=== PATIENT | female | born 1960 | race Caucasian/White ===

== ENCOUNTER 2021-03-18 12:24 | Outpatient (CLI) | payer MEDICARE, MEDICAID, SELFPAY ==
--- NOTE | ~2021-03-18 | CT_ITS ---
EXAMINATION: CT abdomen pelvis wo/w con DATE: 03/18/2021 14:05 INDICATION: Abdominal pain. Hematuria. TECHNIQUE: Computed tomography (CT) of the abdomen and pelvis was performed without intravenous contr ast. The dose-length product was 2633.81 mGy-cm. Automated exposure control and iterative reconstruct ion technique were employed. COMPARISON: CT dated 12/27/2018. FINDINGS: Lung bases are unremarkable. No significant pleural or pericardial effusion. Small hiatal h ernia. No significant vascular abnormality. No lymphadenopathy. Nonobstructive bowel gas pattern. Nor mal appendix. Fatty infiltration of the liver. Ureters are normal in course and caliber. No renal/ure teral stones or hydronephrosis. Gallbladder is present. Fatty infiltration of the liver. The spleen, pancreas, adrenal glands and kidneys are unremarkable. B ladder is unremarkable. No abnormal pelvic masses or fluid collections. No free air or free fluid. Mi ld osteoarthritis of the hips. No lytic or blastic lesions. Mild lumbar spondylosis. IMPRESSION: 1. No acute abnormality. No findings to account for hematuria. Reviewed, dictated and finalized at location B.
[2021-03-18 13:13] LABS: Add Urine Microscopic? YES; Appearance Urine Cloudy (Clear); Bacteria Urine Trace /hpf; Bilirubin Urine Negative (Negative); Blood Urine Negative (Negative); Color Urine Yellow (Yellow); Glucose Urine UA Negative (Negative); Ketones Urine Trace mg/dL (Negative); Leukocyte Esterase Ur Negative LEU/UL (Negative); Mucus Urine Rare /lpf; Nitrate Urine Negative (Negative); Protein Urine 1+ mg/dL (Negative); Squamous Epithelial Cell Urine Many /hpf (Few); WBC Urine 0-3 /hpf
[2021-03-18 13:17] LABS: Specific Grav Ur 1.033 (1.001-1.035)
[2021-03-18 13:52] LABS: Estimated Glomerular Filt Rate 57
== END 2021-03-18 12:25 | disposition home or self-care (01) ==
PROVIDERS: PCP Emergency Medicine; Visit Provider Emergency Medicine
DX: R10.9 Unspecified abdominal pain (principal); R31.9 Hematuria, unspecified
CPT/HCPCS: 74178; 81001; Q9967

== ENCOUNTER 2021-03-21 15:55 | Emergency (ER) | payer MEDICARE, MEDICAID, SELFPAY ==
--- NOTE | ~2021-03-21 | CT_ITS ---
EXAMINATION: CT abdomen pelvis w con DATE: 03/21/2021 20:04 INDICATION: Right-sided abdominal pain. TECHNIQUE: Computed tomography (CT) of the abdomen and pelvis was performed with 100 mL Omnipaque-350 intravenous contrast. Automated exposure control and iterative reconstruction technique were employe d. The dose-length product was 1417.82 mGy-cm. COMPARISON: 03/18/2021 FINDINGS: Lung bases are clear. Heart size is normal. No pericardial or pleural effusion. Small sliding-type hi atal hernia. Diffuse hepatic steatosis with geographic region of focal sparing in the posterior right hepatic lobe. Gallbladder, spleen, pancreas, right kidney and left adrenal gland are normal. 1.3 cm right adrenal adenoma with characteristic low attenuation on prior noncontrast imaging. Again seen is mild left renal atrophy with small region of cortical atrophy. Bladder is normal. The uterus is not identified and has likely been surgically resected. Bowels including the appendix are normal. No free intraperitoneal gas or fluid. No pathologically enlarged abdominal or pelvic lymphadenopathy. Mild f ocal lumbar levocurvature with mild spondylosis. IMPRESSION: 1. No acute intra-abdominal/pelvic process. 2. Small sliding-type hiatal hernia. 3. Diffuse hepatic steatosis. Reviewed, dictated and finalized at location A.
[2021-03-21 15:59] VITALS: BP 136/81; PULSE 69; RESP 18; TEMP 35.9; O2SAT 96
[2021-03-21 16:15] LABS: Basophils Percent Auto 0.1 % (0.2-1.2); Hematocrit 45.5 % (37.0-47.0); Hemoglobin 14.8 g/dL (12.0-15.0); Immature Granulocyte Absolute 0.03 K/mm3 (0.00-0.031); Immature Granulocyte Percent A 0.4 % (0-0.5); Lymphocytes Percent Auto 28.1 % (18.3-44.2); Mean Corpuscular HGB Conc 32.5 g/dl (32-36); Mean Corpuscular Volume 95.2 fl (80-100); Monocytes Absolute Auto 0.5 K/mm3 (0.1-0.6); Neutrophils Absolute Auto 4.3 K/mm3 (1.3-6.7); Neutrophils Percent Auto 63.4 % (45.5-73.1); Platelet Count Result 223 k/mm3 (150-375); Red Blood Count 4.78 M/mm3 (4.2-5.4); Red Cell Distribution Width 13.2 % (11.5-14.5); White Blood Count 6.8 K/mm3 (4.5-10.0)
[2021-03-21 16:26] LABS: Alanine Aminotransferase 7 U/L (4-35); Albumin Level 4.4 g/dL (3.5-5.1); Alkaline Phosphatase 99 U/L (38-126); Anion Gap 7 mmol/L (8-16); Aspartate Amino Transferase 32 U/L (14-36); Bilirubin,Total 0.3 mg/dL (0.2-1.3); Blood Urea Nitrogen 34 mg/dL (7-17); Calcium 9.6 mg/dL (8.4-10.2); Carbon Dioxide 30 mmol/L (22-30); Chloride 101 mmol/L (98-107); Estimated CRCL calculation 55 ml/min; Estimated Glomerular Filt Rate 51; Glucose 95 mg/dL (65-105); Lipase 89 U/L (23-300); Potassium 4.5 mmol/L (3.4-5.0); Sodium 138 mmol/L (137-145)
[2021-03-21 18:06] VITALS: BP 168/86; PULSE 65; RESP 14; TEMP 37; O2SAT 98
--- NOTE | 2021-03-21 18:47 | ED.ABDPAIN ---
HPI - Abdominal Pain General Chief Complaint: Abdominal Pain Stated Complaint: R Flank pain Time Seen by Provider: 03/21/21 18:09 Source: patient Mode of arrival: ambulatory Limitations: no limitations History of Present Illness HPI narrative: This is a 60 year old female that presents to the ER for right sided abdominal pain. Reports it has been intermittent over the last couple of weeks. Reports worsening over the last couple of days. Associated with diarrhea and dysuria. Denies fever, vomiting, or hematuria. Related Data Home Medications Medication Instructions Recorded Confirmed atorvastatin 03/21/21 carbidopa-levodopa tablet 03/21/21 divalproex PO 03/21/21 famotidine 03/21/21 levothyroxine 03/21/21 lurasidone [Latuda] mg 03/21/21 03/21/21 metoprolol succinate PO 03/21/21 Allergies Allergy/AdvReac Type Severity Reaction Status Date / Time hydrocodone Allergy Unknown Unknown Verified 03/21/21 16:05 meperidine Allergy Unknown Unknown Verified 03/21/21 16:05 morphine Allergy Unknown Unknown Verified 03/21/21 16:05 oxycodone Allergy Unknown Unknown Verified 03/21/21 16:05 Review of Systems Review of Systems: Narrative: CONSTITUTIONAL: Denies fever GASTROINTESTINAL: Reports abdominal pain, and diarrhea. Denies nausea and vomiting GENITOURINARY: Reports dysuria. Denies hematuria. All systems reviewed & are unremarkable except as noted in HPI and below PMFSH Past Medical History Medical History (Updated 03/21/21 @ 20:48 by Cynthia Suarez PA-C) History of hyperlipidemia History of hypertension History of hypothyroidism Social History Social History Smoking status: Former smoker Gender identity (if verbalized by the patient): Female Exam Narrative: Exam Narrative: GENERAL: Well-appearing, well-nourished, and in no acute distress. HEAD: Normocephalic, atraumatic. EYES: EOMI. CHEST: Clear to auscultation. No respiratory distress. No wheezes rales or rhonchi HEART: Regular rate and rhythm. No murmur heard. Normal peripheral pulses. ABDOMEN: Soft, nondistended, normal active bowel sounds. Tender to palpation throughout the right side of the abdomen, without guarding EXTREMITIES: Normal range of motion. No edema. SKIN: Warm, dry, no rash. NEURO: No focal deficits. Alert and oriented x3. PSYCH: Normal mood and affect Course Vital Signs Vital signs: Vital Signs Temperature 96.7 F L 03/21/21 15:59 Pulse Rate 69 03/21/21 15:59 Respiratory Rate 18 03/21/21 15:59 Blood Pressure 136/81 03/21/21 15:59 Pulse Oximetry 96 03/21/21 15:59 Temperature 98.6 F 03/21/21 18:06 Pulse Rate 63 03/21/21 20:45 Respiratory Rate 21 H 03/21/21 20:45 Blood Pressure 153/97 H 03/21/21 20:45 Pulse Oximetry 97 03/21/21 20:45 MDM - Abdominal Pain MDM Narrative Medical decision making narrative: Patient presents to the ER for abdominal pain present over the last couple of weeks. Worsening over the last couple of days. She is afebrile and nontoxic appearing. Vitals are stable. CBC and metabolic panel without concerning findings. Lipase is normal. UA without evidence of infection. CT scan abdomen and pelvis is without acute findings. Patient updated on case findings. Able to tolerate p.o. intake. She is stable and felt appropriate for further outpatient evaluation. She is to follow-up with primary care doctor. She was given warnings to return to the ER Lab Data Attestation: I reviewed the patient's lab results. Result diagrams: 03/21/21 16:08 03/21/21 16:08 Labs: Lab Results 03/21/21 03/21/21 03/21/21 Range/Units 16:08 16:08 19:18 WBC 6.8 (4.5-10.0) K/mm3 RBC 4.78 (4.2-5.4) M/mm3 Hgb 14.8 (12.0-15.0) g/dL Hct 45.5 (37.0-47.0) % MCV 95.2 (80-100) fl MCH 31.0 (26-34) pg MCHC 32.5 (32-36) g/dl RDW 13.2 (11.5-14.5) % Plt Count 223 (150-375) k/mm3 MPV 10.0 (7.4-10.4) fl Immature Gran % (Auto)
[2021-03-21 19:29] LABS: Add Urine Microscopic? YES; Appearance Urine Clear (Clear); Bilirubin Urine Negative (Negative); Blood Urine 2+ (Negative); Color Urine Yellow (Yellow); Glucose Urine UA Negative (Negative); Ketones Urine Trace mg/dL (Negative); Leukocyte Esterase Ur Negative LEU/UL (Negative); Mucus Urine Rare /lpf; Nitrate Urine Negative (Negative); Protein Urine Negative (Negative); Specific Grav Ur 1.028 (1.001-1.035); Squamous Epithelial Cell Urine Rare /hpf (Few); Urobilinogen Urine Negative mg/dL (<2.0)
[2021-03-21] MEDS: KETOROLAC 30 MG/ML VIAL (*BKC) IV PUSH (20:43)
[2021-03-21 20:45] VITALS: BP 153/97; PULSE 63; RESP 21; O2SAT 97
[2021-03-21 21:22] VITALS: BP 127/81; PULSE 61; RESP 14; O2SAT 98
== END 2021-03-21 21:16 | disposition home or self-care (01) ==
PROVIDERS: Emergency Provider Emergency Medicine; PCP Emergency Medicine
DX: R10.9 Unspecified abdominal pain (principal); E78.5 Hyperlipidemia, unspecified; I10 Essential (primary) hypertension; E03.9 Hypothyroidism, unspecified; Z87.891 Personal history of nicotine dependence; K44.9 Diaphragmatic hernia without obstruction or gangrene; K76.0 Fatty (change of) liver, not elsewhere classified
CPT/HCPCS: 36415; 74177; 80053; 81001; 83690; 85025; 96374; 96375; 99284; J0131; J1885; Q9967

== ENCOUNTER 2023-04-16 13:46 | Outpatient (CLI) | payer MEDICARE, MEDICAID, SELFPAY ==
--- NOTE | ~2023-04-16 | US_ITS ---
US thyroid INDICATION: Hypothyroidism TECHNIQUE: Real-time sonographic images of the thyroid gland were obtained. COMPARISON: No prior studies for comparison. FINDINGS: The right thyroid lobe measures 3.1 x 1.4 x 0.9 cm. The left thyroid lobe measures 3.2 x 1 .1 x 1.2 cm. There is normal echotexture and echogenicity throughout the thyroid gland. No discrete n odules identified. Normal vascular flow is present. IMPRESSION: 1. Atrophic thyroid without discrete nodule or abnormal vascularity. Reviewed, dictated and finalized at location L.
== END 2023-04-16 13:47 | disposition home or self-care (01) ==
PROVIDERS: PCP Emergency Medicine; Visit Provider Emergency Medicine
DX: E03.9 Hypothyroidism, unspecified (principal)
CPT/HCPCS: 76536

== ENCOUNTER 2023-12-28 13:01 | Emergency (ER) | payer MEDICARE, MEDICAID, SELFPAY ==
[2023-12-28 13:03] VITALS: BP 120/86; PULSE 78; RESP 16; TEMP 36.8; O2SAT 98
--- NOTE | 2023-12-28 13:59 | ED.GENADULT ---
HPI - General Adult General Chief complaint: Extremity Problem,Nontraumatic Stated complaint: CHRONIC LYMPHADEMA PAIN Time Seen by Provider: 12/28/23 13:58 Source: patient Mode of arrival: ambulatory Limitations: no limitations History of Present Illness HPI narrative: This is a 63-year-old female who presents to the ED with chief complaint of bilateral chronic lower extremity edema. Reports that she has chronic lymphedema she is here for the same today. Patient is a resident at [facility] not right now and is told by her upper caser to come to the ER for the leg swelling. Patient states that she does not want to be here and knows that she needs to follow-up with her PCP on this. She states that she has no change in the leg swelling but she does have constant burning which is bothersome to her. Denies any wounds, fevers, chills, nausea, vomiting. Related Data Home Medications Medication Instructions Recorded Confirmed atorvastatin 20 mg tablet 03/21/21 carbidopa 25 mg-levodopa 100 mg tablet 03/21/21 tablet divalproex 500 mg tablet,extended PO 03/21/21 release 24 hr famotidine 20 mg tablet 03/21/21 levothyroxine 100 mcg tablet 03/21/21 lurasidone 40 mg tablet (Latuda) mg 03/21/21 03/21/21 metoprolol succinate 50 mg PO 03/21/21 tablet,extended release 24 hr Allergies Allergy/AdvReac Type Severity Reaction Status Date / Time hydrocodone Allergy Unknown Unknown Verified 03/21/21 16:05 meperidine Allergy Unknown Unknown Verified 03/21/21 16:05 morphine Allergy Unknown Unknown Verified 03/21/21 16:05 oxycodone Allergy Unknown Unknown Verified 03/21/21 16:05 Review of Systems Review of Systems: All systems as dictated in [facility] Past Medical History Medical History (Updated 12/28/23 @ 14:01 by Serg Henriquez PA-C) History of hyperlipidemia History of hypertension History of hypothyroidism Social History Social History Smoking status: Former smoker Gender identity (if verbalized by the patient): Female Exam Narrative: GENERAL: Well-appearing, well-nourished, and in no acute distress. HEAD: Normocephalic, atraumatic. EYES: PERRLA and EOMI. ENT: Nares clear, no rhinorrhea or epistaxis. Mucous membranes moist. Oropharynx without tonsillar hypertrophy exudate or other lesions. NECK: Supple. No adenopathy or masses. CHEST: No respiratory distress. Clear to auscultation. No wheezes rales or rhonchi HEART: Regular rate and rhythm. No murmur heard. Normal peripheral pulses. ABDOMEN: Soft, nontender, nondistended, normal active bowel sounds. MSK: Bilateral lower extremity nonpitting edema from feet to knee level. No redness, warmth. Minimal tenderness bilaterally. Neurovascularly intact distally. SKIN: Warm, dry, no rash. NEURO: Alert and oriented x3. No focal deficits. PSYCH: Normal mood and affect. Course Vital Signs Vital signs: Vital Signs Temperature 98.2 F 12/28/23 13:03 Pulse Rate 78 12/28/23 13:03 Respiratory Rate 16 12/28/23 13:03 Blood Pressure 120/86 12/28/23 13:03 Pulse Oximetry 98 12/28/23 13:03 Oxygen Delivery Room Air 12/28/23 13:03 Temperature 98.2 F 12/28/23 13:03 Pulse Rate 78 12/28/23 13:03 Respiratory Rate 16 12/28/23 13:03 Blood Pressure 120/86 12/28/23 13:03 Pulse Oximetry 98 12/28/23 13:03 Oxygen Delivery Room Air 12/28/23 13:03 Medical Decision Making MDM Narrative Medical decision making narrative: This is a 63-year-old female who presents to the ED with chief complaint of chronic lower leg swelling and pain. She has chronic lymphedema note to her. Her exam is consistent with this finding. Vitals are normal. No evidence of any DVT or cellulitis on exam. She is just seeking some help with pain control and would like to get into physical therapy again for this lymphedema. I encouraged her to follow up with PCP on this. She will be discharged in stable condition. Prescription for Tylenol and
[2023-12-28] MEDS: IBUPROFEN 600 MG TABLET PO (14:42)
[2023-12-28] MEDS: ACETAMINOPHEN 500 MG TABLET 1000 MG PO (14:43)
== END 2023-12-28 14:47 | disposition home or self-care (01) ==
PROVIDERS: Emergency Provider Physician Assistant; PCP Emergency Medicine
DX: I89.0 Lymphedema, not elsewhere classified (principal); E78.5 Hyperlipidemia, unspecified; I10 Essential (primary) hypertension; E03.9 Hypothyroidism, unspecified; Z87.891 Personal history of nicotine dependence
CPT/HCPCS: 99283; A9270

== ENCOUNTER 2024-02-10 10:30 | Outpatient (CLI) | payer MEDICARE, MEDICAID, SELFPAY ==
--- NOTE | ~2024-02-10 | US_ITS ---
Abdominal Sonogram: Real-time sonographic imaging of the abdomen was performed. Clinical History: Abdominal pain Findings: The liver appears echogenic, with no evidence of mass lesion or bile duct dilatation. Main portal vein demonstrates normal direction of flow. The spleen is normal in size without evidence of focal lesion. The gallbladder is well distended, and appears normal with no evidence of gallstone or wall thickening. The common bile duct measures 9 mm. The visualized pancreas, aorta, and IVC are un remarkable. The right kidney measures 12.6 cm in length and the left kidney measures 10.4 cm. There is no hydronephrosis or renal calculus. Impression: Diffuse fatty infiltration of liver. Reviewed, dictated and finalized at location M. Impression: Diffuse fatty infiltration of liver.
== END 2024-02-10 10:31 | disposition home or self-care (01) ==
PROVIDERS: PCP Emergency Medicine; Visit Provider Emergency Medicine
DX: K76.0 Fatty (change of) liver, not elsewhere classified (principal); I89.0 Lymphedema, not elsewhere classified
CPT/HCPCS: 76700

== ENCOUNTER 2024-09-11 09:33 | Observation (INO) | payer OTHER, SELFPAY ==
[2024-09-11] VITALS (9 sets, daily range): BP systolic 108–161; BP diastolic 70–93; PULSE 61–70; RESP 13–20; TEMP 36.3–36.7; O2SAT 92–98; BMI 44.7
--- NOTE | ~2024-09-11 | XR_ITS ---
Left Knee Technique: AP and lateral views were obtained. Clinical History: This Findings: No fracture or dislocation is seen. Left knee arthroplasty in place. Soft tissues are unrem arkable. No joint effusion is seen. Impression: No acute abnormality seen. Left knee arthroplasty. Reviewed, dictated and finalized at location . Impression: No acute abnormality seen. Left knee arthroplasty.
--- NOTE | ~2024-09-11 | XR_ITS ---
Clinical Indication: Weakness PA and lateral views of the chest: Comparison: None Findings: Possible minimal central congestive change, without evidence of focal consolidation or pleu ral effusion. Cardiomediastinal silhouette is within normal limits. Bones and soft tissues are unrem arkable. Impression: Possible minimal central congestive change. Reviewed, dictated and finalized at location . Impression: Possible minimal central congestive change.
--- NOTE | ~2024-09-11 | CT_ITS ---
Noncontrast CT scan of the cervical spine Technique: Multiple contiguous axial [address] images of the cervical spine were obtained and rec onstructed in 2D sagittal and coronal planes on the acquisition scanner. Dose reduction technique was used on this scan by utilizing automated exposure control, adjustment of the mA and/or kV according to patient size. The dose-length product (DLP) was 352.06 mGy-cm. Clinical History: Pain Findings: No acute fracture. There is minimal grade 1 anterolisthesis of C3 over C4. Intervertebral d isc spaces are well preserved. There there are scattered mild facet joint degenerative changes. There are uncovertebral degenerative changes at C2-C3. No prevertebral soft tissue swelling. Impression: No acute fracture. Minimal grade 1 anterolisthesis of C3 over C4. Mild degenerative change, as above. Reviewed, dictated and finalized at [facility]. Impression: No acute fracture. Minimal grade 1 anterolisthesis of C3 over C4. Mild degenerative change, as above.
--- NOTE | ~2024-09-11 | MR_ITS ---
MRI of the brain Clinical History: Slurred speech Technique: Axial and sagittal T1-weighted images were acquired. These were followed by axial T2-weigh sourav, diffusion weighted, gradient, and FLAIR images. Following intravenous administration of 20 cc Mu ltiHance gadolinium, T1-weighted fat-sat imaging was performed in the axial and coronal planes. Findings: No abnormal signal seen in the brain parenchyma. No acute infarct, intracranial hemorrhage, or mass lesion. Ventricles and subarachnoid spaces are unremarkable. Orbits are unremarkable. Paranasal sinuses and m astoid air cells are clear. Major intracranial flow voids are intact. Sagittal midline structures are intact. No abnormal postcontrast enhancement. IMPRESSION: Unremarkable exam. Reviewed, dictated and finalized at location M. IMPRESSION: Unremarkable exam.
--- NOTE | ~2024-09-11 | CT_ITS ---
Non-contrast Head CT History: Slurred speech Technique: Axial non-contrast imaging of the brain was performed. Dose reduction technique was used on this scan by utilizing automated exposure control and iterative reconstruction technique. The dose -length product (DLP) was 605.33 mGy-cm. Findings: There is no evidence of intracranial hemorrhage, mass lesion, or acute infarct. Brain par enchyma appears normal. The ventricles and subarachnoid spaces are normal in size. The calvarium ap pears normal. The visualized paranasal sinuses and mastoid air cells are clear. Impression: No significant abnormality seen. Reviewed, dictated and finalized at location . Impression: No significant abnormality seen.
--- NOTE | ~2024-09-11 | CT_ITS ---
Noncontrast CT scan of the thoracolumbar spine CLINICAL HISTORY: Status post TECHNIQUE: Axial noncontrast imaging of the thoracolumbar spine was performed. Sagittal and coronal r eformatted images were constructed. Dose reduction technique was used on this scan by utilizing autom ated exposure control and iterative reconstruction technique. The dose-length product (DLP) was 1836. 20 mGy-cm. FINDINGS: There is no fracture or subluxation of the thoracic spine. Vertebral bodies maintain normal height and alignment. Intervertebral disc spaces are relatively well preserved throughout. No significant disc bulge or herniation seen at any thoracic level. No spinal canal stenosis or cord compression identified in the thoracic spine. Neural foramina are preserved throughout the thoracic s pine. There is no fracture or subluxation lumbar spine. Vertebral bodies maintain normal height and alignme nt. Intervertebral disc spaces are relatively well preserved throughout. No significant disc bulge or herniation seen at any lumbar level. No spinal canal stenosis or neural foraminal narrowing evident. Paravertebral soft tissues are unremarkable. Minimal pleural effusions are present. Impression: No acute abnormality. Minimal bilateral pleural effusions. Reviewed, dictated and finalized at location . Impression: No acute abnormality. Minimal bilateral pleural effusions.
--- NOTE | ~2024-09-11 | XR_ITS ---
Right Knee Technique: AP, lateral, and oblique views were obtained. Clinical History: Weakness Findings: No fracture or dislocation is seen. Right knee arthroplasty in place. Soft tissues are unre markable. No joint effusion is seen. Impression: No acute abnormality. Right knee arthroplasty. Reviewed, dictated and finalized at location . Impression: No acute abnormality. Right knee arthroplasty.
[2024-09-11 09:43] LABS: Glucose Point of Care 107 mg/dl (65-105)
--- NOTE | 2024-09-11 10:08 | ECG_ITS ---
Test Date: 2024-09-11 10:34:45 Measurements Intervals [place] Rate: 65 P: 54 [place]: 218 QRS: -31 QRSD: 124 T: -10 QT: 382 QTc: 398 Interpretive Statements SINUS RHYTHM WITH FIRST DEGREE AV BLOCK LEFT AXIS DEVIATION [QRS AXIS < -30] MODERATE VOLTAGE CRITERIA FOR LVH, CONSIDER NORMAL VARIANT [MEETS CRITERIA IN ONE OF: R(aVL), S(V1), R(V5), R(V5/V6)+S(V1)] POSSIBLE SEPTAL MYOCARDIAL INFARCTION , OF INDETERMINATE AGE [30 ms Q WAVE IN V1/V2] No previous ECG available for comparison Electronically Signed On 09-12-2024 10:36:31 CDT by Almas Ng M.D.
--- NOTE | 2024-09-11 10:12 | ED.GENADULT ---
HPI - General Adult General Chief complaint: Weakness Stated complaint: weakness Time Seen by Provider: 09/11/24 10:08 Source: patient and EMS Mode of arrival: EMS History of Present Illness HPI narrative: patient is telling me that she came from assisting living, complaining of general weakness and slurred speech. Patient is telling me that she had a lunch yesterday at 5:00 p.m. and her voice was normal at that time at 6:00 p.m. somebody notice that she have slurred speech. Patient is telling me also she had a fall, does not remember when and she have neck pain, back pain, knees pain. Patient is awake, alert oriented to her name and age only. She denies any fever, chills, nausea, vomiting, chest pain, shortness of breath, headache or focal weakness PATIENT ANTI SCHIZOPHRENIC MEDICINE WAS CHANGED FEW DAYS AGO. Related Data Home Medications Medication Instructions Recorded Confirmed atorvastatin 20 mg tablet 03/21/21 atorvastatin 20 mg tablet mg 09/11/24 benztropine 0.5 mg tablet mg 09/11/24 carbidopa 25 mg-levodopa 100 mg tablet 09/11/24 tablet cholecalciferol (vitamin D3) 50 09/11/24 mcg (2,000 unit) tablet divalproex 500 mg tablet,extended mg PO 09/11/24 release 24 hr dulaglutide 0.75 mg/0.5 mL mg subcut 09/11/24 subcutaneous [facility] duloxetine 30 mg capsule,delayed mg PO 09/11/24 release famotidine 20 mg tablet mg 09/11/24 furosemide 20 mg tablet mg 09/11/24 ibuprofen 600 mg tablet mg 09/11/24 levothyroxine 100 mcg tablet mcg 09/11/24 lorazepam 1 mg tablet mg 09/11/24 lurasidone 80 mg tablet mg 09/11/24 metoprolol succinate 50 mg mg PO 09/11/24 tablet,extended release 24 hr metronidazole 0.75 % topical cream applic topical 09/11/24 paliperidone 6 mg tablet,extended mg PO 09/11/24 release 24 hr risperidone 1 mg tablet mg 09/11/24 topiramate 50 mg tablet mg 09/11/24 Allergies Allergy/AdvReac Type Severity Reaction Status Date / Time hydrocodone Allergy Unknown Unknown Verified 09/11/24 14:02 meperidine Allergy Unknown Unknown Verified 09/11/24 14:02 morphine Allergy Unknown Unknown Verified 09/11/24 14:02 oxycodone Allergy Unknown Unknown Verified 09/11/24 14:02 Review of Systems Review of Systems: ROS unobtainable: Yes unobtainable due to mental status PMFSH Past Medical History Medical History History of hyperlipidemia History of hypertension History of hypothyroidism Social History Social History Smoking status: Former smoker Gender identity (if verbalized by the patient): Female Exam Narrative: General appearance: Well-developed, well-nourished, slurred speech Skin: Normal color 3+ edema lower extremity bilaterally Head: Normocephalic, nontraumatic Eyes: Clear conjunctiva ENT: Oropharynx normal, ears normal, nose normal , SLIGHT RIGHT FACIAL DROOPING Neck: Supple, nontender Chest and respiratory: Airway patent, no respiratory distress, no accessory muscle use Heart: Regular rate/rhythm Abdomen: Soft, nontender, no organomegaly, quiet bowel sounds Vascular: Normal peripheral pulses, normal capillary refill. Musculoskeletal: limited range of motion of the lower extremities, diffuse pain, diffuse pain thoracic and lumbar spine and bilaterally, no bruises Neurologic: Alert and oriented to her name and age only, slurred speech Course Vital Signs Vital signs: Vital Signs Temperature 36.3 C L 09/11/24 09:35 Pulse Rate 66 09/11/24 09:35 Respiratory Rate 18 09/11/24 09:35 Blood Pressure 112/70 09/11/24 09:35 Pulse Oximetry 94 09/11/24 09:35 Oxygen Delivery Room Air 09/11/24 09:35 Temperature 36.3 C L 09/11/24 09:35 Pulse Rate 66 09/11/24 09:35 Respiratory Rate 18 09/11/24 09:35 Blood Pressure 112/70 09/11/24 09:35 Pulse Oximetry 94 09/11/24 09:35 Oxygen Delivery Room Air 09/11/24 09:35 Medical Decision Making MDM Narrative Medical decision making narrative: PATIENT CAME TO THE ED FROM RESIDENTIAL BY AMBULANCE WITH WEAKNESS SLURRED SPEECH NOTICED YESTERDAY. VITAL SIGNS ARE STABLE PHYSICAL EXAMINATION SHOWED SLIGHT RIGHT FACIAL DROOPING OF UNKNOWN DURATION AND SLIGHT SLURRED SPEECH. PATIENT IS AWAKE AND ORIENTED TO HER NAME AND AGE ONLY. DIFFERENTIAL DIAGNOSIS ACUTE CVA, HYPOGLYCEMIA, DEHYDRATION, ELECTROLYTE IMBALANCE, URINARY TRACT INFECTION, PSYCH MEDICATION RELATED SYMPTOMS BLOOD WORKUP TODAY SHOWED NORMAL WBC, NORMAL ELECTROLYTES, NORMAL LIVER FUNCTION TEST, URINALYSIS SHOWED NO SIGN OF INFECTION, X-RAY OF THE KNEES SHOWED NO ACUTE ABNORMALITY CHEST X-RAY SHOWED NO ACUTE ABNORMALITY CT SCAN OF THE THORACIC AND LUMBAR SPINE SHOWED NO ACUTE ABNORMALITY, CT HEAD AND CT CERVICAL SPINE WITHOUT CONTRAST SHOWED NO ACUTE ABNORMALITIES. THE PATIENT AND HER FAMILY MEMBER AT THE BEDSIDE TELLING ME THAT PATIENT HAS SLURRED SPEECH IS IMPROVING AND WOULD LIKE TO HAVE A MEAL RIGHT NOW. ADMIT TO HOSPITALIST DIAGNOSIS OF SLURRED SPEECH SECONDARY TO CVA VERSUS PSYCH MEDICATIONS Differential Diagnosis Differential Diagnosis: ABOVE Vital Signs Vital Signs: Vital Signs Temperature 36.3 C L 09/11/24 09:35 Pulse Rate 66 09/11/24 09:35 Respiratory Rate 18 09/11/24 09:35 Blood Pressure 112/70 09/11/24 09:35 Pulse Oximetry 94 09/11/24 09:35 Oxygen Delivery Room Air 09/11/24 09:35 Temperature 36.3 C L 09/11/24 09:35 Pulse Rate 66 09/11/24 09:35 Respiratory Rate 18 09/11/24 09:35 Blood Pressure 112/70 09/11/24 09:35 Pulse Oximetry 94 09/11/24 09:35 Oxygen Delivery Room Air 09/11/24 09:35 Lab Data 09/11/24 10:15 09/11/24 10:15 Labs: Lab Results 09/11/24 09/11/24 09/11/24 Range/Units 09:41 10:15 13:03 WBC 6.4 (4.5-10.0) K/mm3 RBC 4.43 (4.2-5.4) M/mm3 Hgb 13.9 (12.0-15.0) g/dL Hct 44.5 (37.0-47.0) % MCV 100.5 H (80-100) fl MCH 31.4 (26-34) pg MCHC 31.2 L (32-36) g/dl RDW 13.5 (11.5-14.5) % Plt Count 165 (150-375) k/mm3 MPV 10.9 H (7.4-10.4) fl Immature Gran % (Auto) 0.3 (0-0.5) % Neut % (Auto) 61.0 (45.5-73.1) % Lymph % (Auto) 28.0 (18.3-44.2) % [place] % (Auto) 10.4 H (2.6-8.5) % Eos % (Auto) 0.0 (0-4.4) % Baso % (Auto) 0.3 (0.2-1.2) % Lymph # (Auto) 1.78 (0.9-3.2) K/mm3 [place] # (Auto) 0.7 H (0.1-0.6) K/mm3 Eos # (Auto) 0.0 (0-0.3) K/mm3 Baso # (Auto) 0.0 (0.0-0.1) K/mm3 Abs Immat Gran (auto) 0.02 (0.00-0.031) K/mm3 Absolute Neuts (auto) 3.9 (1.3-6.7) K/mm3 Absolute Nucleated RBC 0.000 (0.0-0.012) K/mm3 Nucleated RBC % 0.0 (0.0-0.2) % Sodium 140 (137-145) mmol/L Potassium 4.1 (3.4-5.0) mmol/L Chloride 101 (98-107) mmol/L Carbon Dioxide 31 H (22-30) mmol/L Anion Gap 8 (4-12) mmol/L BUN 22 H D (7-17) mg/dL Creatinine 0.80 (0.7-1.0) mg/dL Estim Creat Clear Calc Not Reportable Estimated GFR > 60 (59 - ) Glucose 96 (65-110) mg/dL POC Capillary Glucose 107 H (65-105) mg/dl Lactic Acid 1.8 (0.7-2.0) mmol/L Calcium 9.6 (8.4-10.2) mg/dL Total Bilirubin 0.5 (0.2-1.3) mg/dL AST 22 (14-36) U/L ALT 7 (6-35) U/L Alkaline Phosphatase 98 (38-126) U/L C-Reactive Protein 0.7 (<1.0) mg/dL Total Protein 7.0 (6.3-8.2) g/dL Albumin 4.1 (3.5-5.1) g/dL Urine Color Yellow (Yellow) Urine Appearance Cloudy H (Clear) Urine pH 7.0 (5.0-9.0) Ur Specific [place] 1.016 (1.001-1.035) Urine Protein Negative (Negative) mg/dL Urine Glucose (UA) Negative (Negative) mg/dL Urine Ketones Negative (Negative) mg/dL Ur Blood (Man) Negative (Negative) Urine Nitrate Negative (Negative) Urine Bilirubin Negative (Negative) Urine Urobilinogen 1.0 (<2.0) mg/dL Add Ur Microanalysis Reviewed Leukocyte Esterase Rfl Negative (Negative) CHUN/UL Urine RBC 3-5 H (0-2) /hpf Urine WBC 0-5 (0-3) /hpf Ur Squamous Epith Cells None seen (Few) /hpf Amorphous Sediment Few H (None) Urine Bacteria None seen /hpf Urine Casts 0-2 Imaging Data Radiologist's impression: Impressions Cervical Spine CT 09/11/24 11:26 Impression: No acute fracture. Minimal grade 1 anterolisthesis of C3 over C4. Mild degenerative change, as above. Head CT 09/11/24 11:26 Impression: No significant abnormality seen. Thoracic/Lumbar Spine CT 09/11/24 11:27 Impression: No acute abnormality. Minimal bilateral pleural effusions. Chest X-Ray 09/11/24 11:39 Impression: Possible minimal central congestive change. Knee X-Ray 09/11/24 11:39 Impression: No acute abnormality seen. Left knee arthroplasty. Knee X-Ray 09/11/24 11:39 Impression: No acute abnormality. Right knee arthroplasty. ECG Data EKG #1: Attestation: I personally reviewed and interpreted this ECG as follows: ECG completion date: 09/11/24 Interpretation: NORMAL SINUS RHYTHM AT 65 BEATS PER MINUTE, WITH FIRST-DEGREE HEART BLOCK, LEFT AXIS DEVIATION, POOR R-WAVE PROGRESSION, POSSIBLE SEPTAL INFARCTION AGE INDETERMINATE, NO PREVIOUS EKG AVAILABLE FOR COMPARISON Critical Care Time Critical Care Time Critical Care Time: No Discharge Plan Discharge Patient Disposition: Still a Patient Prescriptions: No Action atorvastatin 20 mg tablet atorvastatin 20 mg tablet benztropine 0.5 mg tablet metoprolol succinate 50 mg tablet extended release 24 hr PO levothyroxine 100 mcg tablet famotidine 20 mg tablet divalproex 500 mg tablet extended release 24 hr PO metronidazole 0.75 % cream TOPICAL furosemide 20 mg tablet lorazepam 1 mg tablet ibuprofen 600 mg tablet carbidopa-levodopa 25-100 mg tablet risperidone 1 mg tablet topiramate 50 mg tablet duloxetine 30 mg capsule,delayed release(DR/EC) PO paliperidone 6 mg tablet extended release 24 hr PO cholecalciferol (vitamin D3) 50 mcg (2,000 unit) tablet lurasidone 80 mg tablet Trulicity 0.75 mg/0.5 mL pen injector SUBCUT acetaminophen [Tylenol Arthritis Pain] 650 mg tablet extended release 650 mg PO Q12H PRN (Reason: pain) Qty: 30 0RF Follow-up/Referrals: Jn Ley MD [Physician] - Quality Stroke Scale Stroke Scale 1: Stroke scale date:: 09/11/24 Stroke scale time:: 10:38 1a Level of consciousness: alert-0 1b Level of consciousness questions: answers both correctly-0 1c Level of consciousness commands: obeys both correctly-0 2 Best gaze: normal-0 3 Visual: no visual loss-0 4 Facial palsy: minor paralysis-1 5a Motor: left arm: no drift-0 5b Motor: right arm: no drift-0 6a Motor: left leg: no drift-0 6b Motor: right leg: no drift-0 7 Limb ataxia: absent-0 8 Sensory: normal-0 9 Best language: no aphasia-0 10 Dysarthria: slurs some words-1 11 Extinction and inattention: no abnormality-0 Level:: 2
[2024-09-11] MEDS: SODIUM CHLORIDE 0.9% IV 1,000 ML 999 ML IV CONT (10:19)
[2024-09-11 10:22] LABS: Basophils Percent Auto 0.3 % (0.2-1.2); Hematocrit 44.5 % (37.0-47.0); Hemoglobin 13.9 g/dL (12.0-15.0); Immature Granulocyte Absolute 0.02 K/mm3 (0.00-0.031); Immature Granulocyte Percent A 0.3 % (0-0.5); Lymphocytes Absolute Auto 1.78 K/mm3 (0.9-3.2); Mean Corpuscular HGB Conc 31.2 g/dl (32-36); Mean Corpuscular Hemoglobin 31.4 pg (26-34); Mean Corpuscular Volume 100.5 fl (80-100); Mean Platelet Volume 10.9 fl (7.4-10.4); Monocytes Absolute Auto 0.7 K/mm3 (0.1-0.6); Monocytes Percent Auto 10.4 % (2.6-8.5); Neutrophils Absolute Auto 3.9 K/mm3 (1.3-6.7); Platelet Count Result 165 k/mm3 (150-375); Red Blood Count 4.43 M/mm3 (4.2-5.4); Red Cell Distribution Width 13.5 % (11.5-14.5); White Blood Count 6.4 K/mm3 (4.5-10.0)
[2024-09-11 10:38] LABS: Add Urine Microscopic? YES; Appearance Urine Cloudy (Clear); Bacteria Urine None Seen /hpf; Bilirubin Urine Negative (Negative); Blood Urine Negative (Negative); Color Urine Yellow (Yellow); Glucose Urine UA Negative (Negative); Ketones Urine Negative (Negative); Leukocyte Esterase Ur Negative LEU/UL (Negative); Need Manual Microscopic Reviewed; Nitrate Urine Negative (Negative); Non Pathogenic Casts 0-2; Protein Urine Negative (Negative); Specific Grav Ur 1.016 (1.001-1.035); Squamous Epithelial Cell Urine None Seen /hpf (Few); WBC Urine 0-5 /hpf (0-3)
[2024-09-11 10:40] LABS: Amorphous Sediment Urine Few
[2024-09-11 10:42] LABS: Alanine Aminotransferase 7 U/L (6-35); Albumin Level 4.1 g/dL (3.5-5.1); Alkaline Phosphatase 98 U/L (38-126); Anion Gap 8 mmol/L (4-12); Aspartate Amino Transferase 22 U/L (14-36); Bilirubin,Total 0.5 mg/dL (0.2-1.3); Blood Urea Nitrogen 22 mg/dL (7-17); Calcium 9.6 mg/dL (8.4-10.2); Carbon Dioxide 31 mmol/L (22-30); Chloride 101 mmol/L (98-107); Estimated Glomerular Filt Rate > 60; Glucose 96 mg/dL (65-110); Potassium 4.1 mmol/L (3.4-5.0); Sodium 140 mmol/L (137-145)
[2024-09-11 12:18] LABS: CRP 0.7 mg/dL (<1.0)
[2024-09-11 13:23] LABS: Lactic Acid Reflex 1.8 mmol/L (0.7-2.0)
[2024-09-11] MEDS: ASPIRIN 81 MG CHEWABLE TABLET 324 MG PO (14:09)
--- NOTE | 2024-09-11 14:27 | P.HP_ITS ---
H&P: HPI History of Present Illness Date/Time: 09/11/24 14:27 Chief Complaint: Slurred speech Weakness Narrative: 63-year-old female with PMHx: Of schizophrenia, on injections, dyslipidemia, HTN, was brought into the emergency room for further evaluation of complaint of ongoing slurred speech. Family is by the bedside who participate in patient's HPI, who reports the last time they seen her was on Thursday when her speech was much clear, the report yesterday around 5:00 p.m. it was noted the patient was having slurred speech. Patient lives at [facility], this is where her medications are managed by staff, also she is given some assistance with her ADLs, it was reported that yesterday patient had a fall, after fall she declined any emergency room visit, when patient went to go get her medications last night staff noticed patient with some slurred speech, patient admits today that she did not want to seek medical attention at that time. Patient reports when she awoke this morning and continue to have slurred speech staff insisted that EMS come and have her evaluated in the emergency room. Miss Manuel admits that recently her medication was changed for her schizophrenia she is unsure the dosage change, but she is able to tell me that 1 of her medications have been Dcd. ED Work-up reveals: All vitals are stable, labs are within normal range, her initial exam revealed slight right facial drooping,as well as noticeable slurred speech, it was reported she was only a/ox1. initial lab work revealed normal WBC, normal electrolytes, normal liver function test, UA unremarkable no signs of infection x-ray of the knee showed no acute abnormality, chest x-ray showed no acute abnormality CT of the thoracic and lumbar spine showed no acute abnormality CT head and CT cervical spine without contrast showed no acute abnormalities patient was also given meal of cheese burger while in the emergency room. Patient admitted to hospital for ongoing surveillance of slurred speech, either rule out CVA versus new psychotropic medications. Review of Systems Review of Systems: All systems reviewed & are unremarkable except as noted in HPI and below REPLACED BY [facility] Past Medical History Medical History History of hyperlipidemia History of hypertension History of hypothyroidism Social History Social History Smoking status: Never smoker Alcohol intake: never Substance use: never Substance use type: does not use Do You Feel Safe in your Home?: Yes Lack of Transportation: No Lack of Food: Never True Current Housing: I Have Housing Concerned About Future Housing: No Difficulty Paying Gas/Electric Bills: No Difficulty Paying for Meds: No Currently Unemployed: No Education: Grade School Difficulty w/ Childcare or Family Care: No Gender identity (if verbalized by the patient): Female Spiritual care concerns: No Meds Home Medications and Allergies Home Medications Medication Instructions Recorded Confirmed Type atorvastatin 20 mg tablet 03/21/21 History acetaminophen 650 mg 650 mg PO Q12H PRN pain #30 tabs 12/28/23 Rx tablet,extended release (Tylenol Arthritis Pain) atorvastatin 20 mg tablet mg 09/11/24 History benztropine 0.5 mg tablet mg 09/11/24 History carbidopa 25 mg-levodopa 100 mg tablet 09/11/24 History tablet cholecalciferol (vitamin D3) 50 09/11/24 History mcg (2,000 unit) tablet divalproex 500 mg tablet,extended mg PO 09/11/24 History release 24 hr dulaglutide 0.75 mg/0.5 mL mg subcut 09/11/24 History subcutaneous pen injector (Trulicity) duloxetine 30 mg capsule,delayed mg PO 09/11/24 History release famotidine 20 mg tablet mg 09/11/24 History furosemide 20 mg tablet mg 09/11/24 History ibuprofen 600 mg tablet mg 09/11/24 History levothyroxine 100 mcg tablet mcg 09/11/24 History lorazepam 1 mg tablet mg 09/11/24 History lurasidone 80 mg tablet mg 09/11/24 History metoprolol succinate 50 mg mg PO 09/11/24 History tablet,extended release 24 hr metronidazole 0.75 % topical cream applic topical 09/11/24 History paliperidone 6 mg tablet,extended mg PO 09/11/24 History release 24 hr risperidone 1 mg tablet mg 09/11/24 History topiramate 50 mg tablet mg 09/11/24 History Allergies Allergy/AdvReac Type Severity Reaction Status Date / Time hydrocodone Allergy Unknown Unknown Verified 09/11/24 14:02 meperidine Allergy Unknown Unknown Verified 09/11/24 14:02 morphine Allergy Unknown Unknown Verified 09/11/24 14:02 oxycodone Allergy Unknown Unknown Verified 09/11/24 14:02 Vital Signs Vital Signs - 24 hr 09/11/24 09:35 Temperature 97.4 F L Pulse Rate 66 Respiratory Rate 18 Blood Pressure 112/70 Pulse Oximetry 94 Oxygen Delivery Room Air Exam Narrative: General appearance: obese, awake in no acute distress, slurred speech, following commands, family is by the bedside Skin: Normal color 3+ edema lower extremity bilaterally Head: Normocephalic, nontraumatic Eyes: Clear conjunctiva ENT: Oropharynx normal, ears normal, nose normal , no facial droop seen Neck: Supple, nontender Chest and respiratory: Airway patent, no respiratory distress, no accessory muscle use Heart: Regular rate/rhythm Abdomen: large round, nontender, no organomegaly, diminished bowel sounds Vascular: Normal peripheral pulses, normal capillary refill. Musculoskeletal: limited range of motion of the lower extremities, diffuse pain, no bruises seen Neurologic: Alert and oriented answering questions purposefully with slurred speech, detailing her events from yesterday and this morning. H&P: Results Labs Labs: Short CBC 09/11/24 Range/Units 10:15 WBC 6.4 (4.5-10.0) K/mm3 Hgb 13.9 (12.0-15.0) g/dL Hct 44.5 (37.0-47.0) % Plt Count 165 (150-375) k/mm3 BMP 09/11/24 10:15 Sodium 140 Potassium 4.1 Chloride 101 Carbon Dioxide 31 H BUN 22 H D Creatinine 0.80 Glucose 96 Calcium 9.6 Liver Function 09/11/24 Range/Units 10:15 Total Bilirubin 0.5 (0.2-1.3) mg/dL AST 22 (14-36) U/L ALT 7 (6-35) U/L Alkaline Phosphatase 98 (38-126) U/L Albumin 4.1 (3.5-5.1) g/dL Urine 09/11/24 Range/Units 10:15 Urine Color Yellow (Yellow) Urine Appearance Cloudy H (Clear) Urine pH 7.0 (5.0-9.0) Ur Specific [place] 1.016 (1.001-1.035) Urine Protein Negative (Negative) mg/dL Urine Glucose (UA) Negative (Negative) mg/dL Pulse Oximetry Attestation: I personally reviewed and interpreted this pulse oximetry as follows: ECG ECG completion date: 09/11/24 ECG completion time: 10:34 Prior ECG tracings: not available for review Interpretation: Rate 65 [place] 218 QRSd 124 QT 382 QTc 398 --[place]-- P 54 QRS -31 T -10 SINUS RHYTHM WITH FIRST DEGREE AV BLOCK LEFT AXIS DEVIATION [QRS AXIS < -30] MODERATE VOLTAGE CRITERIA FOR LVH, CONSIDER NORMAL VARIANT [MEETS CRITERIA IN ONE OF: R(aVL), S(V1), R(V5), R(V5/V6)+S(V1)] POSSIBLE SEPTAL MYOCARDIAL INFARCTION , OF INDETERMINATE AGE [30 ms Q WAVE IN V1/V2] No previous ECG available for comparison Imaging cervical spine CT: Radiologist's impression: -no acute fracture -Minimal grade 1 anterolisthesis of C3 over C4. -Mild degenerative change thoracic lumbar spine CT: Radiologist's impression: -No acute abnormality. -Minimal bilateral pleural effusions. CT scan - head: Radiologist's impression: no significant abnormality seen Chest x-ray: Radiologist's impression: Possible minimal central congestive change. left knee x-ray: Radiologist's impression: no acute abnormality seen. Left knee arthroplasty right knee x-ray: Radiologist's impression: no acute abnormality. Right knee arthroplasty Assessment and Plan Assessment and plan (1) Slurring of speech: Code(s): R47.81 - Slurred speech Status: Acute Assessment and Plan: improving, patient participating in HPI -concern for aspiration, guarded diet, mechanical soft diet ordered -will have OT evaluate and treat in the a.m., appreciate recommendations and plan -initiate aspiration precautions -patient following commands, took sips of carbonated beverage by the bedside with no difficulties (2) Weakness: Code(s): R53.1 - Weakness Status: Acute Assessment and Plan: -family by the bedside reports patient currently lives in [facility] which provides daily nursing assistance, for pt family is concerned this may not be the appropriate facility for patient due to her mental illness. -consult care coordination -continue ASA 81 mg daily -check brain MRI in the a.m. -check echo with bubble in the a.m. -consult neurology in the a.m. -check apnea link, r/o sleep apnea -PT/OT eval and treat (3) Schizophrenia: Code(s): F20.9 - Schizophrenia, unspecified Status: Acute Assessment and Plan: - RN attempting to get medication list from facility -denies any auditory or visual hallucinations (4) Morbid obesity: Code(s): E66.01 - Morbid (severe) obesity due to excess calories Status: Acute Assessment and Plan: -encourage diabetic low calorie diet Plan Continue home medications: VTE Prophylaxis: Enoxaparin subQ DIET: NPO until cleared by swallow study Anticipated hospital stay: > 2 days Code Status: full code Hospitalist MIPS Advance Care Plan I have confirmed that the patient's Advanced Care Plan is present, code status is documented, or surrogate decision maker is listed in patient medical record.: Yes Medication Reconciliation I have utilized all available resources to obtain, update and review the patients current medications (includes all prescriptions, OTC, herbals, cannabis, and nutritional supplements).: Yes
[2024-09-11 16:53] LABS: Glucose Point of Care 165 mg/dl (65-105)
--- NOTE | 2024-09-11 18:04 | ADMGEN ---
This patient, Radha S Brother, was admitted to [facility] S[facility] Room 323-02. Patient/family oriented to hospital policies and general routines including ID bracelet, bed and alarms, visiting hours, pain management, procedures, bathroom and other care routines, personal items, smoking policy, room service/diet, and visiting hours. Information on how to activate the Rapid Response Team has been discussed. Patient/Family are encouraged to report perceived risks to care and to ask questions if they do not understand what they are told or what they should do. Family present bedside
--- NOTE | 2024-09-11 18:05 | PC.NURSE ---
Addendum entered by Angella Lyon RN 09/11/24 19:10: Provider Bety updated on home medications and Aj, RN oncoming nurse for patient informed of status of home medications and situation, Addendum entered by Angella Lyon RN 09/11/24 18:35: First fax number provided at 1745 was [phone] Addendum entered by Angella Lyon RN 09/11/24 18:34: 1830- Called [facility] 3rd time, provided a secondary FAX number to try [phone], Regional Commercial Sales Manager states the paper reading no dial tone when sending. Original Note: 1744- This RN called [facility], where PT is from, spoke to legal receptionist and requested home medications and history be faxed to 3 same day surgery center. Facility unable to obtain medical history at this time. PT poor historian and family states the Patient has a 12 year old intellectual capability and is limited in information she is able to provide, admission done with Patient and Brother Gabino as well as sister in law Tosha, however they had to leave before this RN could obtain all PT history. 1814- Fax not received from [facility], called back, facility they are attempting to resend at this time.
[2024-09-11 21:19] LABS: Glucose Point of Care 126 mg/dl (65-105)
[2024-09-11] MEDS: ACETAMINOPHEN 325 MG TABLET 650 MG PO (21:39)
[2024-09-12] VITALS (12 sets, daily range): BP systolic 119–138; BP diastolic 53–62; PULSE 61–77; RESP 18; TEMP 36.3–37.1; O2SAT 92–96
[2024-09-12 06:17] LABS: Basophils Percent Auto 0.4 % (0.2-1.2); Eosinophils Percent Auto 0.2 % (0-4.4); Hematocrit 46.3 % (37.0-47.0); Hemoglobin 13.7 g/dL (12.0-15.0); Immature Granulocyte Absolute 0.02 K/mm3 (0.00-0.031); Immature Granulocyte Percent A 0.4 % (0-0.5); Lymphocytes Absolute Auto 1.77 K/mm3 (0.9-3.2); Lymphocytes Percent Auto 31.6 % (18.3-44.2); Mean Corpuscular HGB Conc 29.6 g/dl (32-36); Mean Corpuscular Hemoglobin 30.8 pg (26-34); Mean Platelet Volume 10.3 fl (7.4-10.4); Monocytes Absolute Auto 0.6 K/mm3 (0.1-0.6); Monocytes Percent Auto 11.4 % (2.6-8.5); Neutrophils Absolute Auto 3.2 K/mm3 (1.3-6.7); Platelet Count Result 157 k/mm3 (150-375); Red Blood Count 4.45 M/mm3 (4.2-5.4); Red Cell Distribution Width 13.6 % (11.5-14.5); White Blood Count 5.6 K/mm3 (4.5-10.0)
[2024-09-12 06:30] LABS: Alanine Aminotransferase 19 U/L (6-35); Albumin Level 3.6 g/dL (3.5-5.1); Alkaline Phosphatase 85 U/L (38-126); Anion Gap 7 mmol/L (4-12); Aspartate Amino Transferase 21 U/L (14-36); Bilirubin,Total 0.5 mg/dL (0.2-1.3); Blood Urea Nitrogen 21 mg/dL (7-17); Calcium 8.9 mg/dL (8.4-10.2); Carbon Dioxide 28 mmol/L (22-30); Chloride 102 mmol/L (98-107); Estimated CRCL calculation 76 ml/min; Estimated Glomerular Filt Rate > 60; Glucose 108 mg/dL (65-110); Potassium 3.8 mmol/L (3.4-5.0); Sodium 137 mmol/L (137-145)
[2024-09-12 07:23] LABS: Platelet Estimate Adequate (Adequate)
[2024-09-12 07:24] LABS: Macrocytosis 1+ (NORMAL); Schistocytes None Seen
[2024-09-12 07:34] LABS: Glucose Point of Care 110 mg/dl (65-105)
[2024-09-12] MEDS: METOPROLOL SUCCINATE EXT REL 50 MG TABCR PO (07:57)
[2024-09-12] MEDS: ASPIRIN 81 MG CHEWABLE TABLET PO (07:58)
[2024-09-12] MEDS: ENOXAPARIN 40 MG/0.4 ML SYRINGE SUB-Q (08:00)
--- NOTE | 2024-09-12 08:00 | ECHO_ITS ---
Patient Info Name: Radha Casper Brother Age: 63 years : 1960 Gender: Female HR: 61 bpm BP: 130 / 62 mmHg Heart Rhythm: Sinus Rhythm Technical Quality: Good Exam Date: 09/12/2024 11:33 AM Exam Location: Echo Lab Patient Status: Outpatient Admit Date: 09/11/2024 Staff Ordering Physician: Edilma Albert APRN Performance Reporter: Milton Parada RDCS Attending Provider: Renetta Arias MD Referring Physician: Bety GARCIA; Exam Type: CA echo doppler w bubble study Study Info Indications - slurred speech, weakness Complete two-dimensional, color flow and Doppler transthoracic echocardiogram is performed with agitated saline. Summary 1. Left ventricular chamber dimension is normal. 2. Left ventricular systolic function is normal, estimated at 60-65%. 3. The left ventricular diastolic function is grade I diastolic dysfunction. 4. E/e' 14 is mildly elevated. 5. Left atrial chamber dimension is mildly enlarged. 6. There is mild aortic valve sclerosis. 7. There is trace mitral valve regurgitation. 8. No pulmonary hypertension, estimated pulmonary arterial systolic pressure is 32 mmHg. Left Ventricle E/e' 14 is mildly elevated. Left ventricular chamber dimension is normal. Left ventricular systolic function is normal, estimated at 60-65%. The left ventricular diastolic function is grade I diastolic dysfunction. Right Ventricle Right ventricular systolic function is normal and with normal TAPSE 2.7 cm. Right ventricular chamber dimension is normal. Left Atria Left atrial chamber dimension is mildly enlarged. Right Atria Right atrial chamber dimension is normal. Atrial Septum Agitated saline injection with and without valsalva maneuver opacified right side cardiac chambers without shunt to left side cardiac chambers. Intact interatrial septum visualized by 2D and agitated saline imaging. Aortic Valve The aortic valve is trileaflet. There is mild aortic valve sclerosis. There is no aortic valve stenosis. There is no aortic valve regurgitation. Pulmonic Valve There is no pulmonic regurgitation. Mitral Valve There is no mitral valve stenosis. There is trace mitral valve regurgitation. Tricuspid Valve There is no tricuspid valve regurgitation. No pulmonary hypertension, estimated pulmonary arterial systolic pressure is 32 mmHg. Pericardium/Pleural There is no pericardial effusion. Inferior Vena Cava Normal inferior vena cava with >50% collapse upon inspiration consistent with normal right atrial pressure, 5 mmHg. Aorta The aortic root size at the sinus of Valsalva is normal. Left Ventricular Outflow Tract Name Value Normal LVOT 2D LVOT Diameter 1.9 cm LVOT Doppler LVOT Peak Gradient 6 mmHg LVOT Mean Gradient 4 mmHg LVOT VTI 28 cm LVOT VTI/AV VTI Ratio 1.0 LVOT Stroke Volume 81 ml LVOT CO 5.2 l/min Mitral Valve Name Value Normal MV Doppler MV Decel Moca 376 cm/s2 MV PHT 65 ms MV Area (PHT) 3.4 cm2 4.0-5.0 MV Diastolic Function MV E Peak Velocity 84 cm/s MV A Peak Velocity 92 cm/s MV E/A 0.9 MV Decel Time 224 ms MV Annular TDI MV E/e' (Septal) 15.1 <=8.0 MV E/e' (Lateral) 13.4 <=8.0 MV E/e' (Average) 14.2 Tricuspid Valve Name Value Normal TV Regurgitation Doppler TR Peak Velocity 260 cm/s TR Peak Gradient 9 mmHg Estimated PAP/RSVP RA Pressure 5 mmHg <=5 PA Systolic Pressure 32 mmHg <36 RV Systolic Pressure 32 mmHg <36 Aortic Valve Name Value Normal AV Doppler AV Peak Velocity 137 cm/s AV Peak Gradient 7 mmHg AV Mean Gradient 4 mmHg AV VTI 27 cm AV Area (Cont Eq VTI) 3.0 cm2 >=3.0 AV Area (Cont Eq Migel) 2.6 cm2 AV Regurgitation 2D LVOT Area 2.8 cm2 Ventricles Name Value Normal LV Dimensions 2D/MM IVS Diastolic Thickness (2D) 1.1 cm 0.6-1.0 LVID Diastole (2D) 5.4 cm 3.8-5.2 LVIW Diastolic Thickness (2D) 1.1 cm 0.6-0.9 LVID Systole (2D) 3.3 cm 2.2-3.5 LVOT Diameter 1.9 cm LV Mass (2D Cubed) 235.09 g 67.00-162.00 Relative Wall Thickness (2D) 0.41 LV Fractional Shortening/Ejection Fraction 2D/MM LV Fractional Shortening (2D) 39 % 27-45 LV EF (2D [place]) 69 % 54-74 LV Diastolic Volume (4C MOD) 76 ml LV EF (4C MOD) 68 % LV Diastolic Volume (2C MOD) 82 ml LV EF (2C MOD) 76 % LV Diastolic Volume (BP MOD) 79 ml 46-106 LV Systolic Volume (BP MOD) 22 ml 14-42 LV EF (BP MOD) 71 % 54-74 LV Diastolic Length (4C) 7.6 cm LV Systolic Length (4C) 6.5 cm LV Stroke Volume (4C MOD) 51 ml Atria Name Value Normal LA Dimensions LA Volume (4C A-L) 19 ml LA Volume (BP A-L) 23 ml RA Dimensions RA Area (4C) 6.1 cm2 <=18.0 Report Signatures
--- NOTE | 2024-09-12 08:00 | PC.NURSE ---
Addendum entered by Angella Lyon RN 09/12/24 09:34: 0908- Attempted to call both numbers in chart for Patient contacts, both phones go to , left 2nd for Sister in Law in regards to MRI. Updated Provider- Nafisa Guthrie NP at 0930 Original Note: 0715- This RN called Patient's Brother and Sister in law, numbers in the chart, no answer, left in regards to MRI screening form clarification
--- NOTE | 2024-09-12 08:36 | P.PNIM_ITS ---
Progress Note: A&P Assessment and Plan (1) Slurring of speech: Code(s): R47.81 - Slurred speech Status: Acute Assessment and Plan: improving, patient participating in [facility] Neurology consulted pending recommendations -concern for aspiration, guarded diet, mechanical soft diet ordered -will have OT evaluate and treat in the a.m., appreciate recommendations and plan -initiate aspiration precautions -regular diet -speech therapy MRI brain no acute findings Current indications for placement with PT, OT, speech therapy needed (2) Weakness: Code(s): R53.1 - Weakness Status: Acute Assessment and Plan: -family by the bedside reports patient currently lives in [facility] which provides daily nursing assistance, for pt family is concerned this may not be the appropriate facility for patient due to her mental illness. -consult care coordination -continue ASA 81 mg daily - brain MRI no acute findings -check echo with bubble EF 60-65%, grade I diastolic dysfunction -consult neurology in the a.m. -check apnea link, r/o sleep apnea -PT/OT eval and treat will need skilled therapy (3) Schizophrenia: Code(s): F20.9 - Schizophrenia, unspecified Status: Acute Assessment and Plan: -denies any auditory or visual hallucinations Restart home meds (4) Morbid obesity: Code(s): E66.01 - Morbid (severe) obesity due to excess calories Status: Acute Assessment and Plan: -encourage diabetic low calorie diet Plan Continue home medications: VTE Prophylaxis: Enoxaparin subQ DIET: NPO until cleared by swallow study Anticipated hospital stay: > 2 days Code Status: full code Family updated on plan Time Spent With Patient Time with patient: Greater than 35 minutes Subjective Date/time seen: 09/12/24 08:36 Interval history: 63-year-old female with PMHx: Of schizophrenia, on injections, dyslipidemia, HTN, was brought into the emergency room for further evaluation of complaint of ongoing slurred speech. CVA versus new psychotropic medications. Neurology consulted pending recs Patient seen for is following speech, speech therapist states that there is no new issues with her swallowing however the patient does not have any up teeth, per the patient she she is able to eat meats and salads without difficulty swallowing. Regular diet ordered. Echocardiogram shows EF of 60 65%, grade I diastolic dysfunction, brain MRI is unremarkable, UA pending, patient's only symptom is slurred speech unclear cause at this time Review of Systems Review of Systems: All systems reviewed & are unremarkable except as noted in HPI and below Constitutional: Constitutional: Reports no additional constitutional complaints Eyes: Eyes: Reports no additional eye complaints ENT: Reports as per HPI Cardiovascular: Cardiovascular: Reports no additional cardiovascular complaints Respiratory: Respiratory: Reports no additional respiratory complaints Gastrointestinal: Gastrointestinal: Reports no additional gastrointestinal complaints Genitourinary: Genitourinary: Reports no additional female genitourinary complaints Musculoskeletal: Musculoskeletal: Reports as per HPI Integumentary/Breasts: Skin/Breast: Reports as per HPI Neurologic: Reports as per HPI and Reports Abnormal speech present Psychiatric: Psychiatric: Reports no additional psychiatric complaints Exam Narrative: General appearance: obese, awake in no acute distress, slurred speech, following commands, family is by the bedside Skin: Normal color 3+ edema lower extremity bilaterally Head: Normocephalic, nontraumatic Eyes: Clear conjunctiva ENT: Oropharynx normal, ears normal, nose normal , no facial droop seen Neck: Supple, nontender Chest and respiratory: Airway patent, no respiratory distress, no accessory muscle use Heart: Regular rate/rhythm Abdomen: large round, nontender, no organomegaly, diminished bowel sounds Vascular: Normal peripheral pulses, normal capillary refill. Musculoskeletal: limited range of motion of the lower extremities, diffuse pain, no bruises seen Neurologic: Alert and oriented answering questions purposefully with slurred speech Const: General: comfortable and no acute distress HENMT: Face/Nose/Sinus: Normal nares present Mouth: Yes moist mucous membranes Eyes: General: appearance normal, both eyes and all related structures Pupils: Equal, round and reactive pupils present Neck: Neck: supple Resp: Effort & Inspection: normal respiratory effort Auscultation: clear to auscultation bilaterally Cardio: Rate: regular rate Rhythm: regular rhythm GI: Auscultation: normal bowel sounds Skin: General skin exam: normal color Neuro: Other: Slurred speech Extrem: General: normal to inspection Psych: Mental Status: mental status grossly normal Objective Data Vital Signs Vital Signs: Vital Signs - 24 hr 09/11/24 09:35 09/11/24 11:41 09/11/24 12:01 Temperature 97.4 F L Pulse Rate 66 62 63 Respiratory Rate 18 13 18 Blood Pressure 112/70 161/91 H 135/93 H Pulse Oximetry 94 95 94 Oxygen Delivery Room Air Fraction of Inspired Oxygen 09/11/24 12:31 09/11/24 13:02 09/11/24 14:31 Temperature Pulse Rate 64 63 63 Respiratory Rate 18 16 15 Blood Pressure 131/90 132/80 119/77 Pulse Oximetry 98 94 95 Oxygen Delivery Fraction of Inspired Oxygen 09/11/24 15:01 09/11/24 16:44 09/11/24 16:00 Temperature 97.3 F L Pulse Rate 64 61 Respiratory Rate 14 16 Blood Pressure 108/91 H 128/81 Pulse Oximetry 96 96 Oxygen Delivery Room Air Fraction of Inspired Oxygen 09/11/24 20:00 09/11/24 20:00 09/12/24 03:35 Temperature 98.1 F Pulse Rate 64 Respiratory Rate 20 Blood Pressure 120/70 Pulse Oximetry 92 92 Oxygen Delivery Room Air Room Air Fraction of Inspired Oxygen 09/12/24 04:00 09/11/24 20:00 09/12/24 00:00 Temperature 97.7 F Pulse Rate 65 70 62 Respiratory Rate 18 Blood Pressure 130/62 Pulse Oximetry 92 Oxygen Delivery Fraction of Inspired Oxygen 09/12/24 04:00 09/12/24 07:57 09/12/24 08:12 Temperature Pulse Rate 61 68 Respiratory Rate Blood Pressure Pulse Oximetry 92 Oxygen Delivery Room Air Fraction of Inspired Oxygen 21 09/12/24 08:00 09/12/24 08:03 Temperature 97.3 F L Pulse Rate 64 65 Respiratory Rate 18 Blood Pressure 138/59 L Pulse Oximetry 96 Oxygen Delivery Fraction of Inspired Oxygen Intake/Output Intake/Output: Intake & Output 09/09/24 09/10/24 09/11/24 09/12/24 23:59 23:59 23:59 23:59 Intake Total 1220 200 Output Total 450 Balance 1220 -250 Meds/Results Medications: Active Medications Generic Name Dose Route Start Last Admin Trade Name Freq PRN Reason Stop Dose Admin Acetaminophen 650 mg 09/11/24 14:41 09/11/24 21:39 Acetaminophen 325 Mg Tablet PO 650 mg Q4H PRN Administration Mild Pain (1-3) or Fever Aspirin 81 mg 09/12/24 08:00 09/12/24 07:58 Aspirin 81 Mg Chewable Tablet PO 81 mg DAILY@0800 RENATA Administration Enoxaparin Sodium 40 mg 09/12/24 09:00 09/12/24 08:00 Enoxaparin 40 Mg/0.4 Ml Syringe SUB-Q 40 mg DAILY RENATA Administration Metoprolol Succinate 50 mg 09/12/24 09:00 09/12/24 07:57 Metoprolol Succinate Ext Rel 50 Mg Tabcr PO 50 mg DAILY RENATA Administration Perflutren Lipid Microsphere 0 ml 09/12/24 08:00 Perflutren Lipid Microspheres 1.5 Ml Vial Diluted To 10 Ml Total Volume IV PUSH 09/14/24 18:51 ONCE PRN adequate visualization Protocol Radiology Results: ITS Impressions Cervical Spine CT 09/11/24 11:26 Impression: No acute fracture. Minimal grade 1 anterolisthesis of C3 over C4. Mild degenerative change, as above. Head CT 09/11/24 11:26 Impression: No significant abnormality seen. Thoracic/Lumbar Spine CT 09/11/24 11:27 Impression: No acute abnormality. Minimal bilateral pleural effusions. Chest X-Ray 09/11/24 11:39 Impression: Possible minimal central congestive change. Knee X-Ray 09/11/24 11:39 Impression: No acute abnormality. Right knee arthroplasty. Labs Labs: Laboratory Results - last 24 hr 09/11/24 09/11/24 09/11/24 09:41 10:15 13:03 WBC 6.4 RBC 4.43 Hgb 13.9 Hct 44.5 MCV 100.5 H MCH 31.4 MCHC 31.2 L RDW 13.5 Plt Count 165 MPV 10.9 H Immature Gran % (Auto) 0.3 Neut % (Auto) 61.0 Lymph % (Auto) 28.0 [place] % (Auto) 10.4 H Eos % (Auto) 0.0 Baso % (Auto) 0.3 Lymph # (Auto) 1.78 [place] # (Auto) 0.7 H Eos # (Auto) 0.0 Baso # (Auto) 0.0 Abs Immat Gran (auto) 0.02 Absolute Neuts (auto) 3.9 Absolute Nucleated RBC 0.000 Nucleated RBC % 0.0 Platelet Estimate Macrocytosis Schistocytes Sodium 140 Potassium 4.1 Chloride 101 Carbon Dioxide 31 H Anion Gap 8 BUN 22 H D Creatinine 0.80 Estim Creat Clear Calc Not Reportable Estimated GFR > 60 Glucose 96 POC Capillary Glucose 107 H Lactic Acid 1.8 Calcium 9.6 Total Bilirubin 0.5 AST 22 ALT 7 Alkaline Phosphatase 98 C-Reactive Protein 0.7 Total Protein 7.0 Albumin 4.1 Urine Color Yellow Urine Appearance Cloudy H Urine pH 7.0 Ur Specific [place] 1.016 Urine Protein Negative Urine Glucose (UA) Negative Urine Ketones Negative Ur Blood (Man) Negative Urine Nitrate Negative Urine Bilirubin Negative Urine Urobilinogen 1.0 Add Ur Microanalysis Reviewed Leukocyte Esterase Rfl Negative Urine RBC 3-5 H Urine WBC 0-5 Ur Squamous Epith Cells None seen Amorphous Sediment Few H Urine Bacteria None seen Urine Casts 0-2 09/11/24 09/11/24 09/12/24 16:51 20:43 06:06 WBC 5.6 RBC 4.45 Hgb 13.7 Hct 46.3 MCV 104.0 H MCH 30.8 MCHC 29.6 L RDW 13.6 Plt Count 157 MPV 10.3 Immature Gran % (Auto) 0.4 Neut % (Auto) 56.0 Lymph % (Auto) 31.6 [place] % (Auto) 11.4 H Eos % (Auto) 0.2 Baso % (Auto) 0.4 Lymph # (Auto) 1.77 [place] # (Auto) 0.6 Eos # (Auto) 0.0 Baso # (Auto) 0.0 Abs Immat Gran (auto) 0.02 Absolute Neuts (auto) 3.2 Absolute Nucleated RBC 0.000 Nucleated RBC % 0.0 Platelet Estimate Adequate Macrocytosis 1+ Schistocytes None seen Sodium 137 Potassium 3.8 Chloride 102 Carbon Dioxide 28 Anion Gap 7 BUN 21 H Creatinine 0.80 Estim Creat Clear Calc 76 Estimated GFR > 60 Glucose 108 POC Capillary Glucose 165 H 126 H Lactic Acid Calcium 8.9 Total Bilirubin 0.5 AST 21 ALT 19 Alkaline Phosphatase 85 C-Reactive Protein Total Protein 7.0 Albumin 3.6 Urine Color Urine Appearance Urine pH Ur Specific [place] Urine Protein Urine Glucose (UA) Urine Ketones Ur Blood (Man) Urine Nitrate Urine Bilirubin Urine Urobilinogen Add Ur Microanalysis Leukocyte Esterase Rfl Urine RBC Urine WBC Ur Squamous Epith Cells Amorphous Sediment Urine Bacteria Urine Casts 09/12/24 07:24 WBC RBC Hgb Hct MCV MCH MCHC RDW Plt Count MPV Immature Gran % (Auto) Neut % (Auto) Lymph % (Auto) [place] % (Auto) Eos % (Auto) Baso % (Auto) Lymph # (Auto) [place] # (Auto) Eos # (Auto) Baso # (Auto) Abs Immat Gran (auto) Absolute Neuts (auto) Absolute Nucleated RBC Nucleated RBC % Platelet Estimate Macrocytosis Schistocytes Sodium Potassium Chloride Carbon Dioxide Anion Gap BUN Creatinine Estim Creat Clear Calc Estimated GFR Glucose POC Capillary Glucose 110 H Lactic Acid Calcium Total Bilirubin AST ALT Alkaline Phosphatase C-Reactive Protein Total Protein Albumin Urine Color Urine Appearance Urine pH Ur Specific [place] Urine Protein Urine Glucose (UA) Urine Ketones Ur Blood (Man) Urine Nitrate Urine Bilirubin Urine Urobilinogen Add Ur Microanalysis Leukocyte Esterase Rfl Urine RBC Urine WBC Ur Squamous Epith Cells Amorphous Sediment Urine Bacteria Urine Casts Imaging Radiologist's impression: MRI of the brain Clinical History: Slurred speech Technique: Axial and sagittal T1-weighted images were acquired. These were followed by axial T2-weighted, diffusion weighted, gradient, and FLAIR images. Following intravenous administration of 20 cc MultiHance gadolinium, T1-weighted fat-sat imaging was performed in the axial and coronal planes. Findings: No abnormal signal seen in the brain parenchyma. No acute infarct, i ntracranial hemorrhage, or mass lesion. Ventricles and subarachnoid spaces are unremarkable. Orbits are unremarkable. Paranasal sinuses and mastoid air cells are clear. Major intracranial flow voids are intact. Sagittal midline structures are intact. No abnormal postcontrast enhancement. IMPRESSION: Unremarkable exam. Right Knee Technique: AP, lateral, and oblique views were obtained. Clinical History: Weakness Findings: No fracture or dislocation is seen. Right knee arthroplasty in place. Soft tissues are unremarkable. No joint effusion is seen. Impression: No acute abnormality. Right knee arthroplasty Left Knee Technique: AP and lateral views were obtained. Clinical History: This Findings: No fracture or dislocation is seen. Left knee arthroplasty in place. Soft tissues are unremarkable. No joint effusion is seen. Impression: No acute abnormality seen. Left knee arthroplasty.. PA and lateral views of the chest: Comparison: None Findings: Possible minimal central congestive change, without evidence of focal consolidation or pleural effusion. Cardiomediastinal silhouette is within normal limits. Bones and soft tissues are unremarkable. Impression: Possible minimal central congestive change. CT scan of the thoracolumbar spine CLINICAL HISTORY: Status post TECHNIQUE: Axial noncontrast imaging of the thoracolumbar spine was performed. Sagittal and coronal reformatted images were constructed. Dose reduction technique was used on this scan by utilizing automated exposure control and iterative reconstruction technique. The dose-length product (DLP) was 1836.20 mGy-cm. FINDINGS: There is no fracture or subluxation of the thoracic spine. Vertebral bodies maintain normal height and alignment. Intervertebral disc spaces are relatively well preserved throughout. No significant disc bulge or herniation seen at any thoracic level. No spinal canal stenosis or cord compression identified in the thoracic spine. Neural foramina are preserved throughout the thoracic spine. There is no fracture or subluxation lumbar spine. Vertebral bodies maintain normal height and alignment. Intervertebral disc spaces are relatively well preserved throughout. No significant disc bulge or herniation seen at any lumbar level. No spinal canal stenosis or neural foraminal narrowing evident. Paravertebral soft tissues are unremarkable. Minimal pleural effusions are present. Impression: No acute abnormality. Minimal bilateral pleural effusions. Non-contrast Head CT History: Slurred speech Technique: Axial non-contrast imaging of the brain was performed. Dose reduction technique was used on this scan by utilizing automated exposure control and iterative reconstruction technique. The dose-length product (DLP) was 605.33 mGy-cm. Findings: There is no evidence of intracranial hemorrhage, mass lesion, or acute infarct. Brain parenchyma appears normal. The ventricles and subarachnoid spaces are normal in size. The calvarium appears normal. The visualized paranasal sinuses and mastoid air cells are clear. Impression: No significant abnormality seen. Quality VTE Prophylaxis VTE prophylaxis: pharmacologic ordered Hospitalist MIPS Advance Care Plan I have confirmed that the patient's Advanced Care Plan is present, code status is documented, or surrogate decision maker is listed in patient medical record.: Yes Medication Reconciliation I have utilized all available resources to obtain, update and review the patients current medications (includes all prescriptions, OTC, herbals, cannabis, and nutritional supplements).: Yes
--- NOTE | 2024-09-12 09:23 | PCSTNOTE ---
Please refer to the Bedside Swallow Evaluation in the EMR. Please note, silent aspiration cannot be ruled out at bedside. Consider Minced and Moist, Level 5, at this time, may advance to Soft and Bite-Size, Level 6, as tolerated.
[2024-09-12 11:35] LABS: Glucose Point of Care 122 mg/dl (65-105)
[2024-09-12 16:37] LABS: Glucose Point of Care 119 mg/dl (65-105)
--- NOTE | 2024-09-12 17:35 | WPDNEURCNPN ---
Assessment and Plan Assessment and plan (1) Slurring of speech: Code(s): R47.81 - Slurred speech Status: Acute Assessment and Plan: this may result from medication side effect. Remote possibility may include myasthenia gravis however I doubt it since I do not see any other features of it. Nevertheless antibody testing may be recommended. MRI of the brain was performed did not show any brainstem or otherwise pathology. I have reviewed the films and these did not show any significant abnormalities. (2) Schizophrenia: Code(s): F20.9 - Schizophrenia, unspecified Status: Acute (3) Morbid obesity: Code(s): E66.01 - Morbid (severe) obesity due to excess calories Status: Acute Plan I would suggest to continue to observe and if she has any further episodes of dysarthria or any other neurologic problem I shall be glad to re-evaluate her. Consult date: 09/12/24 HPI: Radha Casper Brother is a 63 year old female with history of for slurring of the speech. She is resident of [facility] and carries diagnosis of chronic psychiatric problems. Patient states that her speech has now improved and she thinks that her speech may have been due to some medication side effect. She denies any difficulty with swallowing. No weakness in upper or lower limbs. She uses a walker to get around however that is a longstanding issue. No headache or diplopia or vertigo. No history of prior stroke or seizures. Review of Systems Review of Systems: All systems reviewed & are unremarkable except as noted in HPI and below PMFSH Past Medical History Medical History History of hyperlipidemia History of hypertension History of hypothyroidism Social History Social History Smoking status: Never smoker Alcohol intake: never Substance use: never Substance use type: does not use Do You Feel Safe in your Home?: Yes Lack of Transportation: No Lack of Food: Never True Current Housing: I Have Housing Concerned About Future Housing: No Difficulty Paying Gas/Electric Bills: No Difficulty Paying for Meds: No Currently Unemployed: No Education: Grade School Difficulty w/ Childcare or Family Care: No Gender identity (if verbalized by the patient): Female Spiritual care concerns: No Meds Home Medications and Allergies Home Medications Medication Instructions Recorded Confirmed Type atorvastatin 20 mg tablet 20 mg PO HS 03/21/21 09/11/24 History benztropine 0.5 mg tablet 0.5 mg PO HS 09/11/24 09/11/24 History carbidopa 25 mg-levodopa 100 mg 25 - 100 tablet PO TID 09/11/24 09/11/24 History tablet cholecalciferol (vitamin D3) 50 50 mcg PO DAILY 09/11/24 09/11/24 History mcg (2,000 unit) tablet divalproex 500 mg tablet,extended 500 mg PO BID 09/11/24 09/11/24 History release 24 hr dulaglutide 0.75 mg/0.5 mL 0.75 mg subcut WEEKLY 09/11/24 09/11/24 History subcutaneous pen injector ([facility]) duloxetine 30 mg capsule,delayed 30 mg PO DAILY 09/11/24 09/11/24 History release famotidine 20 mg tablet 20 mg PO DAILY 09/11/24 09/11/24 History levothyroxine 100 mcg tablet 100 mcg PO DAILY 09/11/24 09/11/24 History lorazepam 1 mg tablet 1 mg PO TID 09/11/24 09/11/24 History metoprolol succinate 50 mg 50 mg PO DAILY 09/11/24 09/11/24 History tablet,extended release 24 hr metronidazole 0.75 % topical cream 1 applic topical DAILY 09/11/24 09/11/24 History paliperidone palmitate 234 mg/1.5 234 mg IM Q30D 09/11/24 09/11/24 History mL intramuscular syringe ([facility]ve[facility] Sust[facility]) topiramate 50 mg tablet 50 mg PO BID 09/11/24 09/11/24 History Allergies Allergy/AdvReac Type Severity Reaction Status Date / Time hydrocodone Allergy Unknown Unknown Verified 09/11/24 14:02 meperidine Allergy Unknown Unknown Verified 09/11/24 14:02 morphine Allergy Unknown Unknown Verified 09/11/24 14:02 oxycodone Allergy Unknown Unknown Verified 09/11/24 14:02 Vital Signs Vital Signs - 24 hr 09/11/24 20:00 09/11/24 20:00 09/12/24 03:35 Temperature 98.1 F Pulse Rate 64 Respiratory Rate 20 Blood Pressure 120/70 Pulse Oximetry 92 92 Oxygen Delivery Room Air Room Air Fraction of Inspired Oxygen 09/12/24 04:00 09/11/24 20:00 09/12/24 00:00 Temperature 97.7 F Pulse Rate 65 70 62 Respiratory Rate 18 Blood Pressure 130/62 Pulse Oximetry 92 Oxygen Delivery Fraction of Inspired Oxygen 09/12/24 04:00 09/12/24 07:57 09/12/24 08:12 Temperature Pulse Rate 61 68 Respiratory Rate Blood Pressure Pulse Oximetry 92 Oxygen Delivery Room Air Fraction of Inspired Oxygen 21 09/12/24 08:00 09/12/24 08:03 09/12/24 07:54 Temperature 97.3 F L Pulse Rate 64 65 65 Respiratory Rate 18 18 Blood Pressure 138/59 L Pulse Oximetry 96 92 Oxygen Delivery Room Air Fraction of Inspired Oxygen 09/12/24 11:51 09/12/24 11:38 09/12/24 12:00 Temperature Pulse Rate 70 Respiratory Rate Blood Pressure Pulse Oximetry Oxygen Delivery Room Air Room Air Fraction of Inspired Oxygen 09/12/24 16:00 Temperature Pulse Rate 70 Respiratory Rate Blood Pressure Pulse Oximetry Oxygen Delivery Fraction of Inspired Oxygen Exam Narrative: Fully conscious alert, oriented to self place and person, no aphasia or dysarthria. Examination head and neck show no evidence of external trauma. No nuchal rigidity. No carotid bruit. Cranial nerves on individual testing show pupils were equal reacting to light. Visual [place] by confrontation were normal. There is no facial asymmetry. Facial sensation was normal. Tongue was midline. Other cranial nerves within normal limits. Motor system normal power and tone in both upper lower limbs. Deep tendon reflexes did not show any asymmetry. Plantars were downgoing. Sensory exam grossly intact. No ataxia nystagmus or intention tremors were noted. Results Labs 09/12/24 06:06 09/12/24 06:06 Labs: Short CBC 09/12/24 Range/Units 06:06 WBC 5.6 (4.5-10.0) K/mm3 Hgb 13.7 (12.0-15.0) g/dL Hct 46.3 (37.0-47.0) % Plt Count 157 (150-375) k/mm3 [facility] 09/12/24 06:06 Sodium 137 Potassium 3.8 Chloride 102 Carbon Dioxide 28 BUN 21 H Creatinine 0.80 Glucose 108 Calcium 8.9 Liver Function 09/12/24 Range/Units 06:06 Total Bilirubin 0.5 (0.2-1.3) mg/dL AST 21 (14-36) U/L ALT 19 (6-35) U/L Alkaline Phosphatase 85 (38-126) U/L Albumin 3.6 (3.5-5.1) g/dL Imaging Attestation: I personally reviewed and interpreted this imaging study as follows: ( MRI of the brain) My impression: normal study Radiologist's impression: same
[2024-09-12 19:14] LABS: Add Urine Microscopic? YES; Appearance Urine Cloudy (Clear); Bacteria Urine 2+ /hpf; Bilirubin Urine Negative (Negative); Blood Urine Negative (Negative); Color Urine Yellow (Yellow); Glucose Urine UA Negative (Negative); Ketones Urine Negative (Negative); Leukocyte Esterase Ur Negative LEU/UL (Negative); Nitrate Urine Negative (Negative); Non Pathogenic Casts 0-2; Protein Urine Negative (Negative); RBC Urine 0-2 /hpf (0-2); Specific Grav Ur 1.016 (1.001-1.035); Squamous Epithelial Cell Urine None Seen /hpf (Few); Urobilinogen Urine 0.2 mg/dL (<2.0); WBC Urine 0-5 /hpf (0-3)
[2024-09-12 20:17] LABS: Glucose Point of Care 152 mg/dl (65-105)
[2024-09-12] MEDS: DIVALPROEX SODIUM ER 500 MG TAB.24H PO (21:38)
[2024-09-12] MEDS: BENZTROPINE MESYLATE 0.5 MG TABLET PO (21:38)
[2024-09-12] MEDS: ATORVASTATIN 20 MG TABLET PO (21:38)
[2024-09-12 21:47] LABS: Vitamin D 25 Hydroxy 40.3 ng/mL
[2024-09-12 21:49] LABS: Folic Acid 3.5 ng/mL (2.76->20)
--- NOTE | 2024-09-12 22:05 | PC.NURSE ---
Spoke with Dr. Hernandez at this time r/t patient requesting to get home dose of lorazepam to help with anxiety and sleep. New order received for 1x order of home dose of lorazepam.
[2024-09-12] MEDS: LORazepam (*CRX) 1 MG TABLET PO (22:45)
[2024-09-12] MEDS: ACETAMINOPHEN 325 MG TABLET 650 MG PO (22:45)
[2024-09-13] VITALS (9 sets, daily range): BP systolic 109–131; BP diastolic 59–82; PULSE 65–76; RESP 16–20; TEMP 35.9–36.6; O2SAT 90–96
[2024-09-13] MEDS: LEVOTHYROXINE SODIUM 100 MCG TABLET PO (05:25)
[2024-09-13 06:11] LABS: Basophils Percent Auto 0.3 % (0.2-1.2); Eosinophils Percent Auto 0.3 % (0-4.4); Hematocrit 41.5 % (37.0-47.0); Hemoglobin 13.2 g/dL (12.0-15.0); Immature Granulocyte Absolute 0.04 K/mm3 (0.00-0.031); Immature Granulocyte Percent A 0.7 % (0-0.5); Lymphocytes Absolute Auto 2.16 K/mm3 (0.9-3.2); Lymphocytes Percent Auto 36.2 % (18.3-44.2); Mean Corpuscular HGB Conc 31.8 g/dl (32-36); Mean Corpuscular Hemoglobin 31.4 pg (26-34); Mean Corpuscular Volume 98.8 fl (80-100); Mean Platelet Volume 10.6 fl (7.4-10.4); Monocytes Absolute Auto 0.7 K/mm3 (0.1-0.6); Monocytes Percent Auto 11.6 % (2.6-8.5); Neutrophils Percent Auto 50.9 % (45.5-73.1); Platelet Count Result 167 k/mm3 (150-375); Red Cell Distribution Width 13.4 % (11.5-14.5)
[2024-09-13 06:36] LABS: Alanine Aminotransferase 19 U/L (6-35); Albumin Level 3.5 g/dL (3.5-5.1); Alkaline Phosphatase 81 U/L (38-126); Anion Gap 7 mmol/L (4-12); Aspartate Amino Transferase 21 U/L (14-36); Bilirubin,Total 0.6 mg/dL (0.2-1.3); Blood Urea Nitrogen 19 mg/dL (7-17); Carbon Dioxide 26 mmol/L (22-30); Chloride 101 mmol/L (98-107); Estimated CRCL calculation 102 ml/min; Estimated Glomerular Filt Rate > 60; Glucose 91 mg/dL (65-110); Sodium 134 mmol/L (137-145)
[2024-09-13 08:18] LABS: Glucose Point of Care 104 mg/dl (65-105)
--- NOTE | 2024-09-13 09:03 | P.PNIM_ITS ---
Progress Note: A&P Assessment and Plan (1) Slurring of speech: Code(s): R47.81 - Slurred speech Status: Acute Assessment and Plan: improving, patient participating in [facility] Neurology consulted pending recommendations -concern for aspiration, guarded diet, mechanical soft diet ordered -will have OT evaluate and treat in the a.m., appreciate recommendations and plan -initiate aspiration precautions -regular diet -speech therapy MRI brain no acute findings Current indications for placement with PT, OT, speech therapy needed (2) Weakness: Code(s): R53.1 - Weakness Status: Acute Assessment and Plan: -family by the bedside reports patient currently lives in [facility] which provides daily nursing assistance, for pt family is concerned this may not be the appropriate facility for patient due to her mental illness. -consult care coordination -continue ASA 81 mg daily - brain MRI no acute findings -check echo with bubble EF 60-65%, grade I diastolic dysfunction -consult neurology in the a.m. -check apnea link, r/o sleep apnea -PT/OT eval and treat will need skilled therapy (3) Schizophrenia: Code(s): F20.9 - Schizophrenia, unspecified Status: Acute Assessment and Plan: -denies any auditory or visual hallucinations Restart home meds (4) Morbid obesity: Code(s): E66.01 - Morbid (severe) obesity due to excess calories Status: Acute Assessment and Plan: -encourage diabetic low calorie diet Plan Continue home medications: VTE Prophylaxis: Enoxaparin subQ DIET: NPO until cleared by swallow study Anticipated hospital stay: > 2 days Code Status: full code Family updated on plan, plan for discharge to skilled Time Spent With Patient Time with patient: Greater than 35 minutes Subjective Date/time seen: 09/13/24 09:03 Interval history: 63-year-old female with PMHx: Of schizophrenia, on injections, dyslipidemia, HTN, was brought into the emergency room for further evaluation of complaint of ongoing slurred speech. CVA versus new psychotropic medications. Neurology consulted pending recs Patient seen for is following speech, speech therapist states that there is no new issues with her swallowing however the patient does not have any up teeth, per the patient she she is able to eat meats and salads without difficulty swallowing. Regular diet ordered. Echocardiogram shows EF of 60 65%, grade I diastolic dysfunction, brain MRI is unremarkable, UA pending, patient's only symptom is slurred speech unclear cause at this time UA negative, no found medical reason found for patient slurred speech at this time, recommend working with PT, OT and speech at skilled facility. Slurred speech has resolved. Case management looking for accepting facility. Patient is medically ready for discharge. Review of Systems Review of Systems: All systems reviewed & are unremarkable except as noted in HPI and below Constitutional: Constitutional: Reports no additional constitutional complaints Eyes: Eyes: Reports no additional eye complaints ENT: Reports as per HPI Cardiovascular: Cardiovascular: Reports no additional cardiovascular complaints Respiratory: Respiratory: Reports no additional respiratory complaints Gastrointestinal: Gastrointestinal: Reports no additional gastrointestinal complaints Genitourinary: Genitourinary: Reports no additional female genitourinary complaints Musculoskeletal: Musculoskeletal: Reports as per HPI Integumentary/Breasts: Skin/Breast: Reports as per HPI Neurologic: Reports as per HPI and Reports Abnormal speech present Psychiatric: Psychiatric: Reports no additional psychiatric complaints Exam Narrative: General appearance: obese, awake in no acute distress, slurred speech, following commands, family is by the bedside Skin: Normal color 3+ edema lower extremity bilaterally Head: Normocephalic, nontraumatic Eyes: Clear conjunctiva ENT: Oropharynx normal, ears normal, nose normal , no facial droop seen Neck: Supple, nontender Chest and respiratory: Airway patent, no respiratory distress, no accessory muscle use Heart: Regular rate/rhythm Abdomen: large round, nontender, no organomegaly, diminished bowel sounds Vascular: Normal peripheral pulses, normal capillary refill. Musculoskeletal: limited range of motion of the lower extremities, diffuse pain, no bruises seen Neurologic: Alert and oriented answering questions purposefully with slurred speech Const: General: comfortable and no acute distress HENMT: Face/Nose/Sinus: Normal nares present Mouth: Yes moist mucous membranes Eyes: General: appearance normal, both eyes and all related structures Pupils: Equal, round and reactive pupils present Neck: Neck: supple Resp: Effort & Inspection: normal respiratory effort Auscultation: clear to auscultation bilaterally Cardio: Rate: regular rate Rhythm: regular rhythm GI: Auscultation: normal bowel sounds Skin: General skin exam: normal color Neuro: Cranial nerves: Yes Equal, round and reactive pupils present Speech: Abnormal speech present Other: Speech at baseline Extrem: General: normal to inspection Psych: Mental Status: mental status grossly normal Objective Data Vital Signs Vital Signs: Vital Signs - 24 hr 09/12/24 11:51 09/12/24 11:38 09/12/24 12:00 Temperature Pulse Rate 70 Respiratory Rate Blood Pressure Pulse Oximetry Oxygen Delivery Room Air Room Air 09/12/24 16:00 09/12/24 16:00 09/12/24 20:40 Temperature 97.8 F 98.7 F Pulse Rate 70 68 70 Respiratory Rate 18 18 Blood Pressure 134/62 119/53 L Pulse Oximetry 96 92 Oxygen Delivery 09/12/24 20:00 09/13/24 00:30 09/12/24 20:00 Temperature 97.8 F Pulse Rate 66 77 Respiratory Rate 20 Blood Pressure 126/68 Pulse Oximetry 90 Oxygen Delivery Room Air 09/13/24 00:00 09/13/24 04:00 09/13/24 05:10 Temperature 97.2 F L Pulse Rate 66 67 66 Respiratory Rate 16 Blood Pressure 131/69 Pulse Oximetry 92 Oxygen Delivery 09/13/24 08:00 09/13/24 08:42 09/13/24 08:00 Temperature 97.5 F L Pulse Rate 73 Respiratory Rate 18 Blood Pressure 130/82 Pulse Oximetry 93 96 Oxygen Delivery Room Air Room Air Intake/Output Intake/Output: Intake & Output 09/10/24 09/11/24 09/12/24 09/13/24 23:59 23:59 23:59 23:59 Intake Total 1220 1506 612 Output Total 1950 550 Balance 1220 -444 62 Meds/Results Medications: Active Medications Generic Name Dose Route Start Last Admin Trade Name Freq PRN Reason Stop Dose Admin Acetaminophen 650 mg 09/11/24 14:41 09/12/24 22:45 Acetaminophen 325 Mg Tablet PO 650 mg Q4H PRN Administration Mild Pain (1-3) or Fever Aspirin 81 mg 09/12/24 08:00 09/12/24 07:58 Aspirin 81 Mg Chewable Tablet PO 81 mg DAILY@0800 RENATA Administration Atorvastatin Calcium 20 mg 09/12/24 21:00 09/12/24 21:38 Atorvastatin 20 Mg Tablet PO 20 mg HS RENATA Administration Benztropine Mesylate 0.5 mg 09/12/24 21:00 09/12/24 21:38 Benztropine Mesylate 0.5 Mg Tablet PO 0.5 mg HS RENATA Administration Carbidopa/Levodopa 1 tablet 09/13/24 09:00 Carbidopa/Levodopa 25/100 Mg Tablet PO TID [facility] Divalproex Sodium 500 mg 09/12/24 21:00 09/12/24 21:38 Divalproex Sodium Er 500 Mg Tab.24h PO 500 mg Q12HR RENATA Administration Duloxetine HCl 30 mg 09/13/24 09:00 Duloxetine Hcl 30 Mg Capsule.Dr PO DAILY [facility] Enoxaparin Sodium 40 mg 09/12/24 09:00 09/12/24 08:00 Enoxaparin 40 Mg/0.4 Ml Syringe SUB-Q 40 mg DAILY RENATA Administration Levothyroxine Sodium 100 mcg 09/13/24 06:30 09/13/24 05:25 Levothyroxine Sodium 100 Mcg Tablet PO 100 mcg DAILY@0630 RENATA Administration Metoprolol Succinate 50 mg 09/12/24 09:00 09/12/24 07:57 Metoprolol Succinate Ext Rel 50 Mg Tabcr PO 50 mg DAILY RENATA Administration Perflutren Lipid Microsphere 0 ml 09/12/24 08:00 Perflutren Lipid Microspheres 1.5 Ml Vial Diluted To 10 Ml Total Volume IV PUSH 09/14/24 18:51 ONCE PRN adequate visualization Protocol Radiology Results: ITS Impressions Cervical Spine CT 09/11/24 11:26 Impression: No acute fracture. Minimal grade 1 anterolisthesis of C3 over C4. Mild degenerative change, as above. Head CT 09/11/24 11:26 Impression: No significant abnormality seen. Thoracic/Lumbar Spine CT 09/11/24 11:27 Impression: No acute abnormality. Minimal bilateral pleural effusions. Chest X-Ray 09/11/24 11:39 Impression: Possible minimal central congestive change. Knee X-Ray 09/11/24 11:39 Impression: No acute abnormality. Right knee arthroplasty. Brain MRI 09/12/24 13:40 IMPRESSION: Unremarkable exam. Labs Labs: Laboratory Results - last 24 hr 09/12/24 09/12/24 09/12/24 11:32 16:28 18:26 WBC RBC Hgb Hct MCV MCH MCHC RDW Plt Count MPV Immature Gran % (Auto) Neut % (Auto) Lymph % (Auto) [place] % (Auto) Eos % (Auto) Baso % (Auto) Lymph # (Auto) [place] # (Auto) Eos # (Auto) Baso # (Auto) Abs Immat Gran (auto) Absolute Neuts (auto) Absolute Nucleated RBC Nucleated RBC % Sodium Potassium Chloride Carbon Dioxide Anion Gap BUN Creatinine Estim Creat Clear Calc Estimated GFR Glucose POC Capillary Glucose 122 H 119 H Calcium Total Bilirubin AST ALT Alkaline Phosphatase Total Protein Albumin Vitamin B12 Vitamin D 25-Hydroxy Folate TSH Urine Color Yellow Urine Appearance Cloudy H Urine pH 8.0 Ur Specific [place] 1.016 Urine Protein Negative Urine Glucose (UA) Negative Urine Ketones Negative Ur Blood (Man) Negative Urine Nitrate Negative Urine Bilirubin Negative Urine Urobilinogen 0.2 Leukocyte Esterase Rfl Negative Urine RBC 0-2 Urine WBC 0-5 Ur Squamous Epith Cells None seen Urine Bacteria 2+ H Urine Casts 0-2 09/12/24 09/12/24 09/13/24 19:55 20:07 05:44 WBC 6.0 RBC 4.20 Hgb 13.2 Hct 41.5 MCV 98.8 MCH 31.4 MCHC 31.8 L RDW 13.4 Plt Count 167 MPV 10.6 H Immature Gran % (Auto) 0.7 H Neut % (Auto) 50.9 Lymph % (Auto) 36.2 [place] % (Auto) 11.6 H Eos % (Auto) 0.3 Baso % (Auto) 0.3 Lymph # (Auto) 2.16 [place] # (Auto) 0.7 H Eos # (Auto) 0.0 Baso # (Auto) 0.0 Abs Immat Gran (auto) 0.04 H Absolute Neuts (auto) 3.0 Absolute Nucleated RBC 0.000 Nucleated RBC % 0.0 Sodium 134 L Potassium 4.0 Chloride 101 Carbon Dioxide 26 Anion Gap 7 BUN 19 H Creatinine 0.60 L Estim Creat Clear Calc 102 Estimated GFR > 60 Glucose 91 POC Capillary Glucose 152 H Calcium 9.0 Total Bilirubin 0.6 AST 21 ALT 19 Alkaline Phosphatase 81 Total Protein 6.0 L Albumin 3.5 Vitamin B12 368.0 Vitamin D 25-Hydroxy 40.3 Folate 3.5 TSH 2.090 Urine Color Urine Appearance Urine pH Ur Specific [place] Urine Protein Urine Glucose (UA) Urine Ketones Ur Blood (Man) Urine Nitrate Urine Bilirubin Urine Urobilinogen Leukocyte Esterase Rfl Urine RBC Urine WBC Ur Squamous Epith Cells Urine Bacteria Urine Casts 09/13/24 07:44 WBC RBC Hgb Hct MCV MCH MCHC RDW Plt Count MPV Immature Gran % (Auto) Neut % (Auto) Lymph % (Auto) [place] % (Auto) Eos % (Auto) Baso % (Auto) Lymph # (Auto) [place] # (Auto) Eos # (Auto) Baso # (Auto) Abs Immat Gran (auto) Absolute Neuts (auto) Absolute Nucleated RBC Nucleated RBC % Sodium Potassium Chloride Carbon Dioxide Anion Gap BUN Creatinine Estim Creat Clear Calc Estimated GFR Glucose POC Capillary Glucose 104 Calcium Total Bilirubin AST ALT Alkaline Phosphatase Total Protein Albumin Vitamin B12 Vitamin D 25-Hydroxy Folate TSH Urine Color Urine Appearance Urine pH Ur Specific [place] Urine Protein Urine Glucose (UA) Urine Ketones Ur Blood (Man) Urine Nitrate Urine Bilirubin Urine Urobilinogen Leukocyte Esterase Rfl Urine RBC Urine WBC Ur Squamous Epith Cells Urine Bacteria Urine Casts Quality VTE Prophylaxis VTE prophylaxis: pharmacologic ordered
[2024-09-13] MEDS: DIVALPROEX SODIUM ER 500 MG TAB.24H PO ×2 (09:30→21:27)
[2024-09-13] MEDS: ENOXAPARIN 40 MG/0.4 ML SYRINGE SUB-Q (09:30)
[2024-09-13] MEDS: METOPROLOL SUCCINATE EXT REL 50 MG TABCR PO (09:30)
[2024-09-13] MEDS: DULoxetine HCL 30 MG CAPSULE.DR PO (09:30)
[2024-09-13] MEDS: ASPIRIN 81 MG CHEWABLE TABLET PO (09:30)
[2024-09-13] MEDS: CARBIDOPA/LEVODOPA 25/100 MG TABLET 1 TABLET PO ×3 (09:30→16:05)
[2024-09-13 11:51] LABS: Glucose Point of Care 112 mg/dl (65-105)
[2024-09-13 16:45] LABS: Glucose Point of Care 109 mg/dl (65-105)
[2024-09-13 20:45] LABS: Glucose Point of Care 131 mg/dl (65-105)
[2024-09-13] MEDS: ACETAMINOPHEN 325 MG TABLET 650 MG PO (21:27)
[2024-09-13] MEDS: ATORVASTATIN 20 MG TABLET PO (21:27)
[2024-09-13] MEDS: BENZTROPINE MESYLATE 0.5 MG TABLET PO (21:27)
[2024-09-14] VITALS (9 sets, daily range): BP systolic 121–151; BP diastolic 64–74; PULSE 60–68; RESP 16–20; TEMP 36.1–36.4; O2SAT 95–97
[2024-09-14] MEDS: LEVOTHYROXINE SODIUM 100 MCG TABLET PO (05:16)
[2024-09-14 07:10] LABS: Basophils Percent Auto 0.7 % (0.2-1.2); Eosinophils Percent Auto 0.2 % (0-4.4); Hematocrit 47.8 % (37.0-47.0); Hemoglobin 14.9 g/dL (12.0-15.0); Immature Granulocyte Absolute 0.05 K/mm3 (0.00-0.031); Immature Granulocyte Percent A 0.9 % (0-0.5); Lymphocytes Absolute Auto 1.95 K/mm3 (0.9-3.2); Lymphocytes Percent Auto 35.8 % (18.3-44.2); Mean Corpuscular HGB Conc 31.2 g/dl (32-36); Mean Corpuscular Hemoglobin 30.8 pg (26-34); Mean Corpuscular Volume 98.8 fl (80-100); Mean Platelet Volume 10.7 fl (7.4-10.4); Monocytes Absolute Auto 0.6 K/mm3 (0.1-0.6); Monocytes Percent Auto 10.8 % (2.6-8.5); Neutrophils Absolute Auto 2.8 K/mm3 (1.3-6.7); Neutrophils Percent Auto 51.6 % (45.5-73.1); Platelet Count Result 151 k/mm3 (150-375); Red Blood Count 4.84 M/mm3 (4.2-5.4); Red Cell Distribution Width 13.4 % (11.5-14.5); White Blood Count 5.5 K/mm3 (4.5-10.0)
[2024-09-14 07:15] LABS: Alanine Aminotransferase 19 U/L (6-35); Albumin Level 4.1 g/dL (3.5-5.1); Alkaline Phosphatase 101 U/L (38-126); Anion Gap 10 mmol/L (4-12); Aspartate Amino Transferase 22 U/L (14-36); Bilirubin,Total 0.4 mg/dL (0.2-1.3); Blood Urea Nitrogen 16 mg/dL (7-17); Calcium 9.2 mg/dL (8.4-10.2); Carbon Dioxide 28 mmol/L (22-30); Chloride 99 mmol/L (98-107); Estimated CRCL calculation 88 ml/min; Estimated Glomerular Filt Rate > 60; Glucose 91 mg/dL (65-110); Potassium 3.7 mmol/L (3.4-5.0); Sodium 137 mmol/L (137-145)
[2024-09-14 07:49] LABS: Glucose Point of Care 101 mg/dl (65-105)
[2024-09-14] MEDS: CARBIDOPA/LEVODOPA 25/100 MG TABLET 1 TABLET PO ×3 (09:23→17:16)
[2024-09-14] MEDS: ASPIRIN 81 MG CHEWABLE TABLET PO (09:23)
[2024-09-14] MEDS: ENOXAPARIN 40 MG/0.4 ML SYRINGE SUB-Q (09:23)
[2024-09-14] MEDS: DULoxetine HCL 30 MG CAPSULE.DR PO (09:23)
[2024-09-14] MEDS: DIVALPROEX SODIUM ER 500 MG TAB.24H PO ×2 (09:23→21:45)
[2024-09-14] MEDS: METOPROLOL SUCCINATE EXT REL 50 MG TABCR PO (09:23)
--- NOTE | 2024-09-14 10:34 | P.PNIM_ITS ---
Progress Note: A&P Assessment and Plan (1) Slurring of speech: Code(s): R47.81 - Slurred speech Status: Acute Assessment and Plan: * No signs of slurred speech at this time * Neurology reviewed brain MRI and CT of her head and had no recommendations at this time. They can be reconsulted if she develops slurred speech again or neurological changes. * PT and OT to evaluate * Speech therapy recommending minced and moist diet level 5 at this time * Case coordination following * Continue regular diet * MRI of brain was negative for any acute finding * CT of head was also negative for any acute findings * ApneaLink showed a normal AHI (2) Weakness: Code(s): R53.1 - Weakness Status: Acute Assessment and Plan: * Care coordination following for outpatient rehab needs * PT and OT following (3) Schizophrenia: Code(s): F20.9 - Schizophrenia, unspecified Status: Acute Assessment and Plan: * Continue home medication (4) Morbid obesity: Code(s): E66.01 - Morbid (severe) obesity due to excess calories Status: Acute Assessment and Plan: * BMI 45.1, 115.5 kg * Encourage low-fat diet Time Spent With Patient Time with patient: Greater than 35 minutes Subjective Date/time seen: 09/14/24 10:34 Interval history: Interval history: This is a 63-year-old female with a significant past medical history of schizophrenia who was brought in to the emergency room for further evaluation of slurred speech on 09/11/2024. Patient is a resident of [facility]. Workup in the hospital included a cervical spine CT which did not show any acute fracture, minimal grade 1 anteriorolisthesis of C3 over C4, mild degenerative changes. Head CT was negative. Thoracic/lumbar spine CT was negative for any acute abnormality, bilateral pleural effusions. Chest x-ray shown minimal central congestive changes. Left knee x-ray was negative for any acute abnormality. Right knee x-ray was also negative for any acute abnormality. Brain MRI was negative for any acute intracranial process. Initial labs shown a normal white blood cell count of 6.4, bicarb level 31, blood sugar was 107, lactic acid 1.8, otherwise unremarkable. A UA was obtained and showed cloudy appearance, 3-5 urine RBC, few amorphous sediment, otherwise negative. Blood cultures were obtained and are currently showing no growth to date on preliminary read. EKG showed sinus rhythm with first-degree AV block, left axis deviation with a rate of 65, QTC 398. Echocardiogram showed normal LV systolic function with an estimated EF of 60-65%, grade 1 diastolic dysfunction. Neurology was consulted and reviewed the brain MRI and CT scan which did not show any abnormality. Neurology as to be reconsulted if another episode of dysarthria or neurological problems persist. Patient did state that she took a little blue pill at her facility for chronic pain and attributed her episode of unresponsiveness due to that medication. PT and OT have been evaluating her as well as Case coordination for any outpatient rehab needs. Subjective: Patient denies any fever, chills, nausea, vomiting, diarrhea, abdominal pain, chest pain, shortness a breath. She states she has been ambulating in the halls with therapy and states she is doing well. She does not appear to have any slurred speech and appears neurologically intact. Labs and imaging were revie wed Review of Systems Review of Systems: All systems reviewed & are unremarkable except as noted in HPI and below Constitutional: Constitutional: Reports as per HPI and Reports no additional constitutional complaints Eyes: Eyes: Reports as per HPI and Reports no additional eye complaints ENT: Reports system reviewed and no additional complaints, except as documented and Reports as per HPI Cardiovascular: Cardiovascular: Reports as per HPI and Reports no additional cardiovascular complaints Respiratory: Respiratory: Reports as per HPI and Reports no additional respiratory complaints Gastrointestinal: Gastrointestinal: Reports as per HPI and Reports no additional gastrointestinal complaints Genitourinary: Genitourinary: Reports no additional female genitourinary complaints and Reports as per HPI Musculoskeletal: Musculoskeletal: Reports no additional musculoskeletal complaints and Reports as per HPI Integumentary/Breasts: Skin/Breast: Reports system reviewed and no additional complaints, except as docu and Reports as per HPI Neurologic: Reports system reviewed and no additional complaints, except as documented and Reports as per HPI Psychiatric: Psychiatric: Reports no additional psychiatric complaints and Reports as per HPI Exam Narrative: General: In no acute distress, well nourished Head: atraumatic, no encephalopathy Eyes: EOMI, PERRLA, sclera clear, bulging eyes ENT: moist mucous membranes, nasal passages clear Neck: supple, no JVD, no adenopathy, trachea midline Cardiac: Normal S1 and S2. No murmur, gallops or friction rubs, peripheral pulses intact. Respiratory: Lungs clear to auscultation, no adventitious lung sounds, currently on room air Gastrointestinal: soft, non-distended, non-tender, normoactive bowel sounds. : voiding without difficulty. Extremities: moves all extremities well, no edema Skin: clean, dry, intact. No wounds or lesions. Neuro: Alert and oriented x3, cranial nerves intact, no neuro deficits. No slurred speech or facial droop Psych: normal mood, flat affect, interactive, repetitive speech Objective Data Vital Signs Vital Signs: Vital Signs - 24 hr 09/13/24 12:00 09/13/24 12:00 09/13/24 16:00 Temperature 96.6 F L 97.7 F Pulse Rate 72 71 67 Respiratory Rate 20 18 Blood Pressure 122/60 109/59 L Pulse Oximetry 93 95 Oxygen Delivery 09/13/24 16:00 09/13/24 20:00 09/13/24 20:00 Temperature 97.4 F L Pulse Rate 69 67 Respiratory Rate 20 Blood Pressure 122/66 Pulse Oximetry 95 95 Oxygen Delivery Room Air 09/14/24 05:28 09/13/24 20:00 09/14/24 00:00 Temperature 97.0 F L Pulse Rate 64 65 61 Respiratory Rate 16 Blood Pressure 151/74 H Pulse Oximetry 97 Oxygen Delivery 09/14/24 04:00 Temperature Pulse Rate 61 Respiratory Rate Blood Pressure Pulse Oximetry Oxygen Delivery Intake/Output Intake/Output: Intake & Output 09/11/24 09/12/24 09/13/24 09/14/24 23:59 23:59 23:59 23:59 Intake Total 1220 1506 2036 690 Output Total 0579 843 2375 Balance 1220 -444 1486 -910 Meds/Results Medications: Active Medications Generic Name Dose Route Start Last Admin Trade Name Freq PRN Reason Stop Dose Admin Acetaminophen 650 mg 09/11/24 14:41 09/13/24 21:27 Acetaminophen 325 Mg Tablet PO 650 mg Q4H PRN Administration Mild Pain (1-3) or Fever Aspirin 81 mg 09/12/24 08:00 09/14/24 09:23 Aspirin 81 Mg Chewable Tablet PO 81 mg DAILY@0800 RENATA Administration Atorvastatin Calcium 20 mg 09/12/24 21:00 09/13/24 21:27 Atorvastatin 20 Mg Tablet PO 20 mg HS RENATA Administration Benztropine Mesylate 0.5 mg 09/12/24 21:00 09/13/24 21:27 Benztropine Mesylate 0.5 Mg Tablet PO 0.5 mg HS RENATA Administration Carbidopa/Levodopa 1 tablet 09/13/24 09:00 09/14/24 09:23 Carbidopa/Levodopa 25/100 Mg Tablet PO 1 tablet TID RENATA Administration Divalproex Sodium 500 mg 09/12/24 21:00 09/14/24 09:23 Divalproex Sodium Er 500 Mg Tab.24h PO 500 mg Q12HR RENATA Administration Duloxetine HCl 30 mg 09/13/24 09:00 09/14/24 09:23 Duloxetine Hcl 30 Mg Capsule.Dr PO 30 mg DAILY RENATA Administration Enoxaparin Sodium 40 mg 09/12/24 09:00 09/14/24 09:23 Enoxaparin 40 Mg/0.4 Ml Syringe SUB-Q 40 mg DAILY RENATA Administration Levothyroxine Sodium 100 mcg 09/13/24 06:30 09/14/24 05:16 Levothyroxine Sodium 100 Mcg Tablet PO 100 mcg DAILY@0630 RENATA Administration Metoprolol Succinate 50 mg 09/12/24 09:00 09/14/24 09:23 Metoprolol Succinate Ext Rel 50 Mg Tabcr PO 50 mg DAILY RENATA Administration Perflutren Lipid Microsphere 0 ml 09/12/24 08:00 Perflutren Lipid Microspheres 1.5 Ml Vial Diluted To 10 Ml Total Volume IV PUSH 09/14/24 18:51 ONCE PRN adequate visualization Protocol Radiology Results: ITS Impressions Cervical Spine CT 09/11/24 11:26 Impression: No acute fracture. Minimal grade 1 anterolisthesis of C3 over C4. Mild degenerative change, as above. Head CT 09/11/24 11:26 Impression: No significant abnormality seen. Thoracic/Lumbar Spine CT 09/11/24 11:27 Impression: No acute abnormality. Minimal bilateral pleural effusions. Chest X-Ray 09/11/24 11:39 Impression: Possible minimal central congestive change. Knee X-Ray 09/11/24 11:39 Impression: No acute abnormality. Right knee arthroplasty. Brain MRI 09/12/24 13:40 IMPRESSION: Unremarkable exam. Labs Labs: Laboratory Results - last 24 hr 09/13/24 09/13/24 09/13/24 11:37 16:35 20:19 WBC RBC Hgb Hct MCV MCH MCHC RDW Plt Count MPV Immature Gran % (Auto) Neut % (Auto) Lymph % (Auto) [place] % (Auto) Eos % (Auto) Baso % (Auto) Lymph # (Auto) [place] # (Auto) Eos # (Auto) Baso # (Auto) Abs Immat Gran (auto) Absolute Neuts (auto) Absolute Nucleated RBC Nucleated RBC % Sodium Potassium Chloride Carbon Dioxide Anion Gap BUN Creatinine Estim Creat Clear Calc Estimated GFR Glucose POC Capillary Glucose 112 H 109 H 131 H Calcium Total Bilirubin AST ALT Alkaline Phosphatase Total Protein Albumin 09/14/24 09/14/24 06:23 07:38 WBC 5.5 RBC 4.84 Hgb 14.9 Hct 47.8 H MCV 98.8 MCH 30.8 MCHC 31.2 L RDW 13.4 Plt Count 151 MPV 10.7 H Immature Gran % (Auto) 0.9 H Neut % (Auto) 51.6 Lymph % (Auto) 35.8 [place] % (Auto) 10.8 H Eos % (Auto) 0.2 Baso % (Auto) 0.7 Lymph # (Auto) 1.95 [place] # (Auto) 0.6 Eos # (Auto) 0.0 Baso # (Auto) 0.0 Abs Immat Gran (auto) 0.05 H Absolute Neuts (auto) 2.8 Absolute Nucleated RBC 0.000 Nucleated RBC % 0.0 Sodium 137 Potassium 3.7 Chloride 99 Carbon Dioxide 28 Anion Gap 10 BUN 16 Creatinine 0.70 Estim Creat Clear Calc 88 Estimated GFR > 60 Glucose 91 POC Capillary Glucose 101 Calcium 9.2 Total Bilirubin 0.4 AST 22 ALT 19 Alkaline Phosphatase 101 Total Protein 8.0 Albumin 4.1 Quality VTE Prophylaxis VTE prophylaxis: pharmacologic ordered
[2024-09-14 11:54] LABS: Glucose Point of Care 107 mg/dl (65-105)
[2024-09-14 16:48] LABS: Glucose Point of Care 115 mg/dl (65-105)
[2024-09-14 16:49] LABS: Glucose Point of Care 106 mg/dl (65-105)
[2024-09-14 20:08] LABS: Glucose Point of Care 134 mg/dl (65-105)
[2024-09-14] MEDS: ATORVASTATIN 20 MG TABLET PO (21:46)
[2024-09-14] MEDS: BENZTROPINE MESYLATE 0.5 MG TABLET PO (21:46)
[2024-09-14] MEDS: ACETAMINOPHEN 325 MG TABLET 650 MG PO (21:46)
[2024-09-15] VITALS: PULSE 63
[2024-09-15 04:00] VITALS: PULSE 62
[2024-09-15 05:17] VITALS: BP 129/83; PULSE 64; RESP 18; TEMP 36.3; O2SAT 97
[2024-09-15] MEDS: LEVOTHYROXINE SODIUM 100 MCG TABLET PO (05:30)
[2024-09-15 06:43] LABS: Basophils Percent Auto 0.3 % (0.2-1.2); Eosinophils Percent Auto 0.3 % (0-4.4); Hematocrit 45.1 % (37.0-47.0); Hemoglobin 14.4 g/dL (12.0-15.0); Immature Granulocyte Absolute 0.03 K/mm3 (0.00-0.031); Immature Granulocyte Percent A 0.5 % (0-0.5); Lymphocytes Percent Auto 32.7 % (18.3-44.2); Mean Corpuscular HGB Conc 31.9 g/dl (32-36); Mean Corpuscular Hemoglobin 31.2 pg (26-34); Mean Corpuscular Volume 97.8 fl (80-100); Mean Platelet Volume 10.3 fl (7.4-10.4); Monocytes Absolute Auto 0.6 K/mm3 (0.1-0.6); Neutrophils Absolute Auto 3.3 K/mm3 (1.3-6.7); Neutrophils Percent Auto 56.2 % (45.5-73.1); Platelet Count Result 156 k/mm3 (150-375); Red Blood Count 4.61 M/mm3 (4.2-5.4); Red Cell Distribution Width 13.4 % (11.5-14.5); White Blood Count 5.8 K/mm3 (4.5-10.0)
[2024-09-15 06:59] LABS: Alanine Aminotransferase 19 U/L (6-35); Albumin Level 4.1 g/dL (3.5-5.1); Alkaline Phosphatase 95 U/L (38-126); Anion Gap 8 mmol/L (4-12); Aspartate Amino Transferase 25 U/L (14-36); Bilirubin,Total 0.5 mg/dL (0.2-1.3); Blood Urea Nitrogen 15 mg/dL (7-17); Calcium 9.2 mg/dL (8.4-10.2); Carbon Dioxide 31 mmol/L (22-30); Chloride 97 mmol/L (98-107); Estimated CRCL calculation 88 ml/min; Estimated Glomerular Filt Rate > 60; Glucose 106 mg/dL (65-110); Potassium 4.3 mmol/L (3.4-5.0); Sodium 136 mmol/L (137-145)
[2024-09-15 08:00] VITALS: PULSE 64; RESP 18; O2SAT 97
[2024-09-15] MEDS: CARBIDOPA/LEVODOPA 25/100 MG TABLET 1 TABLET PO ×3 (09:17→16:57)
[2024-09-15] MEDS: METOPROLOL SUCCINATE EXT REL 50 MG TABCR PO (09:17)
[2024-09-15] MEDS: DULoxetine HCL 30 MG CAPSULE.DR PO (09:17)
[2024-09-15] MEDS: ASPIRIN 81 MG CHEWABLE TABLET PO (09:17)
[2024-09-15] MEDS: ENOXAPARIN 40 MG/0.4 ML SYRINGE SUB-Q (09:17)
[2024-09-15] MEDS: DIVALPROEX SODIUM ER 500 MG TAB.24H PO (09:17)
--- NOTE | 2024-09-15 10:39 | P.PNIM_ITS ---
Progress Note: A&P Assessment and Plan (1) Slurring of speech: Code(s): R47.81 - Slurred speech Status: Acute Assessment and Plan: * No signs of slurred speech at this time * Neurology reviewed brain MRI and CT of her head and had no recommendations at this time. They can be reconsulted if she develops slurred speech again or neurological changes. * PT and OT to evaluate * Speech therapy recommending minced and moist diet level 5 at this time * Case coordination following * Continue regular diet * MRI of brain was negative for any acute finding * CT of head was also negative for any acute findings * ApneaLink showed a normal AHI (2) Weakness: Code(s): R53.1 - Weakness Status: Acute Assessment and Plan: * Care coordination following for outpatient rehab needs * PT and OT following (3) Schizophrenia: Code(s): F20.9 - Schizophrenia, unspecified Status: Acute Assessment and Plan: * Continue home medication (4) Morbid obesity: Code(s): E66.01 - Morbid (severe) obesity due to excess calories Status: Acute Assessment and Plan: * BMI 45.1, 115.5 kg * Encourage low-fat diet Subjective Date/time seen: 09/15/24 10:39 Objective Data Vital Signs Vital Signs: Vital Signs - 24 hr 09/14/24 14:00 09/14/24 12:00 09/14/24 16:00 Temperature 97.3 F L Pulse Rate 68 68 60 Respiratory Rate 18 Blood Pressure 121/64 Pulse Oximetry 95 Oxygen Delivery Fraction of Inspired Oxygen 09/14/24 21:02 09/14/24 20:00 09/15/24 05:17 Temperature 97.5 F L 97.3 F L Pulse Rate 65 64 Respiratory Rate 20 18 Blood Pressure 126/64 129/83 Pulse Oximetry 96 96 97 Oxygen Delivery Room Air Fraction of Inspired Oxygen 09/14/24 20:00 09/15/24 00:00 09/15/24 04:00 Temperature Pulse Rate 61 63 62 Respiratory Rate Blood Pressure Pulse Oximetry Oxygen Delivery Fraction of Inspired Oxygen 09/15/24 08:00 09/15/24 08:00 Temperature Pulse Rate 64 64 Respiratory Rate 18 Blood Pressure Pulse Oximetry 97 Oxygen Delivery Room Air Fraction of Inspired Oxygen 21 Intake/Output Intake/Output: Intake & Output 09/12/24 09/13/24 09/14/24 09/15/24 23:59 23:59 23:59 23:59 Intake Total 1506 2036 1170 640 Output Total 6089 876 9643 950 Balance -4 2986 -682 -502 Meds/Results Medications: Active Medications Generic Name Dose Route Start Last Admin Trade Name Freq PRN Reason Stop Dose Admin Acetaminophen 650 mg 09/11/24 14:41 09/14/24 21:46 Acetaminophen 325 Mg Tablet PO 650 mg Q4H PRN Administration Mild Pain (1-3) or Fever Aspirin 81 mg 09/12/24 08:00 09/15/24 09:17 Aspirin 81 Mg Chewable Tablet PO 81 mg DAILY@0800 [facility] Administration Atorvastatin Calcium 20 mg 09/12/24 21:00 09/14/24 21:46 Atorvastatin 20 Mg Tablet PO 20 mg HS RENATA Administration Benztropine Mesylate 0.5 mg 09/12/24 21:00 09/14/24 21:46 Benztropine Mesylate 0.5 Mg Tablet PO 0.5 mg HS RENATA Administration Carbidopa/Levodopa 1 tablet 09/13/24 09:00 09/15/24 09:17 Carbidopa/Levodopa 25/100 Mg Tablet PO 1 tablet TID RENATA Administration Divalproex Sodium 500 mg 09/12/24 21:00 09/15/24 09:17 Divalproex Sodium Er 500 Mg Tab.24h PO 500 mg Q12HR RENATA Administration Duloxetine HCl 30 mg 09/13/24 09:00 09/15/24 09:17 Duloxetine Hcl 30 Mg Capsule.Dr PO 30 mg DAILY RENATA Administration Enoxaparin Sodium 40 mg 09/12/24 09:00 09/15/24 09:17 Enoxaparin 40 Mg/0.4 Ml Syringe SUB-Q 40 mg DAILY RENATA Administration Levothyroxine Sodium 100 mcg 09/13/24 06:30 09/15/24 05:30 Levothyroxine Sodium 100 Mcg Tablet PO 100 mcg DAILY@0630 RENATA Administration Metoprolol Succinate 50 mg 09/12/24 09:00 09/15/24 09:17 Metoprolol Succinate Ext Rel 50 Mg Tabcr PO 50 mg DAILY RENATA Administration Radiology Results: ITS Impressions Cervical Spine CT 09/11/24 11:26 Impression: No acute fracture. Minimal grade 1 anterolisthesis of C3 over C4. Mild degenerative change, as above. Head CT 09/11/24 11:26 Impression: No significant abnormality seen. Thoracic/Lumbar Spine CT 09/11/24 11:27 Impression: No acute abnormality. Minimal bilateral pleural effusions. Chest X-Ray 09/11/24 11:39 Impression: Possible minimal central congestive change. Knee X-Ray 09/11/24 11:39 Impression: No acute abnormality. Right knee arthroplasty. Brain MRI 09/12/24 13:40 IMPRESSION: Unremarkable exam. Labs Labs: Laboratory Results - last 24 hr 09/14/24 09/14/24 09/14/24 11:30 16:19 16:47 WBC RBC Hgb Hct MCV MCH MCHC RDW Plt Count MPV Immature Gran % (Auto) Neut % (Auto) Lymph % (Auto) [place] % (Auto) Eos % (Auto) Baso % (Auto) Lymph # (Auto) [place] # (Auto) Eos # (Auto) Baso # (Auto) Abs Immat Gran (auto) Absolute Neuts (auto) Absolute Nucleated RBC Nucleated RBC % Sodium Potassium Chloride Carbon Dioxide Anion Gap BUN Creatinine Estim Creat Clear Calc Estimated GFR Glucose POC Capillary Glucose 107 H 115 H 106 H Calcium Magnesium Total Bilirubin AST ALT Alkaline Phosphatase Total Protein Albumin 09/14/24 09/15/24 09/15/24 19:54 06:14 06:20 WBC 5.8 RBC 4.61 Hgb 14.4 Hct 45.1 MCV 97.8 MCH 31.2 MCHC 31.9 L RDW 13.4 Plt Count 156 MPV 10.3 Immature Gran % (Auto) 0.5 Neut % (Auto) 56.2 Lymph % (Auto) 32.7 [place] % (Auto) 10.0 H Eos % (Auto) 0.3 Baso % (Auto) 0.3 Lymph # (Auto) 1.90 [place] # (Auto) 0.6 Eos # (Auto) 0.0 Baso # (Auto) 0.0 Abs Immat Gran (auto) 0.03 Absolute Neuts (auto) 3.3 Absolute Nucleated RBC 0.000 Nucleated RBC % 0.0 Sodium 136 L Potassium 4.3 Chloride 97 L Carbon Dioxide 31 H Anion Gap 8 BUN 15 Creatinine 0.70 Estim Creat Clear Calc 88 Estimated GFR > 60 Glucose 106 POC Capillary Glucose 134 H Calcium 9.2 Magnesium 2.0 Total Bilirubin 0.5 AST 25 ALT 19 Alkaline Phosphatase 95 Total Protein 7.0 Albumin 4.1 Quality VTE Prophylaxis VTE prophylaxis: pharmacologic ordered
--- NOTE | 2024-09-15 12:57 | P.DS_ITS ---
DS: Admitting Diagnosis Discharge Date 09/15/2024 Admitting Diagnosis Weakness DS: Discharge Diagnosis Discharge Diagnosis (1) Weakness: Code(s): R53.1 - Weakness Status: Acute (2) Slurring of speech: Code(s): R47.81 - Slurred speech Status: Acute (3) Schizophrenia: Code(s): F20.9 - Schizophrenia, unspecified Status: Acute (4) Morbid obesity: Code(s): E66.01 - Morbid (severe) obesity due to excess calories Status: Acute DS: Summary Hospital Course Hospital Course: This is a 63-year-old female with a significant past medical history of schizophrenia who was brought in to the emergency room for further evaluation of slurred speech on 09/11/2024. Patient is a resident of [facility] living [facility]. Workup in the hospital included a cervical spine CT which did not show any acute fracture, minimal grade 1 anteriorolisthesis of C3 over C4, mild degenerative changes. Head CT was negative. Thoracic/lumbar spine CT was negative for any acute abnormality, bilateral pleural effusions. Chest x-ray shown minimal central congestive changes. Left knee x-ray was negative for any acute abnormality. Right knee x-ray was also negative for any acute abnormality. Brain MRI was negative for any acute intracranial process. Initial labs shown a normal white blood cell count of 6.4, bicarb level 31, blood sugar was 107, lactic acid 1.8, otherwise unremarkable. A UA was obtained and showed cloudy appearance, 3-5 urine RBC, few amorphous sediment, otherwise negative. Blood cultures were obtained and are currently showing no growth to date on preliminary read. EKG showed sinus rhythm with first-degree AV block, left axis deviation with a rate of 65, QTC 398. Echocardiogram showed normal LV systolic function with an estimated EF of 60-65%, grade 1 diastolic dysfunction. Neurology was consulted and reviewed the brain MRI and CT scan which did not show any abnormality. Neurology as to be reconsulted if another episode of dysarthria or neurological problems persist. Patient did state that she took a little blue pill at her facility for chronic pain and attributed her episode of unresponsiveness due to that medication. PT and OT. Patient to transfer to [facility] bed for rehab before returning to [place]. Status at Discharge Functional status at discharge: independent ambulation Overall status at discharge: patient is not back to baseline Time Spent with Patient Time attestation: Total time spent providing and/or coordinating discharge services: Time spent: Greater than 30 minutes Exam Const: General: comfortable and no acute distress Eyes: Sclera: sclerae normal Resp: Effort & Inspection: normal respiratory effort Auscultation: clear to auscultation bilaterally Cardio: Rate: regular rate Rhythm: regular rhythm GI: GI Palp: Yes Soft to palpation Auscultation: normal bowel sounds Extrem: General: normal to inspection Psych: Mental Status: mental status grossly normal DS: Data Data Completed and Pending Labs on day of discharge: Labs from last 24 hours 09/15/24 09/15/24 09/14/24 06:20 06:14 19:54 WBC 5.8 RBC 4.61 Hgb 14.4 Hct 45.1 MCV 97.8 MCH 31.2 MCHC 31.9 L RDW 13.4 Plt Count 156 MPV 10.3 Immature Gran % (Auto) 0.5 Neut % (Auto) 56.2 Lymph % (Auto) 32.7 [place] % (Auto) 10.0 H Eos % (Auto) 0.3 Baso % (Auto) 0.3 Lymph # (Auto) 1.90 [place] # (Auto) 0.6 Eos # (Auto) 0.0 Baso # (Auto) 0.0 Abs Immat Gran (auto) 0.03 Absolute Neuts (auto) 3.3 Absolute Nucleated RBC 0.000 Nucleated RBC % 0.0 Sodium 136 L Potassium 4.3 Chloride 97 L Carbon Dioxide 31 H Anion Gap 8 BUN 15 Creatinine 0.70 Estim Creat Clear Calc 88 Estimated GFR > 60 Glucose 106 POC Capillary Glucose 134 H Calcium 9.2 Magnesium 2.0 Total Bilirubin 0.5 AST 25 ALT 19 Alkaline Phosphatase 95 Total Protein 7.0 Albumin 4.1 09/14/24 09/14/24 16:47 16:19 WBC RBC Hgb Hct MCV MCH MCHC RDW Plt Count MPV Immature Gran % (Auto) Neut % (Auto) Lymph % (Auto) [place] % (Auto) Eos % (Auto) Baso % (Auto) Lymph # (Auto) [place] # (Auto) Eos # (Auto) Baso # (Auto) Abs Immat Gran (auto) Absolute Neuts (auto) Absolute Nucleated RBC Nucleated RBC % Sodium Potassium Chloride Carbon Dioxide Anion Gap BUN Creatinine Estim Creat Clear Calc Estimated GFR Glucose POC Capillary Glucose 106 H 115 H Calcium Magnesium Total Bilirubin AST ALT Alkaline Phosphatase Total Protein Albumin Preliminary micro results at discharge 09/11/24 13:03 Blood Culture - Preliminary Blood 09/11/24 13:03 Blood Culture - Preliminary Blood Discharge Plan Discharge Attending physician on discharge: Dorian Huber Consulting providers: Cong Bird; Rohit Antunez Discharging Clinician: Dafne Titus Anticipated Discharge Date/Time: 09/15/24 14:00 Patient Disposition: Hospital Swing Bed Activity: march shower Diet: regular Discharge Instructions: * PT/OT for strengthening. Patient Instructions: Antibiotic Form, Physical Activity for Older Adults (GEN) Stand Alone Forms: General Discharge Information Follow-up/Referrals: Cong Bird MD [Physician] - 2 Weeks Discharge Medications: New aspirin [Children's Aspirin] 81 mg Tablet,Chewable 81 mg PO DAILY@0800 Qty: 30 0RF Continued atorvastatin 20 mg tablet 20 mg PO HS benztropine 0.5 mg tablet 0.5 mg PO HS metoprolol succinate 50 mg tablet extended release 24 hr 50 mg PO DAILY levothyroxine 100 mcg tablet 100 mcg PO DAILY famotidine 20 mg tablet 20 mg PO DAILY divalproex 500 mg tablet extended release 24 hr 500 mg PO BID metronidazole 0.75 % cream 1 applic TOPICAL DAILY Rx Instructions: FOR FACE lorazepam 1 mg tablet 1 mg PO TID carbidopa-levodopa 25-100 mg tablet 25 - 100 tablet PO TID topiramate 50 mg tablet 50 mg PO BID duloxetine 30 mg capsule,delayed release(DR/EC) 30 mg PO DAILY cholecalciferol (vitamin D3) 50 mcg (2,000 unit) tablet 50 mcg PO DAILY Trulicity 0.75 mg/0.5 mL pen injector 0.75 mg SUBCUT WEEKLY Invega Sustenna 234 mg/1.5 mL Syringe 234 mg IM Q30D Date of admission: 09/11/24 14:42 Primary Care Provider: Tino Pan Admitting Provider: Renetta Arias Attending physician on admission: America Lenz Condition: Stable Hospitalist MIPS Heart Failure (Exclusion) Patient has history of Heart Transplant or Left Ventricular Assistive Device?: No IF YES, STOP HERE Heart Failure (Qualifier) Patient has current or prior documentation of LVEF less than or equal to 40%, or mod/servere depressed LVSF?: No IF NO, STOP HERE
[2024-09-15 14:00] VITALS: BP 121/58; PULSE 88; RESP 18; TEMP 36.7; O2SAT 100
--- NOTE | 2024-09-15 16:36 | PHAR ---
Pharmacy verified home med: Junior (dulaglutide) 0.75 mg/0.5 mL inject contents of syringe once weekly under the skin
[2024-09-15] MEDS: DULAGLUTIDE 0.75 MG 0.75 EACH SUB-Q (16:57)
[2024-09-15 17:17] LABS: Glucose Point of Care 110 mg/dl (65-105)
== END 2024-09-15 17:23 | disposition swing bed (61) ==
LOC: ANHED 14:36 → ANH3MEDSUR 15:29
PROVIDERS: Nurse Practitioner; Nurse Practitioner Family; Nurse Practitioner Gerontology; Psychiatry & Neurology Neurology; Admitting Provider Hospitalist; Emergency Provider Emergency Medicine; PCP Internal Medicine; Visit Provider Nurse Practitioner Acute Care
DX: R47.81 Slurred speech (principal); R53.1 Weakness; F20.9 Schizophrenia, unspecified; E66.01 Morbid (severe) obesity due to excess calories; Z68.41 Body mass index [BMI] 40.0-44.9, adult; I10 Essential (primary) hypertension; M54.2 Cervicalgia; M54.9 Dorsalgia, unspecified; M25.562 Pain in left knee; M25.561 Pain in right knee; W19.XXXA Unspecified fall, initial encounter; E78.5 Hyperlipidemia, unspecified; E03.9 Hypothyroidism, unspecified; Z87.891 Personal history of nicotine dependence; Z79.85 Long-term (current) use of injectable non-insulin antidiabetic drugs; Z79.899 Other long term (current) drug therapy
CPT/HCPCS: 36415; 70450; 70553; 71046; 72125; 72128; 72131; 73562; 80053; 81001; 82306; 82607; 82746; 82948; 83605; 83735; 84443; 85025; 86140; 87040; 92507; 92522; 92610; 93005; 93306; 94762; 96360; 96372; 96375; 97110; 97116; 97161; 97165; 97530; 97535; 99285; A9270; A9577; G0378; J1650; J7030

== ENCOUNTER 2024-09-15 18:46 | Inpatient (IN) | payer OTHER, SELFPAY ==
[2024-09-15 19:36] VITALS: PULSE 65; RESP 16; O2SAT 94; BMI 43.8
--- NOTE | 2024-09-15 19:59 | ADMGEN ---
This patient, Radha S Brother, was admitted to 2nd Floor Room 206-1. Patient/family oriented to hospital policies and general routines including ID bracelet, bed and alarms, visiting hours, pain management, procedures, bathroom and other care routines, personal items, smoking policy, room service/diet, and visiting hours. Information on how to activate the Rapid Response Team has been discussed. Patient/Family are encouraged to report perceived risks to care and to ask questions if they do not understand what they are told or what they should do.
[2024-09-15 20:07] LABS: Glucose Point of Care 97 mg/dl (65-105)
[2024-09-15] MEDS: TOLNAFTATE 1% POWDER 45 GM BTL 1 APPLIC TOPICAL (21:59)
[2024-09-15] MEDS: BENZTROPINE MESYLATE 0.5 MG TABLET PO (21:59)
[2024-09-15] MEDS: ATORVASTATIN 10 MG TABLET 20 MG PO (21:59)
[2024-09-15] MEDS: LORazepam (*CRX) 1 MG TABLET PO (22:02)
[2024-09-15] MEDS: CARBIDOPA/LEVODOPA 25/100 MG TABLET 1 TABLET PO (22:03)
[2024-09-16] VITALS: BP 125/63; PULSE 85; RESP 16; TEMP 36.8; O2SAT 95
[2024-09-16] MEDS: CARBIDOPA/LEVODOPA 25/100 MG TABLET 1 TABLET PO ×3 (05:38→21:00)
[2024-09-16] MEDS: LEVOTHYROXINE SODIUM 100 MCG TABLET PO (05:38)
[2024-09-16] MEDS: LORazepam (*CRX) 1 MG TABLET PO ×3 (05:39→21:00)
[2024-09-16 07:29] LABS: Basophils Absolute Auto 0.02 K/mm3 (0.00-0.10); Basophils Percent Auto 0.3 % (0.0-1.0); Eosinophils Absolute Auto 0.03 K/mm3 (0.02-0.50); Eosinophils Percent Auto 0.5 % (1.0-6.0); Hematocrit 43.4 % (35.0-49.0); Hemoglobin 14.2 g/dL (12.0-15.0); Immature Granulocyte Absolute 0.03 K/mm3 (0.00-0.00); Immature Granulocyte Percent A 0.5 % (0.0-0.0); Lymphocytes Absolute Auto 1.51 K/mm3 (1.10-4.50); Lymphocytes Percent Auto 25.7 % (18.0-42.0); Mean Corpuscular HGB Conc 32.7 g/dL (32-36); Mean Corpuscular Hemoglobin 31.6 pg (27.0-31.0); Mean Corpuscular Volume 96.7 fL (78.0-102.0); Mean Platelet Volume 9.8 fl (9.2-11.8); Monocytes Absolute Auto 0.64 K/mm3 (0.10-0.90); Monocytes Percent Auto 10.9 % (2.0-11.0); Neutrophils Absolute Auto 3.65 K/mm3 (1.70-7.20); Neutrophils Percent Auto 62.1 % (50.0-70.0); Platelet Count Result 155 K/mm3 (150-420); Red Blood Count 4.49 M/mm3 (4.20-5.40); Red Cell Distribution Width 13.3 % (11.6-14.4); White Blood Count 5.9 K/mm3 (4.8-10.8)
[2024-09-16 07:41] LABS: Alanine Aminotransferase 10 U/L (14-59); Albumin Level 3.1 g/dL (3.4-5.0); Alkaline Phosphatase 100 U/L (46-116); Anion Gap 7 mmol/L (4-12); Aspartate Amino Transferase 23 U/L (15-37); Bilirubin,Total 0.5 mg/dL (0.00-1.00); Blood Urea Nitrogen 22 mg/dL (7-18); Calcium 9.5 mg/dL (8.5-10.1); Carbon Dioxide 31 mmol/L (21-32); Chloride 102 mmol/L (98-108); Estimated CRCL calculation 82 ml/min; Estimated Glomerular Filt Rate > 60; Glucose 109 mg/dL (70-99); Osmolality Calculated 294 mOsm/kg (285-295); Potassium 4.4 mmol/L (3.5-5.1); Sodium 140 mmol/L (136-145); Total Protein 7.1 g/dL (6.4-8.2)
[2024-09-16 08:00] VITALS: BP 101/67; PULSE 67; RESP 16; TEMP 36.2; O2SAT 94
--- NOTE | 2024-09-16 09:15 | P.HP_ITS ---
H&P: HPI History of Present Illness Date/Time: 09/16/24 09:15 Chief Complaint: Deconditioned/ rehabilitation Narrative: Patient is a 63-year-old female who was [facility] continued physical and occupational therapy/ rehabilitation following admission to [facility] for generalized weakness, slurring of speech, and acute fracture of anteriorolisthesis of C3 over C4. patient is a resident of [facility] who has a history of schizophrenia but compliant on her medications due to her current acute fracture she will need rehabilitation to return to [place] was be able to walk prior to returning. During patient's admission to [facility] she was ruled out for acute stroke brain MRI and CT showed no abnormalities and neurology signed off. Patient was then trans ferred to [facility] for further PT/OT with pain control. Review of Systems Review of Systems: All systems reviewed & are unremarkable except as noted in HPI and below PMFSH Past Medical History Medical History (Updated 09/16/24 @ 09:32 by Anastasiya Chvais APRN) History of hyperlipidemia History of hypertension History of hypothyroidism Social History Social History Smoking packs per day: 2 Smoking cigarettes per day: 40.0 Years smoked: 48 Smoking pack-years: 96.00 Smoking status: Former smoker Tobacco type: cigarettes Second hand tobacco smoke exposure: No Smoking end date: 04/22/22 Alcohol intake: former Substance use: never Substance use type: does not use Do You Feel Safe in your Home?: Yes Lack of Transportation: No Lack of Food: Never True Current Housing: I Have Housing Concerned About Future Housing: No Difficulty Paying Gas/Electric Bills: No Difficulty Paying for Meds: No Currently Unemployed: No Education: Grade School Difficulty w/ Childcare or Family Care: No Gender identity (if verbalized by the patient): Female Spiritual care concerns: No Meds Home Medications and Allergies Home Medications Medication Instructions Recorded Confirmed Type atorvastatin 20 mg tablet 20 mg PO HS 03/21/21 09/15/24 History benztropine 0.5 mg tablet 0.5 mg PO HS 09/11/24 09/15/24 History carbidopa 25 mg-levodopa 100 mg 25 - 100 tablet PO TID 09/11/24 09/15/24 History tablet cholecalciferol (vitamin D3) 50 50 mcg PO DAILY 09/11/24 09/15/24 History mcg (2,000 unit) tablet divalproex 500 mg tablet,extended 500 mg PO BID 09/11/24 09/15/24 History release 24 hr dulaglutide 0.75 mg/0.5 mL 0.75 mg subcut WEEKLY 09/11/24 09/15/24 History subcutaneous pen injector (Trulicity) duloxetine 30 mg capsule,delayed 30 mg PO DAILY 09/11/24 09/15/24 History release famotidine 20 mg tablet 20 mg PO DAILY 09/11/24 09/15/24 History levothyroxine 100 mcg tablet 100 mcg PO DAILY 09/11/24 09/15/24 History lorazepam 1 mg tablet 1 mg PO TID 09/11/24 09/15/24 History metoprolol succinate 50 mg 50 mg PO DAILY 09/11/24 09/15/24 History tablet,extended release 24 hr metronidazole 0.75 % topical cream 1 applic topical DAILY 09/11/24 09/15/24 History paliperidone palmitate 234 mg/1.5 234 mg IM Q30D 09/11/24 09/15/24 History mL intramuscular syringe (Invega Sustenna) topiramate 50 mg tablet 50 mg PO BID 09/11/24 09/15/24 History aspirin 81 mg chewable tablet 81 mg PO DAILY@0800 #30 tabs 09/15/24 09/15/24 Rx (Children's Aspirin) Allergies Allergy/AdvReac Type Severity Reaction Status Date / Time hydrocodone Allergy Unknown Unknown Verified 09/11/24 14:02 meperidine Allergy Unknown Unknown Verified 09/11/24 14:02 morphine Allergy Unknown Unknown Verified 09/11/24 14:02 oxycodone Allergy Unknown Unknown Verified 09/11/24 14:02 Vital Signs Vital Signs - 24 hr 09/15/24 19:36 09/16/24 00:00 09/16/24 08:00 Temperature 98.2 F 97.1 F L Pulse Rate 65 85 67 Respiratory Rate 16 16 16 Blood Pressure 125/63 101/67 Pulse Oximetry 94 95 94 Oxygen Delivery Room Air Room Air Room Air Exam Narrative: * GENERAL: Alert and oriented x 3. No acute distress. Pleasant female * EYES: EOMI. No scleral icterus. PERRLA. * HEENT: Moist mucous membranes. * LUNGS: Clear to auscultation bilaterally. No accessory muscle use. * CARDIOVASCULAR: Regular rate and rhythm. No murmur. No JVD. S1-S2 * ABDOMEN: Soft, non tenderness and non-distended. No palpable masses. * EXTREMITIES: No edema. non-tender * SKIN: No rashes or lesions. Skin warm, dry. * NEUROLOGIC: No focal neurological deficits. CN II-XII grossly intact * PSYCHIATRIC: Appropriate mood and affect. Good judgement and insight. No visual or auditory hallucinations. No suicidal or homicidal ideation. H&P: Results Labs Labs: Short CBC 09/16/24 Range/Units 07:18 WBC 5.9 (4.8-10.8) K/mm3 Hgb 14.2 (12.0-15.0) g/dL Hct 43.4 (35.0-49.0) % Plt Count 155 (150-420) K/mm3 BMP 09/16/24 07:18 Sodium 140 Potassium 4.4 Chloride 102 Carbon Dioxide 31 BUN 22 H Creatinine 0.74 Glucose 109 H Calcium 9.5 Liver Function 09/16/24 Range/Units 07:18 Total Bilirubin 0.5 (0.00-1.00) mg/dL AST 23 (15-37) U/L ALT 10 L (14-59) U/L Alkaline Phosphatase 100 (46-116) U/L Albumin 3.1 L (3.4-5.0) g/dL Assessment and Plan Assessment and plan (1) Impaired ambulation: Code(s): R26.2 - Difficulty in walking, not elsewhere classified Status: Acute Assessment and Plan: * Post TIA * acute fracture, minimal grade 1 anteriorolisthesis of C3 over C4, mild degenerative changes. * Will need to be able to walk on own to return to [facility] * PT/OT (Swing) * Pain control as needed (2) Acute fracture: Code(s): T14.8XXA - Other injury of unspecified body region, initial encounter Status: Acute Assessment and Plan: * CT which did not show any acute fracture, minimal grade 1 anteriorolisthesis of C3 over C4, mild degenerative changes. * PT/OT * Pain control (3) Morbid obesity: Code(s): E66.01 - Morbid (severe) obesity due to excess calories Status: Acute Assessment and Plan: * encourage increased on physical activity and lifestyle modifications * BMI 43.9 * Diet exercise counseling done. (4) Schizophrenia: Code(s): F20.9 - Schizophrenia, unspecified Status: Acute Assessment and Plan: * Stable * Resumed home medications (5) History of hyperlipidemia: Code(s): Z86.39 - Personal history of other endocrine, nutritional and metabolic disease Status: Acute Assessment and Plan: * Resumed Atorvastatin (6) History of hypertension: Code(s): Z86.79 - Personal history of other diseases of the circulatory system Status: Acute Assessment and Plan: * Stable * Resumed Metoprolol * BP per unit protocol (7) History of hypothyroidism: Code(s): Z86.39 - Personal history of other endocrine, nutritional and metabolic disease Status: Acute Assessment and Plan: * resume patient's levothyroxine Plan Code status: Full code per patient PT/OT notes: SWING BED Disposition: patient was admitted to [facility] for further rehabilitation patient will need to be able to walk on her own to return back to [facility] living [facility]. Quality -Patient's previous records reviewed on admission -ER notes reviewed in detail on admission -discussed all findings and current treatment plan with patient/Family/POA -Consultations reviewed for recommendations -Patient's disposition for safe discharge discussed with bilingual case manager Dictation performed by [employer] ([place] direct speech recognition software, therefore home care companion variants and typographical errors may occur. Hospitalist MIPS Advance Care Plan I have confirmed that the patient's Advanced Care Plan is present, code status is documented, or surrogate decision maker is listed in patient medical record.: Yes Medication Reconciliation I have utilized all available resources to obtain, update and review the patients current medications (includes all prescriptions, OTC, herbals, can nabis, and nutritional supplements).: Yes The patient is not eligible for med reconciliation; the patient is in a emergent medical situation where delaying treatment would jeopardize the patients health.: No
[2024-09-16] MEDS: CHOLECALCIFEROL 1,000 UNITS TABLET 2000 UNITS PO (09:16)
[2024-09-16] MEDS: TOLNAFTATE 1% POWDER 45 GM BTL 1 APPLIC TOPICAL ×2 (09:16→21:07)
[2024-09-16] MEDS: TOPIRAMATE 25 MG TABLET 50 MG PO ×2 (09:16→21:00)
[2024-09-16] MEDS: DIVALPROEX SODIUM ER 500 MG TAB.24H PO ×2 (09:16→21:00)
[2024-09-16 09:17] VITALS: PULSE 88
[2024-09-16] MEDS: FAMOTIDINE 20 MG TABLET PO (09:17)
[2024-09-16] MEDS: METOPROLOL SUCCINATE EXT REL 50 MG TABCR PO (09:17)
[2024-09-16] MEDS: DULoxetine HCL 30 MG CAPSULE.DR PO (09:17)
[2024-09-16] MEDS: ASPIRIN 81 MG CHEWABLE TABLET PO (09:17)
[2024-09-16 11:54] LABS: Glucose Point of Care 116 mg/dl (65-105)
--- NOTE | 2024-09-16 14:22 | PHAR ---
verified pt.'s home med: (Trulicity [dulaglutide] 0.75mg/0.5ml injection Single Dose Pen). Inject 1 pen (0.75mg) subcutaneously every week (pt administers on )
--- NOTE | 2024-09-16 15:05 | PHAR ---
INVEGA SUSTENNA [palperidone palmitate) ER injection pre-filled syringe 234mg/1.5ml. Inject 234mg (1.5ml)intramuscularly every month (patient's next injection due 09/20/24)
[2024-09-16 16:00] VITALS: BP 131/76; PULSE 69; RESP 17; TEMP 36; O2SAT 92
[2024-09-16 17:05] LABS: Glucose Point of Care 119 mg/dl (65-105)
[2024-09-16] MEDS: BENZTROPINE MESYLATE 0.5 MG TABLET PO (21:00)
[2024-09-16] MEDS: ATORVASTATIN 10 MG TABLET 20 MG PO (21:00)
[2024-09-17] VITALS: BP 140/89; PULSE 65; RESP 17; TEMP 36.2; O2SAT 93
[2024-09-17 02:00] LABS: Glucose Point of Care 143 mg/dl (65-105)
[2024-09-17] MEDS: CARBIDOPA/LEVODOPA 25/100 MG TABLET 1 TABLET PO ×3 (05:24→21:37)
[2024-09-17] MEDS: LORazepam (*CRX) 1 MG TABLET PO ×3 (05:24→21:36)
[2024-09-17] MEDS: LEVOTHYROXINE SODIUM 100 MCG TABLET PO (05:24)
[2024-09-17 08:00] VITALS: BP 135/67; PULSE 70; RESP 18; TEMP 35.9; O2SAT 97
[2024-09-17 08:49] VITALS: PULSE 70
[2024-09-17] MEDS: CHOLECALCIFEROL 1,000 UNITS TABLET 2000 UNITS PO (08:49)
[2024-09-17] MEDS: METOPROLOL SUCCINATE EXT REL 50 MG TABCR PO (08:49)
[2024-09-17] MEDS: DULoxetine HCL 30 MG CAPSULE.DR PO (08:51)
[2024-09-17] MEDS: TOLNAFTATE 1% POWDER 45 GM BTL 1 APPLIC TOPICAL ×2 (08:52→21:37)
[2024-09-17] MEDS: DIVALPROEX SODIUM ER 500 MG TAB.24H PO ×2 (08:52→21:37)
[2024-09-17] MEDS: ASPIRIN 81 MG CHEWABLE TABLET PO (08:52)
[2024-09-17] MEDS: TOPIRAMATE 25 MG TABLET 50 MG PO ×2 (08:52→21:37)
[2024-09-17] MEDS: FAMOTIDINE 20 MG TABLET PO (08:52)
[2024-09-17 16:00] VITALS: BP 104/68; PULSE 67; RESP 20; TEMP 36.3; O2SAT 95
[2024-09-17 20:00] VITALS: PULSE 67; RESP 20; O2SAT 95
[2024-09-17] MEDS: BENZTROPINE MESYLATE 0.5 MG TABLET PO (21:36)
[2024-09-17] MEDS: ATORVASTATIN 10 MG TABLET 20 MG PO (21:37)
[2024-09-18] VITALS: BP 127/80; PULSE 68; RESP 18; TEMP 36.1; O2SAT 96
[2024-09-18] MEDS: CARBIDOPA/LEVODOPA 25/100 MG TABLET 1 TABLET PO ×3 (06:05→21:22)
[2024-09-18] MEDS: LORazepam (*CRX) 1 MG TABLET PO ×3 (06:05→21:23)
[2024-09-18] MEDS: LEVOTHYROXINE SODIUM 100 MCG TABLET PO (06:05)
[2024-09-18 08:00] VITALS: BP 111/58; PULSE 74; RESP 20; TEMP 36.1; O2SAT 94
[2024-09-18 09:40] VITALS: PULSE 74
[2024-09-18] MEDS: FAMOTIDINE 20 MG TABLET PO (09:40)
[2024-09-18] MEDS: TOPIRAMATE 25 MG TABLET 50 MG PO ×2 (09:40→21:21)
[2024-09-18] MEDS: CHOLECALCIFEROL 1,000 UNITS TABLET 2000 UNITS PO (09:40)
[2024-09-18] MEDS: ASPIRIN 81 MG CHEWABLE TABLET PO (09:40)
[2024-09-18] MEDS: DIVALPROEX SODIUM ER 500 MG TAB.24H PO ×2 (09:40→21:22)
[2024-09-18] MEDS: DULoxetine HCL 30 MG CAPSULE.DR PO (09:40)
[2024-09-18] MEDS: METOPROLOL SUCCINATE EXT REL 50 MG TABCR PO (09:40)
[2024-09-18] MEDS: TOLNAFTATE 1% POWDER 45 GM BTL 1 APPLIC TOPICAL ×2 (09:41→21:23)
[2024-09-18 16:00] VITALS: BP 137/77; PULSE 70; RESP 18; TEMP 35.7; O2SAT 95
[2024-09-18 20:00] VITALS: PULSE 70; RESP 18; O2SAT 95
[2024-09-18] MEDS: BENZTROPINE MESYLATE 0.5 MG TABLET PO (21:22)
[2024-09-18] MEDS: ATORVASTATIN 10 MG TABLET 20 MG PO (21:22)
[2024-09-19] VITALS: BP 123/75; PULSE 65; RESP 17; TEMP 36.1; O2SAT 95
[2024-09-19] MEDS: LEVOTHYROXINE SODIUM 100 MCG TABLET PO (05:33)
[2024-09-19] MEDS: CARBIDOPA/LEVODOPA 25/100 MG TABLET 1 TABLET PO ×3 (05:33→21:20)
[2024-09-19] MEDS: LORazepam (*CRX) 1 MG TABLET PO ×3 (05:33→21:19)
[2024-09-19 08:00] VITALS: BP 102/67; PULSE 70; RESP 18; TEMP 35.9; O2SAT 94
[2024-09-19] MEDS: polyethylene glycoL 3350 17 GM POWD.PACK PO (08:51)
[2024-09-19] MEDS: TOPIRAMATE 25 MG TABLET 50 MG PO ×2 (08:51→21:19)
[2024-09-19] MEDS: CHOLECALCIFEROL 1,000 UNITS TABLET 2000 UNITS PO (08:51)
[2024-09-19 08:52] VITALS: PULSE 70
[2024-09-19] MEDS: ASPIRIN 81 MG CHEWABLE TABLET PO (08:52)
[2024-09-19] MEDS: DOCUSATE SODIUM 100 MG CAPSULE PO ×2 (08:52→21:19)
[2024-09-19] MEDS: DIVALPROEX SODIUM ER 500 MG TAB.24H PO ×2 (08:52→21:19)
[2024-09-19] MEDS: METOPROLOL SUCCINATE EXT REL 50 MG TABCR PO (08:52)
[2024-09-19] MEDS: DULoxetine HCL 30 MG CAPSULE.DR PO (08:52)
[2024-09-19] MEDS: FAMOTIDINE 20 MG TABLET PO (08:52)
[2024-09-19] MEDS: TOLNAFTATE 1% POWDER 45 GM BTL 1 APPLIC TOPICAL ×2 (08:54→21:20)
[2024-09-19 16:00] VITALS: BP 113/70; PULSE 66; RESP 20; TEMP 35.9; O2SAT 96
[2024-09-19 20:00] VITALS: PULSE 66; RESP 20; O2SAT 96
[2024-09-19] MEDS: BENZTROPINE MESYLATE 0.5 MG TABLET PO (21:19)
[2024-09-19] MEDS: ATORVASTATIN 10 MG TABLET 20 MG PO (21:19)
[2024-09-20] VITALS: BP 112/68; PULSE 65; RESP 18; TEMP 36.1; O2SAT 96
[2024-09-20] MEDS: CARBIDOPA/LEVODOPA 25/100 MG TABLET 1 TABLET PO ×3 (05:41→21:18)
[2024-09-20] MEDS: LEVOTHYROXINE SODIUM 100 MCG TABLET PO (05:41)
[2024-09-20] MEDS: LORazepam (*CRX) 1 MG TABLET PO ×3 (05:41→21:16)
--- NOTE | 2024-09-20 06:31 | PC.NURSE ---
Latricia, nurse from [facility], called for update on patient. Latricia wants to remind staff that Radha will need to be completely independent to return. Will pass on to charge nurse and day shift nurse.
[2024-09-20 08:00] VITALS: BP 102/72; PULSE 72; RESP 18; TEMP 36.5; O2SAT 92
[2024-09-20] MEDS: INVEGA SUSTENNA IM (09:20)
[2024-09-20] MEDS: FAMOTIDINE 20 MG TABLET PO (09:20)
[2024-09-20] MEDS: [UNRECOGNIZED DRUG - OTHER] IM (09:20)
[2024-09-20] MEDS: TOPIRAMATE 25 MG TABLET 50 MG PO ×2 (09:21→21:16)
[2024-09-20] MEDS: DULoxetine HCL 30 MG CAPSULE.DR PO (09:22)
[2024-09-20] MEDS: polyethylene glycoL 3350 17 GM POWD.PACK PO (09:22)
[2024-09-20] MEDS: ASPIRIN 81 MG CHEWABLE TABLET PO (09:24)
[2024-09-20] MEDS: CHOLECALCIFEROL 1,000 UNITS TABLET 2000 UNITS PO (09:24)
[2024-09-20] MEDS: DIVALPROEX SODIUM ER 500 MG TAB.24H PO ×2 (09:24→21:00)
[2024-09-20 09:25] VITALS: PULSE 72
[2024-09-20] MEDS: DOCUSATE SODIUM 100 MG CAPSULE PO ×2 (09:25→21:16)
[2024-09-20] MEDS: METOPROLOL SUCCINATE EXT REL 50 MG TABCR PO (09:25)
[2024-09-20] MEDS: TOLNAFTATE 1% POWDER 45 GM BTL 1 APPLIC TOPICAL ×2 (09:26→21:18)
[2024-09-20 16:45] VITALS: BP 126/79; PULSE 75; RESP 16; TEMP 35.8; O2SAT 92
[2024-09-20] MEDS: ACETAMINOPHEN 325 MG TABLET 650 MG PO (17:48)
[2024-09-20] MEDS: BENZTROPINE MESYLATE 0.5 MG TABLET PO (21:16)
[2024-09-20] MEDS: ATORVASTATIN 10 MG TABLET 20 MG PO (21:16)
[2024-09-21] VITALS: BP 117/66; PULSE 80; RESP 18; TEMP 36.6; O2SAT 92
[2024-09-21] MEDS: ACETAMINOPHEN 325 MG TABLET 650 MG PO (01:06)
[2024-09-21] MEDS: LEVOTHYROXINE SODIUM 100 MCG TABLET PO (05:43)
[2024-09-21] MEDS: LORazepam (*CRX) 1 MG TABLET PO ×3 (05:43→21:42)
[2024-09-21] MEDS: CARBIDOPA/LEVODOPA 25/100 MG TABLET 1 TABLET PO ×3 (05:43→21:42)
[2024-09-21 08:00] VITALS: BP 100/67; PULSE 66; RESP 14; TEMP 36.4; O2SAT 94
[2024-09-21] MEDS: polyethylene glycoL 3350 17 GM POWD.PACK PO (10:08)
[2024-09-21 10:09] VITALS: PULSE 66
[2024-09-21] MEDS: METOPROLOL SUCCINATE EXT REL 50 MG TABCR PO (10:09)
[2024-09-21] MEDS: CHOLECALCIFEROL 1,000 UNITS TABLET 2000 UNITS PO (10:09)
[2024-09-21] MEDS: ASPIRIN 81 MG CHEWABLE TABLET PO (10:10)
[2024-09-21] MEDS: DULoxetine HCL 30 MG CAPSULE.DR PO (10:10)
[2024-09-21] MEDS: TOPIRAMATE 25 MG TABLET 50 MG PO ×2 (10:10→21:40)
[2024-09-21] MEDS: DIVALPROEX SODIUM ER 500 MG TAB.24H PO ×2 (10:11→21:42)
[2024-09-21] MEDS: FAMOTIDINE 20 MG TABLET PO (10:12)
[2024-09-21] MEDS: DOCUSATE SODIUM 100 MG CAPSULE PO ×2 (10:12→21:42)
[2024-09-21 16:00] VITALS: BP 120/68; PULSE 75; RESP 15; TEMP 36.4; O2SAT 96
--- NOTE | 2024-09-21 16:47 | PM.EVENT ---
Event Note Event Note Event Note: Patient is progressing well with therapy but has continued with slight faults in gait mechanics and is at increased risks for falls. Because of this she would benefit from home health PT and OT consults at discharge.
--- NOTE | 2024-09-21 19:20 | PC.NURSE ---
1700 Patient resting in bed. Nurse assisted patient to bathroom then into chair for supper. Patient fed self to supper.
--- NOTE | 2024-09-21 19:25 | PC.NURSE ---
1924 Patient asked to go to bathroom. Nurse observed patient had incont episode. Patient sat on commode and gave self bath then new clothes put on. Patient assisted to bed.
[2024-09-21] MEDS: ATORVASTATIN 10 MG TABLET 20 MG PO (21:42)
[2024-09-21] MEDS: TOLNAFTATE 1% POWDER 45 GM BTL 1 APPLIC TOPICAL (21:52)
[2024-09-21] MEDS: BENZTROPINE MESYLATE 0.5 MG TABLET PO (21:52)
[2024-09-22] VITALS: BP 133/74; PULSE 68; RESP 18; TEMP 36.4; O2SAT 95
[2024-09-22] MEDS: LEVOTHYROXINE SODIUM 100 MCG TABLET PO (05:55)
[2024-09-22] MEDS: CARBIDOPA/LEVODOPA 25/100 MG TABLET 1 TABLET PO (05:55)
[2024-09-22] MEDS: LORazepam (*CRX) 1 MG TABLET PO (05:56)
[2024-09-22 08:00] VITALS: BP 114/74; PULSE 74; RESP 18; TEMP 36.1; O2SAT 93
[2024-09-22] MEDS: polyethylene glycoL 3350 17 GM POWD.PACK PO (08:43)
[2024-09-22] MEDS: ASPIRIN 81 MG CHEWABLE TABLET PO (08:43)
[2024-09-22] MEDS: CHOLECALCIFEROL 1,000 UNITS TABLET 2000 UNITS PO (08:43)
[2024-09-22] MEDS: DOCUSATE SODIUM 100 MG CAPSULE PO (08:43)
[2024-09-22] MEDS: DIVALPROEX SODIUM ER 500 MG TAB.24H PO (08:43)
[2024-09-22 08:44] VITALS: PULSE 78
[2024-09-22] MEDS: FAMOTIDINE 20 MG TABLET PO (08:44)
[2024-09-22] MEDS: METOPROLOL SUCCINATE EXT REL 50 MG TABCR PO (08:44)
[2024-09-22] MEDS: DULoxetine HCL 30 MG CAPSULE.DR PO (08:44)
[2024-09-22] MEDS: TOLNAFTATE 1% POWDER 45 GM BTL 1 APPLIC TOPICAL (08:44)
[2024-09-22] MEDS: TOPIRAMATE 25 MG TABLET 50 MG PO (08:44)
[2024-09-22] MEDS: DULAGLUTIDE 1 EACH SUB-Q (08:51)
--- NOTE | 2024-09-22 09:45 | P.DS_ITS ---
DS: Admitting Diagnosis Discharge Date 09/22 Admitting Diagnosis weakness DS: Discharge Diagnosis Discharge Diagnosis (1) Impaired ambulation: Code(s): R26.2 - Difficulty in walking, not elsewhere classified Status: Acute Assessment and Plan: * Post TIA * acute fracture, minimal grade 1 anteriorolisthesis of C3 over C4, mild degenerative changes. * Will need to be able to walk on own to return to [facility] * PT/OT (Swing) * Pain control as needed (2) Acute fracture: Code(s): T14.8XXA - Other injury of unspecified body region, initial encounter Status: Acute Assessment and Plan: * CT which did not show any acute fracture, minimal grade 1 anteriorolisthesis of C3 over C4, mild degenerative changes. * PT/OT * Pain control (3) Morbid obesity: Code(s): E66.01 - Morbid (severe) obesity due to excess calories Status: Acute Assessment and Plan: * encourage increased on physical activity and lifestyle modifications * BMI 43.9 * Diet exercise counseling done. (4) Schizophrenia: Code(s): F20.9 - Schizophrenia, unspecified Status: Acute Assessment and Plan: * Stable * Resumed home medications (5) History of hyperlipidemia: Code(s): Z86.39 - Personal history of other endocrine, nutritional and metabolic disease Status: Acute Assessment and Plan: * Resumed Atorvastatin (6) History of hypertension: Code(s): Z86.79 - Personal history of other diseases of the circulatory system Status: Acute Assessment and Plan: * Stable * Resumed Metoprolol * BP per unit protocol (7) History of hypothyroidism: Code(s): Z86.39 - Personal history of other endocrine, nutritional and metabolic disease Status: Acute Assessment and Plan: * resume patient's levothyroxine Plan Code status: Full code per patient PT/OT notes: SWING BED Disposition: patient was admitted to [facility] for further rehabilitation patient will need to be able to walk on her own to return back to [facility] living [facility]. DS: Summary Hospital Course Reason for hospitalization: weakness Hospital Course: Patient is a 63-year-old female who was admitted to [facility] for continued physical and occupational therapy/ rehabilitation following admission to [facility] for generalized weakness, slurring of speech, and acute fracture of anteriorolisthesis of C3 over C4. patient is a resident of [facility] who has a history of schizophrenia but compliant on her medications due to her current acute fracture she will need rehabilitation to return to [place] was be able to walk prior to returning. During patient's admission to [facility] she was ruled out for acute stroke brain MRI and CT showed no abnormalities and neurology signed off. Patient was then transferred to [facility] for further PT/OT with pain control. patient is stable and ready to discharge home today with home health therapy for continued weakness and impaired balance. She will benefit from the use of a wheeled walker given gait instability. Overall she has done well and was discharged in stable condition. She has been asked to follow up with her PCP in 1 week given her recent hospitalization. Time Spent with Patient Time attestation: Total time spent providing and/or coordinating discharge services:65 Exam Narrative: General: appears comfortable, in no acute distress Respiratory: breathing is unlabored with even chest rise/fall, lungs are clear without wheezing, rhonchi, and crackles Cardiovascular: Rate and rhythm regular, normal s1s2, no murmur Abdomen: Soft, round, non-tender, active bowel sounds Extremities: No cyanosis, edema, clubbing. Pulses 2/2 Neuro: A&O x 4, Cognitive delay Skin: Warm, dry, intact Discharge Plan Discharge Attending physician on discharge: Alirio Hester Discharging Clinician: Celestina Alvarado Anticipated Discharge Date/Time: 09/22/24 08:28 Patient Disposition: Other Activity: may shower Diet: regular Discharge Instructions: Per Care Coordination: [facility] will follow you at discharge for physical therapy and occupational therapy. They will give you a call to schedule early next week. Their phone number is [phone]. Nursing please fax discharge summary to [phone]. You are being discharged today from the swing bed program at [facility]. PT and OT home health therapy has been ordered to continue at discharge. Please continue to ambulate with use of her wheeled walker at all times. please continue to take her medications as prescribed. You should follow-up with your primary care provider in the next 1 week given your recent hospitalization. Patient Instructions: Antibiotic Form, Paliperidone (By injection), Dulaglutide (By injection), Fall Prevention for Older Adults (DC), Weakness (DC) Stand Alone Forms: General Discharge Information Follow-up/Referrals: Tino Pan MD [Primary Care Provider] - Call for Appointment Discharge Medications: Continued atorvastatin 20 mg tablet 20 mg PO HS benztropine 0.5 mg tablet 0.5 mg PO HS metoprolol succinate 50 mg tablet extended release 24 hr 50 mg PO DAILY levothyroxine 100 mcg tablet 100 mcg PO DAILY famotidine 20 mg tablet 20 mg PO DAILY divalproex 500 mg tablet extended release 24 hr 500 mg PO BID metronidazole 0.75 % cream 1 applic TOPICAL DAILY Rx Instructions: FOR FACE lorazepam 1 mg tablet 1 mg PO TID carbidopa-levodopa 25-100 mg tablet 25 - 100 tablet PO TID topiramate 50 mg tablet 50 mg PO BID duloxetine 30 mg capsule,delayed release(DR/EC) 30 mg PO DAILY cholecalciferol (vitamin D3) 50 mcg (2,000 unit) tablet 50 mcg PO DAILY Trulicity 0.75 mg/0.5 mL pen injector 0.75 mg SUBCUT WEEKLY Rx Instructions: Takes on . Patient's own med Invega Sustenna 234 mg/1.5 mL Syringe 234 mg IM Q30D Rx Instructions: Patient's own. Next due on 09/20/24 aspirin [Children's Aspirin] 81 mg Tablet,Chewable 81 mg PO DAILY@0800 Qty: 30 0RF Date of admission: 09/15/24 18:46 Primary Care Provider: Tino Pan Admitting Provider: Alirio Hester Attending physician on admission: Celestina Alvarado Condition: Improved Hospitalist MIPS Heart Failure (Exclusion) Patient has history of Heart Transplant or Left Ventricular Assistive Device?: No IF YES, STOP HERE Heart Failure (Qualifier) Patient has current or prior documentation of LVEF less than or equal to 40%, or mod/servere depressed LVSF?: No IF NO, STOP HERE
--- NOTE | 2024-09-22 11:51 | PC.NURSE ---
1115 brother here for her dc. dc orders went over. both vocalize an understanding. brother voices concerns that she may need more help than pt/ot help. patient does not want to go to any other faculty
--- NOTE | 2024-09-22 14:30 | PC.NURSE ---
Spoke to Latricia at [facility] and verified discharge medications and when given last
== END 2024-09-22 11:15 | disposition home or self-care (01) | DRG 560 ==
PROVIDERS: Nurse Practitioner Family; Admitting Provider Internal Medicine; PCP Internal Medicine; Visit Provider Nurse Practitioner Acute Care
DX: S12.200D Unspecified displaced fracture of third cervical vertebra, subsequent encounter for fracture with routine healing (principal); Z68.41 Body mass index [BMI] 40.0-44.9, adult; S12.300D Unspecified displaced fracture of fourth cervical vertebra, subsequent encounter for fracture with routine healing; R26.2 Difficulty in walking, not elsewhere classified; I10 Essential (primary) hypertension; E78.5 Hyperlipidemia, unspecified; E66.01 Morbid (severe) obesity due to excess calories; E03.9 Hypothyroidism, unspecified; F20.9 Schizophrenia, unspecified; Z87.891 Personal history of nicotine dependence; Z79.82 Long term (current) use of aspirin
CPT/HCPCS: 36415; 80053; 82948; 85025; 97110; 97161; 97165; 97530; 97535; A9270

== ENCOUNTER 2025-08-07 15:23 | Emergency (ER) | payer OTHER, SELFPAY ==
--- OUTSIDE RECORDS SUMMARY | 2024-07-14 10:46 | XMS_ITS | Continuity of Care Document ---
Author Organization [facility] Address [address] [place] [address] Phone Care Team Providers Care Sales Management Intern Name Role Phone Jn Ley MD Unavailable Unavailable Allergies, Adverse Reactions, Alerts Substance Reaction Status Criticality hydrocodone Active No Information Medications Medication Instructions Dosage Effective Dates (start - stop) Status Comments metoprolol succinate ER 50 mg tablet,extended release 24 hr take 1 tablet by oral route every day 50 MG - Active Pepcid 20 mg tablet take 1 tablet by oral route every day 20 MG - Active Sinemet 25 mg-100 mg tablet take 1 tablet by oral route 3 times every day 1.00 tablet - Active Synthroid 100 mcg tablet take 1 tablet by oral route every day 100 MCG - Active Lipitor 20 mg tablet take 1 Tablet by oral route every day 20 MG - Active Invega Sustenna 117 mg/0.75 mL intramuscular syringe inject 0.75 milliliter by intramuscular route every month 117 MG - Active Topamax 25 mg tablet take 1 Tablet by oral route 2 times every day 25 MG - Active Depakote 500 mg tablet,delayed release take 1 tablet by oral route 2 times every day 500 MG - Active Ativan 1 mg tablet take 1 tablet by oral route 3 times every day as needed 1 MG - Active Procedures Procedure Date OFFICE/OUTPATIENT VISIT, EST OFFICE/OUTPATIENT VISIT, EST PREV VISIT, EST, AGE 40-64 OFFICE/OUTPATIENT VISIT, EST OFFICE/OUTPATIENT VISIT, EST OFFICE/OUTPATIENT VISIT, EST OFFICE/OUTPATIENT VISIT, EST OFFICE/OUTPATIENT VISIT, EST OFFICE/OUTPATIENT VISIT, EST PREV VISIT, EST, AGE 40-64 OFFICE/OUTPATIENT VISIT, EST PPPS, subseq visit OFFICE/OUTPATIENT VISIT, EST OFFICE/OUTPATIENT VISIT, EST OFFICE/OUTPATIENT VISIT, EST OFFICE/OUTPATIENT VISIT, EST PPPS, subseq visit OFFICE/OUTPATIENT VISIT, EST OFFICE/OUTPATIENT VISIT, EST OFFICE/OUTPATIENT VISIT, EST OFFICE/OUTPATIENT VISIT, EST OFFICE/OUTPATIENT VISIT, EST PPPS, subseq visit OFFICE/OUTPATIENT VISIT, EST OFFICE/OUTPATIENT VISIT, EST OFFICE/OUTPATIENT VISIT, EST OFFICE/OUTPATIENT VISIT, EST OFFICE/OUTPATIENT VISIT, EST OFFICE/OUTPATIENT VISIT, EST PPPS, initial visit OFFICE/OUTPATIENT VISIT, NEW Advance Directives Directive Yes / No Effective Date File Name No Information Encounters Encounter Description Practice Location Reason(s) For Visit Diagnoses Date Provider Providers Copied on Encounter [facility], [address] [place], [place], [address], tel:[phone] [facility] No Information [address] [place], [address] , [place]. tel:[phone] OFFICE/OUTPA TIENT VISIT, EST [facility], [address] [place], [place], [address], tel:[phone] [facility] thyroid1 (chief complaint) HLP (chief complaint) GERD1 (chief complaint) tremor1 (chief complaint) HTN (chief complaint) edema1 (chief complaint) Essential (primary) hypertensionMixed hyperlipidemiaHypot hyroidismEdemaTremo rGERD w/o esophagitisFatty liver [address] [facility] [address], [place], [place], [address] , [place]. tel:[phone] OFFICE/OUTPA TIENT VISIT, EST [facility] [place], [address] [place], [address], [place] [phone] [facility] [place] thyroid1 (chief complaint) HLP (chief complaint) incontinen ce1 (chief complaint) pre-DM (chief complaint) edema1 (chief complaint) HypothyroidismEssen tial (primary) hypertensionHypergl ycemiaEdemaMixed hyperlipidemiaMixed incontinence [address], [place], [place], [address] , [place]. tel:[phone] PREV VISIT, EST, AGE 40-64 [facility] [place], [address], [place], [place], [address], [place] [phone] [facility] [place] physical (chief complaint) Encounter for general adult medical exam w abnormal findingsEdemaAbnorm al weight gainHypothyroidismG ERD w/o esophagitisEssentia l (primary) hypertensionTremorM ixed hyperlipidemiaHyper glycemia Fe [address], [address], [place], [place], [address] , [place]. tel:[phone] OFFICE/OUTPA TIENT VISIT, EST [facility] [place], [address] [place], [address], [place] [phone] [facility] [place] hypothyroi dism1 (chief complaint) tremor1 (chief complaint) GERD1 (chief complaint) HLP (chief complaint) HTN (chief complaint) Mixed hyperlipidemiaGERD w/o esophagitisMetaboli c syndromeHypothyroid ismTremorEssential (primary) hypertension [address], [place], [place], [address] , [place]. tel:[phone] OFFICE/OUTPA TIENT VISIT, EST [facility] [place], [address], [place], [place], [address], [place] tel:[phone] [facility] [place] hypothyroi dism1 (chief complaint) HLP (chief complaint) Pre-DM (chief complaint) HypothyroidismMixed hyperlipidemiaMetab olic syndromeDehydration [address], [place], [place], [address] , [place]. tel:[phone] OFFICE/OUTPA TIENT VISIT, [facility], [address], [place], [place], [address], [place] tel:[phone] [facility] [place] DM (chief complaint) weight1 (chief complaint) thyroid1 (chief complaint) HypothyroidismMetab olic syndromeAbnormal weight gainDiarrhea [address], [place], [place], [address] , [place]. tel:[phone] OFFICE/OUTPA TIENT VISIT, [facility], [address], [place], [place], [address], [place] tel:[phone] [facility] [place] glucose1 (chief complaint) tobacco1 (chief complaint) HLP (chief complaint) hypothyroi dism1 (chief complaint) Mixed hyperlipidemiaHypot hyroidismMetabolic syndromeTobacco use [address], [place], [place], [address] , [place]. tel:[phone] OFFICE/OUTPA TIENT VISIT, [facility], [address] [place], [address], [place] tel:[phone] [facility] [place] tremor1 (chief complaint) GERD (chief complaint) GERD1 (chief complaint) HLP (chief complaint) thyroid1 (chief complaint) HTN (chief complaint) Essential (primary) hypertensionHypothy roidismMixed hyperlipidemiaGERD w/o esophagitisTremor [address], [place], [place], [address] , [place]. tel:[phone] PREV VISIT, EST, AGE 40-64 [facility] [place], [address], [place], [place], [address], [place] [phone] [facility] physical (chief complaint) Encounter for general adult medical exam w abnormal findingsEssential (primary) hypertensionGERD w/o esophagitisHypothyr oidismTremorMixed hyperlipidemiaMigra ine without aura, not intractable, without status migrainosus [address], [place], [place], [address] , [place]. tel:[phone] OFFICE/OUTPA TIENT VISIT, EST [facility] [place], [address], [place], [place], [address], [place] [phone] [facility] [place] physical (chief complaint) Encounter for general adult medical exam w abnormal findingsHypothyroid ismMixed hyperlipidemiaEssen tial (primary) hypertensionTremorH ematuriaGERD w/o esophagitisPain in unspecified knee [address], [place], [place], [address] , [place]. tel:[phone] OFFICE/OUTPA TIENT VISIT, EST [facility] [place], [address] [place], [address], [place] [phone] [facility] [place] renal1 (chief complaint) glucose1 (chief complaint) HLP (chief complaint) thyroid1 (chief complaint) tremor1 (chief complaint) HTN (chief complaint) Essential (primary) hypertensionHyperli pidemiaTremorGERD w/o esophagitisHypergly cemiaRenal diseaseHypothyroidi smHematuriaVitamin D deficiency, unspecifiedEdema [address], [place], [place], [address] , [place]. tel:[phone] OFFICE/OUTPA TIENT VISIT, EST [facility] [place], [address], [place], [place], [address], [place] tel:[phone] [facility] [place] hypothyroi dism1 (chief complaint) tremor1 (chief complaint) HLP (chief complaint) GERD1 (chief complaint) fatty liver1 (chief complaint) GERD w/o esophagitisHematuri aHyperlipidemiaHypo thyroidismTremorEss ential (primary) hypertensionFatty liver May- [address], [place], [place], [address] , [place]. tel:[phone] OFFICE/OUTPA TIENT VISIT, [facility], [address], [place], [place], [address], [place] tel:[phone] [facility] [place] abd pain1 (chief complaint) Abdominal painHematuria Feb- [address], [place], [place], [address] , [place]. tel:[phone] OFFICE/OUTPA TIENT VISIT, [facility], [address], [place], [place], [address], [place] tel:[phone] [facility] [place] physical (chief complaint) Encounter for general adult medical exam w abnormal findingsUrge incontinenceHypothy roidismEssential (primary) hypertensionHyperli pidemiaTremorGERD w/o esophagitis [address], [place], [place], [address] , [place]. [phone] OFFICE/OUTPA TIENT VISIT, [facility], [address], [place], [place], [address], [place] [phone] [facility] [place] hematuria1 (chief complaint) glucose1 (chief complaint) HLP (chief complaint) tobacco1 (chief complaint) HematuriaHyperlipid emiaHyperglycemiaHe morrhoidTobacco use Jul-3 [address], [address], [place], [place], [address] , [place]. tel: [phone] OFFICE/OUTPA TIENT VISIT, [facility], [address] [place] [place], [address], [place] tel:[phone] [facility] [place] HLP (chief complaint) GERD1 (chief complaint) hypothyroi dism1 (chief complaint) tremor1 (chief complaint) tobacco1 (chief complaint) HyperlipidemiaGERD w/o esophagitisEssentia l (primary) hypertensionHypothy roidismTobacco useTremor Apr- 4-202 [address], [place], [place], [address] , [place]. [phone] Referring Provider: [address], [place], [place], [address]. tel:[phone] OFFICE/OUTPA TIENT VISIT, [facility], [address], [place], [place], [address], [place] tel:[phone] [facility] [place] hypothyroi dism1 (chief complaint) GERD1 (chief complaint) tremor1 (chief complaint) HTN (chief complaint) HLP (chief complaint) HypothyroidismEssen tial (primary) hypertensionTremorH yperlipidemiaGERD w/o esophagitis Nov-3 0-[address], [place], [place], [address] , [place]. tel:[phone] Referring Provider: Stephanie [address], [place], [place], [address]. tel:[phone] OFFICE/OUTPA TIENT VISIT, [facility], [address], [place], [place], [address], [place] tel:[phone] [facility] [place] blood1 (chief complaint) thyroid (chief complaint) Hypertensi on 1 (chief complaint) Abdominal painUrinary frequencyHematuriaH ypothyroidismEssent ial (primary) hypertension [address], [place], [place], [address] , [place]. tel:[phone] Referring Provider: Stephanie [address], [place], [place], [address]. tel:[phone] OFFICE/OUTPA TIENT VISIT, [facility], [address], [place], [place], [address], [place] tel:[phone] [facility] [place] Physical (chief complaint) Encounter for general adult medical exam w abnormal findingsHyperlipide miaGERD w/o esophagitisHypothyr oidismEssential (primary) hypertensionTremor [address], [place], [place], [address] , [place]. tel:[phone] Referring Provider: Stephanie [address], [place], [place], [address]. tel:[phone] OFFICE/OUTPA TIENT VISIT, [facility], [address], [place], [place], [address], [place] tel:[phone] [facility] [place] clearance (chief complaint) Pain in left kneePrimary OA of left knee [address], [place], [place], [address] , [place]. tel:[phone] Referring Provider: [address], [place], [place], [address]. tel:[phone] OFFICE/OUTPA TIENT VISIT, [facility], [address], [place], [place], [address], [place] tel:[phone] [facility] [place] thyroid (chief complaint) tremor1 (chief complaint) GERD1 (chief complaint) HTN (chief complaint) HLP (chief complaint) Essential (primary) hypertensionGERD w/o esophagitisHyperlip idemiaHypothyroidis mTremor [address], [place], [place], [address] , [place]. tel:[phone] Referring Provider: Stephanie Past[address], [place], [place], [address]. tel:[phone] OFFICE/OUTPA TIENT VISIT, [facility], [address], [place], [place], [address], [place] tel:[phone] [facility] [place] knee pain1 (chief complaint) thyroid (chief complaint) tremor1 (chief complaint) GERD1 (chief complaint) HTN (chief complaint) HLP1 (chief complaint) Essential (primary) hypertensionTremorG ERD w/o esophagitisHyperlip idemiaPresence of right artificial knee jointHypothyroidism [address], [place], [place], [address] , [place]. tel:[phone] Referring Provider: Stephanie Past[address], [place], [place], [address]. tel:[phone] OFFICE/OUTPA TIENT VISIT, [facility], [address] [place], [address], [place] tel:[phone] [facility] [place] knee1 (chief complaint) HTn. (chief complaint) HLP (chief complaint) HyperlipidemiaEssen tial (primary) hypertensionPain in unspecified knee [address], [place], [place], [address] , [place]. tel:[phone] Referring Provider: Stephanie Pastor [facility], [place], [place], [address]. tel:[phone] OFFICE/OUTPA TIENT VISIT, [facility], [address] [place] [address] [address] [place], [address], [place] tel:[phone] [facility] [place] TG (chief complaint) Tobacco1 (chief complaint) Osteopenia 1 (chief complaint) knee pain (chief complaint) knee pani1 (chief complaint) HyperlipidemiaRenal diseaseProteinuriaO ther specified disorder of bone densityPain in unspecified knee [address], [place], [place], [address] , [place]. tel:[phone] Referring Provider: Stephanie Pastor [facility] [address], [place], [place], [address]. tel:[phone] OFFICE/OUTPA TIENT VISIT, [facility] [place], [address], [place], [place], [address], [place] tel:[phone] [facility] physical (chief complaint) Encounter for general adult medical exam w abnormal findingsHypothyroid ismEssential (primary) hypertensionTremorG ERD w/o esophagitisHyperlip idemiaOveractive bladder [address], [address] [place], [address] , [place]. tel:[phone] Referring Provider: Jn Lye [address], [place], [place], [address]. tel:[phone] Family History Family Member Type Diagnosis Age At Onset No Information Payers Payer name Insurance type Covered libertarian ID Authoriza tion(s) No Information Social History Type Description Quantity Date Captured Comments Alcohol Use Details Unknown Caffeine Use Details Unknown Tobacco Use Status No Information Smoking Status No Information Sex Female Chief Complaint And Reason For Visit No Information Plan Of Treatment Date Type Action Status Goal Tobacco cessation counseling completed Goal Tobacco cessation counseling completed Goal Special diet education compl eted Goal Tobacco cessation counseling completed Goal Tobacco cessation counseling completed Goal Special diet education compl eted Goal Special diet education compl eted Goal Tobacco cessation counseling completed Goal Special diet education compl eted Goal Special diet education compl eted Goal Special diet education compl eted Goal Special diet education compl eted Referral Ordered: US EXAM, ABDOM, COMPLETE ordered Referral Ordered: Physical Therapy (related to Edema) ordered Referral Referred To: Physical Therapy Ordered: Referrals: Physical Therapy. Evaluate and treat ordered Referral Referred To: Agapito Antony [address] [place] [address], [phone] Ordered: Referrals: Agapito Antony. Evaluate and treat ordered Referral Ordered: US THYROID ordered Referral Referred To: Hossein Hernandez [address] [place], [phone] Ordered: Referrals: Hossein Hernandez. Evaluate and treat ordered Referral Ordered: CT ABDOMEN&PELVIS W/CONTRAST ordered Referral Ordered: CT ABDOMEN W/O DYE ordered Referral Ordered: Jez Tate -[facility] : Internal Medicine : Cardiovascular Disease (related to Pain in unspecified knee) ordered Referral Referred To: Jez Tate [address] [place], [place] [phone] Ordered: Referrals: [facility] : Internal Medicine : Cardiovascular Disease. Jez Tate. Evaluate and treat ordered Referral Ordered: Reid Granger -[facility] : Orthopaedic Surgery (related to Pain in unspecified knee) ordered Referral Referred To: Reid Granger [address] [place] [address] [address] [place], [place] [id number] Ordered: Referrals: [facility] : Orthopaedic Surgery. Reid Granger. Evaluate and treat ordered Referral Ordered: ANEL COOK -[facility] : Surgery (related to Encntr for general adult medical exam w/o abnormal findings) ordered Referral Ordered: CT THORAX W/O DYE ordered Referral Referred To: ANEL COOK [address] [place], [place], [phone] Ordered: Referrals: [facility] : Surgery. ANEL COOK. Evaluate and treat ordered Referral Ordered: DXA BONE DENSITY, AXIAL ordered History Of Present Illness Encounter Date Complaint History Of Prese nt Illness thyroid1 Pt has hypothyro idism Pt takes synthroid and tsh ok Pt denies any dysphagia or neck pain HLP Pt has HLP Pt ta kes lipitor Pt denies any myalgia her lipid profile is ok GERD1 Pt has chronic m ild gERD Pt doing well with pepcid. Pt needs refill tremor1 Pt has mild esse ntial tremor and she takes sinemet and doing ok. Pt denies any other issues HTN Pt has HTN pt ta kes metoprolol and her bp is stable edema1 Pt has chronic L E edema due to lymphedema .Pt failed diuretics Pt never followed up with lymphedema clinic. She had abd ultrasound done which showed fatty liver only thyroid1 Pt has hypothyro idism Pt takes synthroid and tsh ok Pt denies any dysphagia or neck pain HLP Pt has HLP Pt ta kes lipitor Pt denies any myalgia her lipid profile is ok incontinence1 Pt has urine inc ontinence. Pt needs pullups and pads and gloves paper completed pre-DM Pt is pre-diabet ic Her A1c is borderline high Pt denies any polyuria ,polydipsia Pt could not tolerate metformin. edema1 Pt has bilateral lymphedema pt took lasix which did help and she no longer wants to take lasix. her CT is denied by insurance Pt denies any abd pain physical Pt needs annual physical. Pt has HTN. Pt takes metoprolol and her BP is stable. Pt has low thyroid. Pt takes synthroid. Pt has GERD and she takes pepcid and her symptoms are well controlled. Pt has HLP. Pt takes lipitor. Pt denies any myalgia. Pt has chronic tremor. Pt takes sinemet and symptoms are well controlled. Pt also has chronic anxiety and depression with bipolar disorder Pt takes multiple psychiatry meds. Pt sees psychiatrist. Pt is on invega, depakote and ativan PRN. pt has chronic migraine headache intermittent for years and she is on topamax per psychiatry with good headache control. Pt denies any recurrent headache while on topamax. Pt has mild insulin resistance. Pt could not tolerate metformin due to diarrhea. Pt denies any polyuria, polydipsia. Pt went to ER two days ago due to leg swelling and also pain. Pt notices bilateral leg swelling and painful to touch gradually getting worse during the last 3 months Pt denies any sob Pt denies any abdominal mass . Pt denies any claudication Pt denies any paresthesia. pt denies any cold extremity or toe discoloration. She told me ER did not do anything including lab or any imaging study and sent her home. She denies any PND or orthopnea hypothyroidism1 Pt has hypothyro idism. Pt takes synthroid Pt needs synthroid refilled pT denies any dysphagia or neck pain. Her TSH is ok tremor1 Pt has mild esse ntial tremor and she takes sinemet and doing ok. Pt denies any other issues GERD1 Pt has chronic m ild gERD Pt doing well with pepcid. Pt needs refill HLP Pt has HLP .Pt t akes lipitor and doing ok Pt denies any myalgia HTN Pt has HTN. Pt t akes metoprolol and his bp is stable. hypothyroidism1 Pt has hypothyro idism. Pt takes synthroid and her TSh is ok .TPO and TSI are ok. Thyroid ultrasound ok Pt denies any dysphagia or neck pain HLP Pt has HLP Pt ta kes lipitor. Pt denies any myalgia Her Tg is borderline high Pre-DM Pt has mildly hi gh A1c her glucose is ok. Pt has mild insulin resistance .Pt denies any polyuria, polydipsia. weight1 pt is morbidly o bese Pt failed metformin Pt has hard time losing weight thyroid1 Pt has hypothyro idism. pt denies any dysphagia or neck pain. Pt takes synthroid. DM Pt has borderlin e DM and she started metformin recently but she has been having uncontrolled non-bloody diarrhea with metformin pt stopped metformin last month Pt denies any abd pain glucose1 Pt had lab done recently by psychiatrist and she was told that her glucose was high. her psychiatrist told her that she should discuss with me regarding Dm medication to lower her glucose. Pt denies any polyuria polydipsia Pt does drink a lot of diet coke. her lab showed elevated A1c but her glucose is around 96. tobacco1 Pt is on nicoder m patch and she has not smoked for 4 weeks. HLP Pt takes lipitor Pt denies any myalgia. her lipid profile is ok hypothyroidism1 Pt has low thyro id. Pt denies any dysphagia or neck pain. Pt takes synthroid and her TSH is ok tremor1 Pt has parkinson tremor. Pt takes sinemet and doing ok. Pt needs refill GERD GERD Pt has GERD. Pt takes pepcid and doing ok Pt denies any nausea, vomiting, abd pain, weight loss HLP Pt has HLP ,Pt t akes lipitor. Pt denies any myalgia thyroid1 Pt has hypothyro idism Pt takes synthroid Pt denies any dysphagia or neck pain HTN P has HTN Pt nancy e metoprolol and her bp is ok. Pt denies any chest pain, sob or dizziness physical Pt needs annual physical. Pt has HTN. Pt takes metoprolol and her BP is stable. Pt has low thyroid. Pt takes synthroid. Pt has GERD and she takes pepcid and her symptoms are well controlled. Pt has HLP. Pt takes lipitor. Pt denies any myalgia. Pt has chronic tremor. Pt takes sinemet and symptoms are well controlled. Pt also has chronic anxiety and depression with bipolar disorder Pt takes multiple psychiatry meds. Pt sees psychiatrist. Pt is on invega, depakote and ativan PRN. pt has chronic migraine headache intermittent for years and she is on topamax per psychiatry with good headache control. Pt denies any recurrent headache while on topamax. Pt wants to try nicoderm patch for smoking cessation. physical Pt needs annual physical. Pt has HTN. Pt takes metoprolol and her BP is stable. Pt has low thyroid. Pt takes synthroid. Pt has GERD and she takes pepcid and her symptoms are well controlled. Pt has HLP. Pt takes lipitor. Pt denies any myalgia. Pt has chronic tremor. Pt takes sinemet and symptoms are well controlled. Pt also has chronic anxiety and depression with bipolar disorder Pt takes multiple psychiatry meds. Pt sees psychiatrist. Pt is off latuda and she is on invega now. pt reports migraine headache intermittent for years and she notices it daily. pt reports throbbing headache. Pt was started on topamax by psychiatrist one month ago but has not helped. Pt also has bilateral knee pain Pt denies any injury .Pt denies any knee swelling. Pt denies any knee redness or warmth. Pt also c/o thyroid swelling around the front of the neck with some dysphagia. Pt c.o pain around thyroid area. renal Pt has borderlin e stable renal function Pt has normal UO. Pt denies any flank pain. Pt has history of hematuria. Lab missed UA. Pt had negative CT and cytology Pt denies any urinary symptoms glucose Pt has borderlin e high glucose Pt denies any polyuria, polydipsia HLP Pt has HLP Pt ta kes lipitor Pt denies any myalgia thyroid Pt has hypothyro idism. Pt takes synthroid Pt denies any dysphagia. Her TSh is ok tremor Pt has mild trem or. pt takes sinemet and doing ok . HTN Pt has HTN Pt ta kes metoprolol and her bp is ok hypothyroidism1 Pt has low thyro id Pt takes synthroid Pt denies any dysphagia or neck pain tremor Pt has mild trem or. Pt takes sinemet and doing ok Pt denies any headache HLP Pt has HLP. Pt t akjosé miguel lipitor Pt denies any myalgia. GERD Pt has GERD. Pt takes pepcid and doing ok Pt denies any abd pain or early satiety fatty liver1 Pt has fatty xiomara er Pt denies any abd pain or jaundice. Pt does not drink alcohol abd pain1 pt c/o acute ons et of right flank pain with radiation to right lower quadrant on and off for 4 weeks. Pt notices blood in urine .Pt denies any fever, chill, nausea, vomiting, diarrhea .Pt denies any urinary symptoms. Pt states that she is very uncomfortable all the time. Pt c/o sharp pain 6/10 right flank area with radiation around right side of abdomen. Pt did have hematuria last year and CT urogram was ordered but she never got it done. Pt has normal urine output. Pt denies any back injury or sciatica or any leg numbness or tingling or any loss of bowel or bladder control. Pt states that she is afraid of going to ER due to COVID. Pt has been taking OTC tylenol for pain which helps physical Pt needs annual physical. Pt has HTN. Pt takes metoprolol and her BP is stable. Pt has low thyroid. Pt takes synthroid. Pt has GERD and she takes pepcid and her symptoms are well controlled. Pt has HLP. Pt takes lipitor. Pt denies any myalgia. Pt has chronic tremor. Pt takes sinemet and symptoms are well controlled. Pt also has chronic anxiety and depression with bipolar disorder Pt takes multiple psychiatry meds. Pt sees psychiatrist. Pt has chronic tremor. pt is incontinent and she wants diapers, especially at night. HLP Pt has mildly el evated TG Pt is on lipitor pt denies any myalgia tobacco1 Pt failed patch .Pt still smoking .Pt does not want LDCT for lung CA screening hematuria1 Pt has mild earline turia. Pt denies any UTI symptoms. Pt had total hysterectomy Pt not sure if she has hemorrhoid. Pt denies any noticeable blood. Pt states that she has hemorrhoid and she notices bright red blood on her underwear sometimes. Pt states that she notices diffuse abdominal pain sometimes .Pt denies any acute pain Pt denies any nausea, vomiting, GERD glucose1 Pt has borderlin e high glucose Pt denies any polyuria polydipsia tremor1 Pt has chronic e ssential/parkinson tremor Pt takes sinemet and doing ok Pt denies any headache or worsening tremor tobacco1 Pt wants to try to quit smoking Pt smokes about close to 1 PPD Pt denies any hemoptysis, sob or cough HLP Pt has HLP Pt ta kes lipitor. Pt denies any myalgia GERD1 Pt has chronic G ERD Pt doing ok with pepcid. Pt denies any abd pain or nausea hypothyroidism1 Pt has low thyro id Pt takes synthroid PT denies any thyroid nodule or pain. Pt denies any dysphagia hypothyroidism1 Pt has hypothyro idism. Pt takes synthroid Pt needs refill GERD1 Pt has chronic G ERD Pt doing ok with pepcid Pt denies any nausea, vomiting GERD tremor1 Pt has parkinson tremor. Pt doing ok with sinemet. Pt denies any worsening tremor ,Pt does have mild chronic dementia Pt denies any worsening symptoms HTN Pt is taking met oprolol. Her BP is ok Pt denies any dizziness or headache HLP Pt has HLP Pt ta kes lipitor ,Pt denies any myalgia, Pt has not done lab yet blood1 Pt c/o right fla nk pain radiating down to right anterior lower abdomen for two weeks, Pt denies any fever, chill pt notices frequent urination Pt notices blood in urine pt denies any blood with BM, Pt denies any nausea, vomiting, fever, chill. Hypertension 1 patient has hype rtension. Patient the metoprolol. Patient denies any chest pain or headache. Her blood pressure stable. Patient denies any chest pain. Patient denies any shortness of breath. Patient negative cardiac stress test and echo recently. thyroid Patient has low thyroid. Patient denies any dysphasia or neck pain. Patient takes Synthroid. Patient does not wants her ultrasound. Physical Pt needs annual physical. Pt has HTN. Pt takes metoprolol and her BP is stable. Pt has low thyroid. Pt takes synthroid. Pt has GERD and she takes pepcid and her symptoms are well controlled. Pt has HLP. Pt takes lipitor. Pt denies any myalgia. Pt has chronic tremor. Pt takes sinemet and symptoms are well controlled. Pt also has chronic anxiety and depression with bipolar disorder Pt takes multiple psychiatry meds. Pt sees psychiatrist. Pt has chronic tremor. Pt does not have any diagnosis of parkinson disease. Pt denies any headache Pt doing ok with sinemet. Pt denies any other complaints clearance Patient needs mi dical clearance for left knee replacement surgery in March. Patient recently had right hip replaced. Patient did not have any perioperative or postoperative complication. Patient did have negative cardiac stress test and she was cleared by padder cushion recently. Patient denies any chest pain or shortness of breath. Patient denies any difficulty with anesthesia in the past. Patient denies any other complaints. thyroid Pt has low thyro id. Pt takes synthroid. Pt needs refill .Pt denies any palpitation or chest pain or headache tremor1 Pt has chronic t remor. Pt takes Sinemet and doing ok. Pt was told she has essential tremor GERD1 Pt has GERD Pt t akes pepcid and she denies any GERD. Pt denies any nausea, vomiting, abdominal pain HTN Pt has HTN Pt ta kes metoprolol and her BP is stable. Pt denies any chest pain HLP Pt takes lipitor Pt denies any myalgia Pt has HLP knee pain1 Pt had right kne e replacement one month ago Pt has rather severe right knee pain but seems getting better Pt is doing PT now. Pt has appointment with ortho in two weeks. Pt needs a tramadol refill. HTN Patient hyperten fabiola patient taking metoprolol and her blood pressure is stable. Patient was cleared by cardiology for any coronary artery disease. Patient denies any chest pain. HLP1 Patient has hype rlipidemia. Patient takes Lipitor. Patient denies of myalgia. Her lipid profile is stable. thyroid Patient has hypo thyroidism.. Patient needs Synthroid refilled. tremor1 Patient has esse ntial tremor. Patient takes Sinemet. Her symptoms well controlled. Patient denies any nausea with Sinemet. 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 Patient take Pepcid and her symptom is well controlled. Patient denies any nausea vomiting abdominal pain. knee1 Pt has bilateral knee pain and she has arthritis pt will need right knee replacement scheduled on 08/03/18. Pt needs clearance. Pt does have HTn and HLP and history of smoking as a risk factors for cardiac disease pt denies any chest pain Pt denies sob. Pt is not very sedentary. HTn. Pt has HTn pt ta kes metoprolol Pt denies any chest pain her BP is stable HLP Pt takes lipitor . Her lipid profile is ok Pt denies any myalgia Tobacco1 Pt quit smoking 3 years ago. LDCT ok. Pt denies any sob Osteopenia1 Pt has mild oste openia Pt denies any bone fracture. Pt takes calcium and D knee pain TG Pt has high TG a nd high glucose. Pt denies any polyuria, polydipsia. Pt has mild low renal. pt has normal UO. Pt has mild proteinuria. Pt denies any UTI symptoms Pt denies any incontinence or urgency or frequency and she deferred urology referral. knee pani1 Pt has bilateral knee pain. Pt denies any swelling. Pt denies any erythema or warmth. Pt had remote left knee surgery long time ago for unknown reason Pt denies any injury Pt just has pain daily. Pt denies any recent injury physical Pt needs annual physical. Pt c/o frequent urination and bedwetting . Pt denies any dysuria, Pt feels urinary urgency as well. Pt has urine leakage. Pt denies any chest pain or sob at night. Pt has HTN. Pt takes metoprolol and her BP is stable. Pt has low thyroid. Pt takes synthroid. Pt has GERD and she takes pepcid and her symptoms are well controlled. Pt has HLP. Pt takes lipitor. Pt denies any myalgia. Pt has chronic tremor. Pt takes sinemet and symptoms are well controlled. Pt denies any other complaints Instructions Date Instruction Additional Infor sirena Special diet education Related t o Body mass index (BMI) 31.0-31.9, adult Increase physical activity Relat ed to Encounter for general adult medical exam w abnormal findings Weight management Related to Enc ounter for general adult medical exam w abnormal findings Special diet education Related t o Body mass index (BMI) 32.0-32.9, adult Weight management Related to Nanette chi OA of left knee Special diet education Related t o Body mass index (BMI) 32.0-32.9, adult Weight management Related to Hyp othyroidism Special diet education Related t o Body mass index (BMI) 32.0-32.9, adult Weight management Related to Ess ential (primary) hypertension Special diet education Related t o Body mass index (BMI) 33.0-33.9, adult Increase activity. Related to Hy perlipidemia Follow a low sodium diet. Relate d to Hyperlipidemia Increase activity. Related to Hy perlipidemia Follow a low sodium diet. Relate d to Hyperlipidemia Special diet education Related t o Body mass index (BMI) 33.0-33.9, adult Increase physical activity Relat ed to Encounter for general adult medical exam w abnormal findings Quit smoking Related to Encou nter for general adult medical exam w abnormal findings Weight management Related to Enc ounter for general adult medical exam w abnormal findings Special diet education Related t o Body mass index (BMI) 34.0-34.9, adult Assessments Type Assessment Date No Information
--- OUTSIDE RECORDS SUMMARY | 2024-07-14 10:46 | XMS_ITS | Continuity of Care Document ---
Author Organization [facility] Address [address] [place] [address] Phone Care Team Providers Care Cell Reliner Name Role Phone Jn Ley MD Unavailable Unavailable Allergies, Adverse Reactions, Alerts Substance Reaction Status Criticality hydrocodone Active No Information Medications Medication Instructions Dosage Effective Dates (start - stop) Status Comments Lipitor 20 mg tablet take 1 Tablet by oral route every day 20 MG - Active Synthroid 100 mcg tablet take 1 tablet by oral route every day 100 MCG - Active Sinemet 25 mg-100 mg tablet take 1 tablet by oral route 3 times every day 1.00 tablet - Active Pepcid 20 mg tablet take 1 tablet by oral route every day 20 MG - Active metoprolol succinate ER 50 mg tablet,extended release 24 hr take 1 tablet by oral route every day 50 MG - Active Topamax 25 mg tablet take 1 Tablet by oral route 2 times every day 25 MG - Active Invega Sustenna 117 mg/0.75 mL intramuscular syringe inject 0.75 milliliter by intramuscular route every month 117 MG - Active Ativan 1 mg tablet take 1 tablet by oral route 3 times every day as needed 1 MG - Active Depakote 500 mg tablet,delayed release take 1 tablet by oral route 2 times every day 500 MG - Active Procedures Procedure Date OFFICE/OUTPATIENT [...] Diagnoses Date Provider Providers Copied on Encounter [facility], [address], [place], [address], tel:[phone] [facility] No Information [address] [place], [address] , [place]. tel:[phone] OFFICE/OUTPA TIENT VISIT, EST [facility], [address], [place], [address], tel:[phone] [facility] thyroid1 (chief complaint) HLP (chief complaint) GERD1 (chief complaint) tremor1 (chief complaint) HTN (chief complaint) edema1 (chief complaint) Essential (primary) hypertensionMixed hyperlipidemiaHypot hyroidismEdemaTremo rGERD w/o esophagitisFatty liver [address] [facility] [address], [place], [place], [address] , [place]. tel:[phone] OFFICE/OUTPA TIENT VISIT, EST [facility], [address] [place], [place], [address], [place] [phone] [facility] thyroid1 (chief complaint) HLP (chief complaint) incontinen ce1 (chief complaint) pre-DM (chief complaint) edema1 (chief complaint) HypothyroidismEssen tial (primary) hypertensionHypergl ycemiaEdemaMixed hyperlipidemiaMixed incontinence [address], [address], [place], [place], [address] , [place]. tel:[phone] PREV VISIT, EST, AGE 40-64 [facility], [address], [place], [place], [address], [place] [phone] [facility] physical (chief complaint) Encounter for general adult medical exam w abnormal findingsEdemaAbnorm al weight gainHypothyroidismG ERD w/o esophagitisEssentia l (primary) hypertensionTremorM ixed hyperlipidemiaHyper glycemia Fe [address], [address], [place], [place], [address] , [place]. tel:[phone] OFFICE/OUTPA TIENT VISIT, EST [facility], [address] [place], [address], [place] [phone] [facility] hypothyroi dism1 (chief complaint) tremor1 (chief complaint) GERD1 (chief complaint) HLP (chief complaint) HTN (chief complaint) Mixed hyperlipidemiaGERD w/o esophagitisMetaboli c syndromeHypothyroid ismTremorEssential (primary) hypertension [address], [place], [place], [address] , [place]. tel:[phone] OFFICE/OUTPA TIENT VISIT, EST [facility], [address], [place], [place], [address], [place] tel:[phone] [facility] hypothyroi dism1 (chief complaint) HLP (chief complaint) Pre-DM (chief complaint) HypothyroidismMixed hyperlipidemiaMetab olic syndromeDehydration [address], [place], [place], [address] , [place]. tel:[phone] OFFICE/OUTPA TIENT VISIT, [facility] [place], [address], [place], [place], [address], [place] tel:[phone] [facility] DM (chief complaint) weight1 (chief complaint) thyroid1 (chief complaint) HypothyroidismMetab olic syndromeAbnormal weight gainDiarrhea [address], [place], [place], [address] , [place]. tel:[phone] OFFICE/OUTPA TIENT VISIT, [facility] [place], [address], [place], [place], [address], [place] tel:[phone] [facility] glucose1 (chief complaint) tobacco1 (chief complaint) HLP (chief complaint) hypothyroi dism1 (chief complaint) Mixed hyperlipidemiaHypot hyroidismMetabolic syndromeTobacco use [address], [place], [place], [address] , [place]. tel:[phone] OFFICE/OUTPA TIENT VISIT, [facility] [place], [address] [place], [address], [place] tel:[phone] [facility] tremor1 (chief complaint) GERD (chief complaint) GERD1 (chief complaint) HLP (chief complaint) thyroid1 (chief complaint) HTN (chief complaint) Essential (primary) hypertensionHypothy roidismMixed hyperlipidemiaGERD w/o esophagitisTremor [address], [address], [place], [place], [address] , [place]. tel:[phone] PREV VISIT, EST, AGE 40-64 [facility], [address], [place], [place], [address], [place] [phone] [facility] physical (chief complaint) Encounter for general adult medical exam w abnormal findingsEssential (primary) hypertensionGERD w/o esophagitisHypothyr oidismTremorMixed hyperlipidemiaMigra ine without aura, not intractable, without status migrainosus [address], [place], [place], [address] , [place]. tel:[phone] OFFICE/OUTPA TIENT VISIT, EST [facility], [address], [place], [place], [address], [place] [phone] [facility] physical (chief complaint) Encounter for general adult medical exam w abnormal findingsHypothyroid ismMixed hyperlipidemiaEssen tial (primary) hypertensionTremorH ematuriaGERD w/o esophagitisPain in unspecified knee [address], [place], [place], [address] , [place]. tel:[phone] OFFICE/OUTPA TIENT VISIT, EST [facility], [address], [address], [place] [phone] [facility] renal1 (chief complaint) glucose1 (chief complaint) HLP (chief complaint) thyroid1 (chief complaint) tremor1 (chief complaint) HTN (chief complaint) Essential (primary) hypertensionHyperli pidemiaTremorGERD w/o esophagitisHypergly cemiaRenal diseaseHypothyroidi smHematuriaVitamin D deficiency, unspecifiedEdema [address], [place], [place], [address] , [place]. tel:[phone] OFFICE/OUTPA TIENT VISIT, EST [facility], [address], [place], [place], [address], [place] tel:[phone] [facility] hypothyroi dism1 (chief complaint) tremor1 (chief complaint) HLP (chief complaint) GERD1 (chief complaint) fatty liver1 (chief complaint) GERD w/o esophagitisHematuri aHyperlipidemiaHypo thyroidismTremorEss ential (primary) hypertensionFatty liver May- [address], [address], [place], [place], [address] , [place]. tel:[phone] OFFICE/OUTPA TIENT VISIT, [facility] [place], [address], [place], [place], [address], [place] tel:[phone] [facility] abd pain1 (chief complaint) Abdominal painHematuria Feb- [address], [place], [place], [address] , [place]. tel:[phone] OFFICE/OUTPA TIENT VISIT, [facility] [place], [address], [place], [place], [address], [place] tel:[phone] [facility] physical (chief complaint) Encounter for general adult medical exam w abnormal findingsUrge incontinenceHypothy roidismEssential (primary) hypertensionHyperli pidemiaTremorGERD w/o esophagitis [address], [address], [place], [place], [address] , [place]. [phone] OFFICE/OUTPA TIENT VISIT, [facility] [place], [address], [place], [place], [address], [place] [phone] [facility] hematuria1 (chief complaint) glucose1 (chief complaint) HLP (chief complaint) tobacco1 (chief complaint) HematuriaHyperlipid emiaHyperglycemiaHe morrhoidTobacco use Jul-3 [address], [address], [place], [place], [address] , [place]. [phone] OFFICE/OUTPA TIENT VISIT, [facility] [place], [address], [address], [place] tel:[phone] [facility] HLP (chief complaint) GERD1 (chief complaint) hypothyroi dism1 (chief complaint) tremor1 (chief complaint) tobacco1 (chief complaint) HyperlipidemiaGERD w/o esophagitisEssentia l (primary) hypertensionHypothy roidismTobacco useTremor Apr- 4-202 [address], [place], [place], [address] , [place]. [phone] Referring Provider: Stephanie Pastor [address], [place], [place], [address]. tel:[phone] OFFICE/OUTPA TIENT VISIT, [facility] [place], [address], [place], [place], [address], [place] tel:[phone] [facility] hypothyroi dism1 (chief complaint) GERD1 (chief complaint) tremor1 (chief complaint) HTN (chief complaint) HLP (chief complaint) HypothyroidismEssen tial (primary) hypertensionTremorH yperlipidemiaGERD w/o esophagitis Nov-3 0-[address], [address], [place], [place], [address] , [place]. tel:[phone] Referring Provider: Stephanie Pastor [address], [place], [place], [address]. tel:[phone] OFFICE/OUTPA TIENT VISIT, [facility] [place], [address], [place], [place], [address], [place] tel:[phone] [facility] blood1 (chief complaint) thyroid (chief complaint) Hypertensi on 1 (chief complaint) Abdominal painUrinary frequencyHematuriaH ypothyroidismEssent ial (primary) hypertension [address], [address], [place], [place], [address] , [place]. tel:[phone] Referring Provider: Stephanie Pastor [address], [place], [place], [address]. tel:[phone] OFFICE/OUTPA TIENT VISIT, [facility] [place], [address], [place], [place], [address], [place] tel:[phone] [facility] Physical (chief complaint) Encounter for general adult medical exam w abnormal findingsHyperlipide miaGERD w/o esophagitisHypothyr oidismEssential (primary) hypertensionTremor [address], [place], [place], [address] , [place]. tel: [phone] Referring Provider: Stephanie Pastor [address], [place], [place], [address]. tel:[phone] OFFICE/OUTPA TIENT VISIT, [facility] [place], [address], [place], [place], [address], [place] tel:[phone] [facility] clearance (chief complaint) Pain in left kneePrimary OA of left knee [address], [address], [place], [place], [address] , [place]. tel:[phone] Referring Provider: [address], [place], [place], [address]. tel:[phone] OFFICE/OUTPA TIENT VISIT, [facility] [place], [address], [place], [place], [address], [place] tel:[phone] [facility] thyroid (chief complaint) tremor1 (chief complaint) GERD1 (chief complaint) HTN (chief complaint) HLP (chief complaint) Essential (primary) hypertensionGERD w/o esophagitisHyperlip idemiaHypothyroidis mTremor [address], [place], [place], [address] , [place]. tel:[phone] Referring Provider: Stephanie Pastor [address], [place], [place], [address]. tel:[phone] OFFICE/OUTPA TIENT VISIT, [facility] [place], [address], [place], [place], [address], [place] tel:[phone] [facility] knee pain1 (chief complaint) thyroid (chief complaint) tremor1 (chief complaint) GERD1 (chief complaint) HTN (chief complaint) HLP1 (chief complaint) Essential (primary) hypertensionTremorG ERD w/o esophagitisHyperlip idemiaPresence of right artificial knee jointHypothyroidism [address], [address], [place], [place], [address] , [place]. tel:[phone] Referring Provider: Stephanie Pastor [address], [place], [place], [address]. tel:[phone] OFFICE/OUTPA TIENT VISIT, [facility] [place], [address], [address], [place] tel:[phone] [facility] knee1 (chief complaint) HTn. (chief complaint) HLP (chief complaint) HyperlipidemiaEssen tial (primary) hypertensionPain in unspecified knee [address], [address], [place], [place], [address] , [place]. tel:[phone] Referring Provider: Stephanie Pastor [facility], [place], [place], [address]. tel:[phone] OFFICE/OUTPA TIENT VISIT, [facility] [place], [address] [place] [address] [address], [address], [place] tel:[phone] [facility] TG (chief complaint) Tobacco1 (chief complaint) Osteopenia 1 (chief complaint) knee pain (chief complaint) knee pani1 (chief complaint) HyperlipidemiaRenal diseaseProteinuriaO ther specified disorder of bone densityPain in unspecified knee [address], [place], [place], [address] , [place]. tel:[phone] Referring Provider: Stephanie Pastor [facility] [address], [place], [place], [address]. tel:[phone] OFFICE/OUTPA TIENT VISIT, [facility], [address], [place], [place], [address], [place] tel:[phone] [facility] physical (chief complaint) Encounter for general adult medical exam w abnormal findingsHypothyroid ismEssential (primary) hypertensionTremorG ERD w/o esophagitisHyperlip idemiaOveractive bladder [address], [address] , [place]. tel:[phone] Referring Provider: Jn Ley [address], [place], [place], [address]. tel:[phone] Family History Family Member Type Diagnosis Age At Onset No Information Payers Payer name Insurance type Covered republican ID Authoriza tion(s) No Information Social History [...] Evaluate and treat ordered Referral Referred To: Agaptio Antony [address] [place] [address], [phone] Ordered: Referrals: Agapito Antony. Evaluate and treat ordered Referral Ordered: US THYROID ordered Referral Referred To: Hossein Hernandez [address] [place], [phone] Ordered: Referrals: Hossein Hernandez. Evaluate and treat ordered Referral Ordered: CT ABDOMEN&PELVIS W/CONTRAST ordered Referral Ordered: CT ABDOMEN W/O DYE ordered Referral Ordered: Jez Tate -[facility] : Internal Medicine : Cardiovascular Disease (related to Pain in unspecified knee) ordered Referral Referred To: Jez Tate [address] [place], [place] [id number] Ordered: Referrals: [facility] : Internal Medicine : Cardiovascular Disease. Jez Tate. Evaluate and treat ordered Referral Ordered: Reid Granger -[facility] : Orthopaedic Surgery (related to Pain in unspecified knee) ordered Referral Referred To: Reid Granger [address] [place] [address] [address] [place], [place] [phone] Ordered: Referrals: [facility] : Orthopaedic Surgery. Reid Granger. Evaluate and treat ordered Referral Ordered: ANEL COOK -[facility] : Surgery (related to Encntr for general adult medical exam w/o abnormal findings) ordered Referral Ordered: CT THORAX W/O DYE ordered Referral Referred To: ANEL COOK [address] [place], [place], [phone] Ordered: Referrals: [facility] : Surgery. ANEL COOK. Evaluate and treat ordered Referral Ordered: DXA BONE DENSITY, AXIAL ordered History Of Present Illness Encounter Date Complaint History Of Prese nt Illness edema1 Pt has chronic L E edema due to lymphedema .Pt failed diuretics Pt never followed up with lymphedema clinic. She had abd ultrasound done which showed fatty liver only HTN Pt has HTN pt ta kes metoprolol and her bp is stable tremor1 Pt has mild esse ntial tremor and she takes sinemet and doing ok. Pt denies any other issues GERD1 Pt has chronic m ild gERD Pt doing well with pepcid. Pt needs refill HLP Pt has HLP Pt ta kes lipitor Pt denies any myalgia her lipid profile is ok thyroid1 Pt has hypothyro idism Pt takes synthroid and tsh ok Pt denies any dysphagia or neck pain thyroid1 Pt has hypothyro idism Pt takes synthroid and tsh ok Pt denies any dysphagia or neck pain edema1 Pt has bilateral lymphedema pt took lasix which did help and she no longer wants to take lasix. her CT is denied by insurance Pt denies any abd pain incontinence1 Pt has urine inc ontinence. Pt needs pullups and pads and gloves paper completed HLP Pt has HLP Pt ta kes lipitor Pt denies any myalgia her lipid profile is ok pre-DM Pt is pre-diabet ic Her A1c is borderline high Pt denies any polyuria ,polydipsia Pt could not tolerate metformin. physical Pt needs annual physical. Pt has [...] home. She denies any PND or orthopnea HTN Pt has HTN. Pt t akes metoprolol and his bp is stable. hypothyroidism1 Pt has hypothyro idism. Pt takes synthroid Pt needs synthroid refilled pT denies any dysphagia or neck pain. Her TSH is ok tremor1 Pt has mild esse ntial tremor and she takes sinemet and doing ok. Pt denies any other issues GERD Pt has chronic m ild gERD Pt doing well with pepcid. Pt needs refill HLP Pt has HLP .Pt t akes lipitor and doing ok Pt denies any myalgia Pre-DM Pt has mildly hi gh A1c her glucose is ok. Pt has mild insulin resistance .Pt denies any polyuria, polydipsia. HLP Pt has HLP Pt ta kes lipitor. Pt denies any myalgia Her Tg is borderline high hypothyroidism Pt has hypothyro idism. Pt takes synthroid and her TSh is ok .TPO and TSI are ok. Thyroid ultrasound ok Pt denies any dysphagia or neck pain weight1 pt is morbidly o bese Pt [...] she has not smoked for 4 weeks. hypothyroidism1 Pt has low thyro id. Pt denies any dysphagia or neck pain. Pt takes synthroid and her TSH is ok HLP Pt takes lipitor Pt denies any myalgia. her lipid profile is ok thyroid1 Pt has hypothyro idism Pt takes synthroid Pt denies any dysphagia or neck pain HTN P has HTN Pt nancy e metoprolol and her bp is ok. Pt denies any chest pain, sob or dizziness tremor1 Pt has parkinson tremor. Pt takes sinemet and doing ok. Pt needs refill GERD GERD1 Pt has GERD. Pt takes pepcid and doing ok Pt denies any nausea, vomiting, abd pain, weight loss HLP Pt has HLP ,Pt t akes lipitor. Pt denies any myalgia physical Pt needs annual physical. Pt has [...] kes metoprolol and her bp is ok fatty liver1 Pt has fatty xiomara er Pt denies any abd pain or jaundice. Pt does not drink alcohol hypothyroidism1 Pt has low thyro id Pt takes synthroid Pt denies any dysphagia or neck pain tremor1 Pt has mild trem or. Pt takes sinemet and doing ok Pt denies any headache HLP Pt has HLP. Pt t akes lipitor Pt denies any myalgia. GERD1 Pt has GERD. Pt takes pepcid and doing ok Pt denies any abd pain or early satiety abd pain1 pt c/o acute ons et [...] high glucose Pt denies any polyuria polydipsia tobacco1 Pt wants to try to quit smoking Pt smokes about close to 1 PPD Pt denies any hemoptysis, sob or cough tremor1 Pt has chronic e ssential/parkinson tremor Pt takes sinemet and doing ok Pt denies any headache or worsening tremor hypothyroidism1 Pt has low thyro id Pt takes synthroid PT denies any thyroid nodule or pain. Pt denies any dysphagia GERD1 Pt has chronic G ERD Pt doing ok with pepcid. Pt denies any abd pain or nausea HLP Pt has HLP Pt ta kes lipitor. Pt denies any myalgia tremor1 Pt has parkinson tremor. Pt doing ok with sinemet. Pt denies any worsening tremor ,Pt does have mild chronic dementia Pt denies any worsening symptoms GERD1 Pt has chronic G ERD Pt doing ok with pepcid Pt denies any nausea, vomiting GERD hypothyroidism1 Pt has hypothyro idism. Pt takes synthroid Pt needs refill HTN Pt is taking met oprolol. Her BP is ok Pt denies any dizziness or headache HLP Pt has HLP Pt ta kes lipitor ,Pt denies any myalgia, Pt has not done lab yet thyroid Patient has low thyroid. Patient denies any dysphasia or neck pain. Patient takes Synthroid. Patient does not wants her ultrasound. Hypertension 1 patient has hype rtension. Patient the metoprolol. Patient denies any chest pain or headache. Her blood pressure stable. Patient denies any chest pain. Patient denies any shortness of breath. Patient negative cardiac stress test and echo recently. blood1 Pt c/o right fla nk pain radiating down to right anterior lower abdomen for two weeks, Pt denies any fever, chill pt notices frequent urination Pt notices blood in urine pt denies any blood with BM, Pt denies any nausea, vomiting, fever, chill. Physical Pt needs annual physical. Pt has [...] denies any other complaints clearance Patient needs me dical clearance for left knee replacement surgery in March. Patient recently had right hip replaced. Patient did not have any perioperative or postoperative complication. Patient did have negative cardiac stress test and she was cleared by automotive design layout drafter recently. Patient denies any chest pain or shortness of breath. Patient denies any difficulty with anesthesia in the past. Patient denies any other complaints. GERD1 Pt has GERD Pt t akes pepcid and she denies any GERD. Pt denies any nausea, vomiting, abdominal pain HTN Pt has HTN Pt ta kes metoprolol and her BP is stable. Pt denies any chest pain HLP Pt takes lipitor Pt denies any myalgia Pt has HLP tremor1 Pt has chronic t remor. Pt takes Sinemet and doing ok. Pt was told she has essential tremor thyroid Pt has low thyro id. Pt takes synthroid. Pt needs refill .Pt denies any palpitation or chest pain or headache knee pain1 Pt had right kne e [...] artery disease. Patient denies any chest pain. GERD1 Patient has chronometer tester verena GERD. Patient take Pepcid and her symptom is well controlled. Patient denies any nausea vomiting abdominal pain. tremor1 Patient has esse ntial tremor. Patient takes Sinemet. Her symptoms well controlled. Patient denies any nausea with Sinemet. thyroid Patient has hypo thyroidism.. Patient needs Synthroid refilled. HLP1 Patient has hype rlipidemia. Patient takes Lipitor. Patient denies of myalgia. Her lipid profile is stable. knee1 Pt has bilateral knee pain and [...] o Body mass index (BMI) 33.0-33.9, adult Follow a low sodium diet. Relate d to Hyperlipidemia Increase activity. Related to Hy perlipidemia Follow a low sodium diet. Relate d to Hyperlipidemia Increase activity. Related to Hy perlipidemia Special diet education Related t o Body mass index (BMI) 33.0-33.9, adult Weight management Related to Enc ounter for general adult medical exam w abnormal findings Quit smoking Related to Encou nter for general adult medical exam w abnormal findings Increase physical activity Relat ed to Encounter for general adult medical exam w abnormal findings Special diet education Related t o Body mass index (BMI) 34.0-34.9, adult Assessments Type Assessment Date No Information
--- OUTSIDE RECORDS SUMMARY | 2025-04-14 04:20 | XMS_ITS ---
Author Organization [facility] Address [address] [place] [address] Care Team Providers Care Floral Associate Name Role Phone Luis Medina Primary Care Provider Tino Pan Unavailable [phone] REASON FOR VISIT 2 Month F/U Medications Medication SIG (Take, Route, Frequency, Duration) Notes Start Date End Date Status Topiramate 50 mg TAKE 1 TABLET BY ESTHELA TH TWICE A DAY Orally Twice a day; Duration: 30 days Active Divalproex Sodium ER 500 mg TAKE 1 TABLET BY MOUTH TWICE A DAY Twice a day; Duration: 30 days Active Invega Sustenna 234 MG/1.5ML 1mL Intramuscular Monthly; Duration: 30 days 03/03/2024 Active Vitamin D3 50 MCG (1999) TAKE 1 TABLET BY MOUTH DAILY; Duration: 30 days Active Benztropine Mesylate 0.5 MG 1 tablet at bedtime Orally Once a day; Duration: 30 days Active LORazepam 1 mg TAKE 1 TABLET BY ESTHELA THREE TIMES A DAY Orally Three times a day as needed.; Duration: 30 days 04/05/2025 Active Ketoconazole 2 % 1 application Externally Once a day; Duration: 14 days TO RASH UNDER ARMS AND ON GROIN Active Acetaminophen 500 MG two tablets as need ed for pain (maximum of 6 tablets in 24 hours) Orally every 6 hrs 02/02/2025 Active Trulicity 1.5 MG/0.5ML 0.5 mL Subcutaneo us weekly; Duration: 28 days Active DTx Megha - Miscellaneous - EXTRA-LARGE WOMEN'S URINARY INCONTINENCE BRIEF EXTERNALLY TWICE DAILY; Duration: 30 days 09/05/2024 Active metroNIDAZOLE 0.75 % 1 application Externally Twice a day; Duration: 30 days TO FACE 09/05/2024 Active metFORMIN HCl 500 MG 1 tablet with a jesenia l Orally Once a day BID 01/28/2023 Not-Taking DTx Megha - Miscellaneous - PLASTIC GLOVES EXTERNALLY DAILY; Duration: 30 days 09/05/2024 Active DTx Megha - Miscellaneous - NON-SLIP FLOOR PADS EXTERNALLY DAILY; Duration: 30 days 09/05/2024 Active Carbidopa-Levodopa 25-100 MG 1 tablet as needed Orally Two times a Week Active Famotidine 20 MG 1 tablet at bedtime as needed Orally Once a day Active Levothyroxine Sodium 100 MCG 1 tablet in the morning on an empty stomach Orally Once a day Active Metoprolol Tartrate 50 MG 1 tablet with food Orally Twice a day Active Social History Sex Assigned At : Social History Observation Description Sex Assigned At Female Encounters Encounter Location Date Provider Diagnosis [facility] [address] [place] [address] 04/14/2025 Tino Pan Plan Of Treatment Next Appt Details Provider Name:Luis cabrera, 08/14/2025 09:40:00 AM, [address], [place], [address], Provider Name:Tino Pan , 08/15/2025 11:40:00 AM, [address], [place], [address], Progress Notes * BROTHER, LuciaaDOB:1960 (64 yo F)Acc No.[id number]:04/14/2025 UNLOCKED PROGRESS NOTE Progress Notes Patient: Radha FLORES Provider: Chandan Pan :1960 A ge:64 Y S ex:Female Date:04/14/2025 Address:[address] [place] [address], [address], [place], [place] Pcp:Luis Medina Subjective: * Chief Complaints: * 1 . 2 Month F/U. * Medical History: * Medications: T aking Levothyroxine Sodium 100 MCG Tablet 1 tablet in the morning on an empty stomach Orally Once a day , Taking Metoprolol Tartrate 50 MG Tablet 1 tablet with food Orally Twice a day , Taking Famotidine 20 MG Tablet 1 tablet at bedtime as needed Orally Once a day , Taking Carbidopa-Levodopa 25-100 MG Tablet 1 tablet as needed Orally Two times a Week , Taking metroNIDAZOLE 0.75 % Gel 1 application Externally Twice a day TO FACE, Taking DTx Megha - Miscellaneous - Miscellaneous EXTRA-LARGE WOMEN'S URINARY INCONTINENCE BRIEF EXTERNALLY TWICE DAILY , Taking DTx Megha - Miscellaneous - Miscellaneous NON-SLIP FLOOR PADS EXTERNALLY DAILY , Taking DTx Megha - Miscellaneous - Miscellaneous PLASTIC GLOVES EXTERNALLY DAILY , Taking Ketoconazole 2 % Cream 1 application Externally Once a day TO RASH UNDER ARMS AND ON GROIN, Taking Acetaminophen 500 MG Tablet two tablets as needed for pain (maximum of 6 tablets in 24 hours) Orally every 6 hrs , Taking Trulicity 1.5 MG/0.5ML Solution Auto- injector 0.5 mL Subcutaneous weekly , Taking LORazepam 1 mg Tablet TAKE 1 TABLET BY MOUTH THREE TIMES A DAY Orally Three times a day as needed. , Taking Invega Sustenna 234 MG/1.5ML Suspension Prefilled Syringe 1mL Intramuscular Monthly , Taking Divalproex Sodium ER 500 mg Tablet Extended Release 24 Hour TAKE 1 TABLET BY MOUTH TWICE A DAY Twice a day , Taking Topiramate 50 mg Tablet TAKE 1 TABLET BY MOUTH TWICE A DAY Orally Twice a day , Taking Benztropine Mesylate 0.5 MG Tablet 1 tablet at bedtime Orally Once a day , Taking Vitamin D3 50 MCG (2000 UT) Tablet TAKE 1 TABLET BY MOUTH DAILY , Not-Taking metFORMIN HCl 500 MG Tablet 1 tablet with a meal Orally Once a day , Notes to Pharmacist: BID, Discontinued HYDROcodone-Acetaminophen 5-325 MG Tablet 1 tablet as needed Orally every 6 hrs As needed dental pain after procedure Objective: * Vitals: Assessment: Plan: * Treatment: * * Electronic signature of Jeanine Pan , [id number] on 08/07/2025 at 06:12 PM CDT Sign off status: Pending * Provider: Chandan Pan Date: 04/14/2025 Generated for Gama moscoso/Romina/Tressa on: 08/07/2025 06:12 PM CDT
--- NOTE | ~2025-08-07 | CT_ITS ---
EXAMINATION: CT brain wo rodolfo, 08/07/2025 17:30 CDT HISTORY: head injury COMPARISON: No comparisons available. Technique: Axial images obtained of the brain without contrast. One or more of the following dose reduction techniques were used: automated exposure control, adjustment of the mA and/or kV according to patient size, use of iterative reconstruction technique. Findings: No acute infarct or parenchymal hemorrhage. No abnormal mass or mass effect. No midline shift. No extra-axial fluid collections. No hydrocephalus. Mastoid air cells unremarkable. Sinuses and orbits unremarkable. No acute fracture. No significant facial or scalp soft tissue swelling evident. No radiopaque foreign body is seen. Impression: 1.No acute intracranial abnormality. Reviewed, dictated and finalized at location A. Impression: 1.No acute intracranial abnormality.
[2025-08-07 15:26] VITALS: BP 128/81; PULSE 77; RESP 16; TEMP 36.7; O2SAT 94
[2025-08-07 16:30] VITALS: BP 116/78; PULSE 80; RESP 20; O2SAT 93
--- NOTE | 2025-08-07 16:36 | PC.NURSE ---
Pt requests to stay in w/c in room and in own clothes.
--- NOTE | 2025-08-07 17:09 | ED.HEATRA ---
HPI - Head Injury General Chief complaint: Head Injury Stated complaint: lump on head Time Seen by Provider: 08/07/25 16:43 History of Present Illness HPI Narrative: Patient is a 64-year-old female who presents ER with headache. Reports his in her posterior scalp and feels swelling. She denies any known trauma but feels like she has been struck in the head and is unsure whether someone broke into her room. No change in vision or hearing. Related Data Home Medications ?Medication ?Instructions ?Recorded ?Confirmed ?Last Taken ?Type atorvastatin 20 mg tablet 20 mg PO HS 03/21/21 09/15/24 09/14/24 21:45 History benztropine 0.5 mg tablet 0.5 mg PO HS 09/11/24 09/15/24 09/14/24 21:45 History carbidopa 25 mg-levodopa 100 mg 25 - 100 tablet PO TID 09/11/24 09/15/24 09/15/24 13:30 History tablet cholecalciferol (vitamin D3) 50 50 mcg PO DAILY 09/11/24 09/15/24 09/11/24 History mcg (2,000 unit) tablet divalproex 500 mg tablet,extended 500 mg PO BID 09/11/24 09/15/24 09/15/24 09:15 History release 24 hr dulaglutide 0.75 mg/0.5 mL 0.75 mg subcut WEEKLY 09/11/24 09/15/24 09/15/24 17:00 History subcutaneous pen injector (Trulicity) duloxetine 30 mg capsule,delayed 30 mg PO DAILY 09/11/24 09/15/24 09/15/24 09:15 History release famotidine 20 mg tablet 20 mg PO DAILY 09/11/24 09/15/24 09/11/24 History levothyroxine 100 mcg tablet 100 mcg PO DAILY 09/11/24 09/15/24 09/15/24 05:30 History lorazepam 1 mg tablet 1 mg PO TID 09/11/24 09/15/24 09/11/24 12:00 History metoprolol succinate 50 mg 50 mg PO DAILY 09/11/24 09/15/24 09/15/24 09:15 History tablet,extended release 24 hr metronidazole 0.75 % topical cream 1 applic topical DAILY 09/11/24 09/15/24 09/11/24 History paliperidone palmitate 234 mg/1.5 234 mg IM Q30D 09/11/24 09/15/24 08/30/24 History mL intramuscular syringe (Invega Sustenna) topiramate 50 mg tablet 50 mg PO BID 09/11/24 09/15/24 09/11/24 09:00 History Allergies Allergy/AdvReac Type Severity Reaction Status Date / Time hydrocodone Allergy Unknown Unknown Verified 08/07/25 16:32 meperidine Allergy Unknown Unknown Verified 08/07/25 16:32 morphine Allergy Unknown Unknown Verified 08/07/25 16:32 oxycodone Allergy Unknown Unknown Verified 08/07/25 16:32 Review of Systems Constitutional: Constitutional: Reports no additional constitutional complaints Cardiovascular: Cardiovascular: Reports no additional cardiovascular complaints Respiratory: Respiratory: Reports no additional respiratory complaints Neurologic: Reports system reviewed and no additional complaints, except as documented PMFSH Past Medical History Medical History History of hypertension History of hyperlipidemia History of hypothyroidism Social History Social History Smoking packs per day: 2 Smoking cigarettes per day: 40.0 Years smoked: 48 Smoking pack-years: 96.00 Smoking status: Former smoker Tobacco type: cigarettes Second hand tobacco smoke exposure: No Smoking end date: 04/22/22 Alcohol intake: former Substance use: never Substance use type: does not use Do You Feel Safe in your Home?: Yes Lack of Transportation: No Lack of Food: Never True Current Housing: I Have Housing Concerned About Future Housing: No Difficulty Paying Gas/Electric Bills: No Difficulty Paying for Meds: No Currently Unemployed: No Education: Grade School Difficulty w/ Childcare or Family Care: No Gender identity (if verbalized by the patient): Female Spiritual care concerns: No Exam Narrative: GENERAL: Well-appearing, well-nourished, and in no acute distress. HEAD: Normocephalic, atraumatic. ENT: Mucous membranes moist. EXTREMITIES: Normal range of motion. No edema. SKIN: Warm, dry, no rash. NEURO: Alert and oriented x3. PSYCH: Normal mood and affect. Course Course Emergency Course: Unremarkable imaging study. Appropriate for discharge home. Vital Signs Vital signs: Vital Signs Temperature 98.1 F 08/07/25 15:26 Pulse Rate 77 08/07/25 15:26 Respiratory Rate 16 08/07/25 15:26 Blood Pressure 128/81 08/07/25 15:26 Pulse Oximetry 94 08/07/25 15:26 Oxygen Delivery Room Air 08/07/25 15:26 Temperature 98.1 F 08/07/25 15:26 Pulse Rate 80 08/07/25 16:30 Respiratory Rate 20 08/07/25 16:30 Blood Pressure 116/78 08/07/25 16:30 Pulse Oximetry 93 08/07/25 16:30 Oxygen Delivery Room Air 08/07/25 16:30 Discharge Plan Discharge Clinical Impression: Headache Patient Disposition: Home Condition: Stable Instructions: General Headache (ED) Additional Instructions: Try to stay well hydrated at home. Please return to the emergency department if you develop worsening of your headache or a new headache which is severe, associated with vision changes, associated with neck stiffness or fever, or if it is different from any other headache that you have had before. Return to the emergency department if you develop numbness, weakness or tingling or problems with coordination, or if you develop severe nausea and vomiting and are unable to keep down fluids at home. Patient Language: Danish Prescriptions: No Action aspirin 81 mg capsule 81 mg PO DAILY Qty: 60 0RF atorvastatin 20 mg tablet 20 mg PO HS benztropine 0.5 mg tablet 0.5 mg PO HS metoprolol succinate 50 mg tablet extended release 24 hr 50 mg PO DAILY levothyroxine 100 mcg tablet 100 mcg PO DAILY famotidine 20 mg tablet 20 mg PO DAILY divalproex 500 mg tablet extended release 24 hr 500 mg PO BID metronidazole 0.75 % cream 1 applic TOPICAL DAILY Rx Instructions: FOR FACE lorazepam 1 mg tablet 1 mg PO TID carbidopa-levodopa 25-100 mg tablet 25 - 100 tablet PO TID topiramate 50 mg tablet 50 mg PO BID duloxetine 30 mg capsule,delayed release(DR/EC) 30 mg PO DAILY cholecalciferol (vitamin D3) 50 mcg (2,000 unit) tablet 50 mcg PO DAILY Trulicity 0.75 mg/0.5 mL pen injector 0.75 mg SUBCUT WEEKLY Rx Instructions: Takes on . Patient's own med Invega Sustenna 234 mg/1.5 mL Syringe 234 mg IM Q30D Rx Instructions: Patient's own. Next due on 09/20/24 Follow-up/Referrals: Tino Pan MD [Primary Care Provider, Hospitalist] - 1 Week
--- OUTSIDE RECORDS SUMMARY | 2025-08-07 18:12 | XMS_ITS | Patient Health Record ---
Author Organization 1 OF Maya polanco D[facility] Address [address] [place] [address] Care Team Providers Care Plumbing Engineering Draftsperson Name Role Phone Jn Ley Primary Care Provider Ansley Box Unavailable [phone] Allergies Allergen (clinical drug ingredient) Drug/Non Drug Allergy documented on EMR Reaction Allergy Type Onset Date Status codeine Codeine Unknown Drug Allergy Active morphine Morphine Unknown Drug Allergy Active Reason For Referral No Information Medications Medication SIG (Take, Route, Fr equency, Duration) Notes Start Date End Date Status Metoprolol Succinate Active Invega Active Topiramate Active Famotidine Active Sinemet Active Vitamin D Active Lorazepam Active Depakote Active Social History Tobacco Use: Social History Observation Description Date Details (start date - stop date) Current Smoker NA - NA Tobacco Use/Smoking Question Answer Notes Are you a current smoker How often do you smoke cigarettes? every day Problems Problem Type SNOMED Code ICD Code Onset Dates Problem Status W/U Status Risk Notes Problem Generalized atherosclerosis (97922948) Generalized atherosclerosis (I70.91) Active confirmed Problem Lymphedema (090430038) Lymphedema of both lower extremities (I89.0) Active confirmed Plan Of Treatment No Information Insurance Providers Payer Name Payer Address Payer Phone Subscriber Number Group Number Insured Name Patient Relationship to Insured Coverage Start Date Coverage End Date [employer] [address] [address] [place] [address] [id number] Radha Manuel Self - patient is the insured Medical (General) History Medical History History ICD Code Anxiety, arthritis, breast c ancer, depression, high blood pressure, migraines, thyroid problems, mental illness Surgical History Surgery Date(Month/Year)
--- OUTSIDE RECORDS SUMMARY | 2025-08-07 18:12 | XMS_ITS | Patient Health Record ---
Author Organization [facility] Address [address] [place] [address] Care Team Providers Care Telecommunicator Name Role Phone Kanu AREVALO, Felipe Primary Care Provider Unavail able Allergies Allergen (clinical drug ingredient) Drug/Non Drug Allergy documented on EMR Reaction Allergy Type Onset Date Status meperidine Demerol Unknown Drug Allergy Active morphine Morphine Sulfate Unknown Drug Allergy Active oxycodone Oxycodone HCl Unknown Drug Allergy Act eugenia Reason For Referral No Information Medications Medication SIG (Take, Route, Frequency, Duration) Notes Start Date End Date Status Zolpidem Tartrate 5 MG 1 tablet at bedti me Orally Once a day Active Saphris 10 MG 1 tablet under the tongue and allow to dissolve Sublingual Twice a day Active CPAP 14 cm H2O . 04/07/2016 Not- Taking Atorvastatin Calcium 20 MG 1 tablet Oral ly Once a day Active Metoprolol Succinate ER 50 MG 1 tablet Orally Once a day Active Carbidopa-Levodopa 25-100 MG 1 tablet Orally Three times a day Active LORazepam 1 MG 1 tablet at bedtime as needed Orally three times a day Active Famotidine 20 MG 1 tablet at bedtime Orally Once a day Active Latuda 20 MG 1 tablet Orally Once a day Active Depakote 500 MG Orally Acti ve Levothyroxine Sodium 100 MCG 1 tablet on an empty stomach in the morning Orally Once a day Active Social History Tobacco Use: Social History Observation Description Date Details (start date - stop date) Former Smoker NA - NA Smoking history: Question Answer Notes Ever smoked? Yes, former quit May 2015 Section Notes: Disabled Disabled Disabled Disabled Problems Problem Type SNOMED Code ICD Code Onset Dates Problem Status W/U Status Risk Notes Problem Obstructive sleep apnea (79061912) Obstructive sleep apnea (G47.33) Active confirmed Plan Of Treatment Pending Test Test Name Order Date Polysomnogram, Positive Airway Pressure Titration 03/06/2016 Polysomnogram, Positive Airway Pressure Titration 03/06/2016 Polysomnogram, Split Night Study 017 Insurance Providers Payer Name Payer Address Payer Phone Subscriber Number Group Number Insured Name Patient Relationship to Insured Coverage Start Date Coverage End Date Medicare [address] [address] [place], [place] [id number] BrotherRadha Self - patient is the insured [place] [employer] [address] [place], [place] [id number] BrotherRadha Self - patient is the insured Medical (General) History Medical History History ICD Code SAMY, moderate. AHI 19.5, wt: 217 @PSG 09/2015. No significant SAMY @PSG 07/2017, wt: 184. HTN HLD Breast cancer s/p double mastectomy 4yrs ago and chemo/radiation Schizophrenia Intellectual disability
--- OUTSIDE RECORDS SUMMARY | 2025-08-07 18:12 | XMS_ITS | Clinical Summary ---
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 Gender Identity Not on file Sexual Orientation Not on file Plan of Treatment Health Maintenance Due Date Last Done Comments Hepatitis C Virus (HCV) Screening 1961 Mammogram 1961 TdaP Immunization 1961 Pap Smear 1982 Cervical Cancer Screening (CCS) 1991 HPV/Cotest 1991 Cologuard 2006 Colonoscopy 2006 Colorectal Cancer Screening 2006 Immunochemical Fecal Occult Blood 2006 Pneumococcal Immunization (50+ years) (1 of 1 - PCV) 2011 Influenza Immunization (#1) 2025 10/0 03/2022, 09/09/2021, 08/14/2020, Additional history exists SARS-COV-2 Immunization ( season) 2025 11/21/2022, 12/02/2021, 12/20/2020, Additional history exists Respiratory Syncytial Virus (RSV) Immunization (Adult) (1 - 1-dose 75+ series) 2036 Zoster Immunization Completed 03/20/2023, Hepatitis B Immunization Aged Out No longer eligible based on patient's age to complete this topic Human Papillomavirus (HPV) Immunization Aged Out No longer eligible based on patient's age to complete this topic Meningococcal Immunization (ACWY) Aged Out No longer eligible based on patient's age to complete this topic Rotavirus Immunization Aged Out No lo nger eligible based on patient's age to complete this topic Insurance MEDICARE C [facility] Care Teams Historical Records Administrator Relationship Specialty Start Date End Date Tino Pan MD [address] [place] [address] PCP - General Internal Medicine 10/26/24
--- OUTSIDE RECORDS SUMMARY | 2025-08-07 18:13 | XMS_ITS | Clinical Summary ---
Author Organization [facility] Address [facility] [place] [address] Care Team Providers Care Cloth Measurer Name Role Phone Tino Pan MD Primary Care Provider [phone] Social History Tobacco Use Types Packs/Day Years Used Date Smoking Tobacco: Never Assessed Comments Unknown Sex and Gender Information Value Date Recorded Sex Assigned at Not on file Legal Sex Female 9:18 AM CDT Gender Identity Not on file Sexual Orientation Not on file Plan of Treatment Health Maintenance Due Date Last Done Comments Cervical Cancer Screening Pa p Smear (Age 30 to 64) Every 3 Years 1961 Colorectal Cancer Screening Colonoscopy (10 Years) 1961 Annual Physical 1964 Hepatitis C 1979 DTaP, Tdap and Td Vaccines ( 1 - Tdap) 1980 Cervical Cancer Screening Pa p with HPV Testing (Age 30 to 64) Every 5 Years 1991 Cervical Cancer Screening with HPV 1991 Mammogram Screening 2001 Pneumococcal Vaccine: 50+ Ye ars (1 of 1 - PCV) 2011 Zoster Vaccines (1 of 2) 2011 COVID-19 Vaccine ( - 2023-2 5 season) 2025 RSV Immunization or 60+ Years (1 - 1-dose 75+ series) 2036 Meningococcal B Vaccine Aged Out No l onger eligible based on patient's age to complete this topic Meningococcal Vaccine Aged Out No poli jose armando eligible based on patient's age to complete this topic RSV Immunizations Under 20 Months Aged Out No longer eligible based on patient's age to complete this topic Care Teams Cloth Measurer Relationship Specialty Start Date End Date Tino Pan MD [address] [place] [id number] PCP - General INTERNAL MEDICINE 10/12/24
--- OUTSIDE RECORDS SUMMARY | 2025-08-07 18:13 | XMS_ITS | Clinical Summary ---
Author Organization [facility] Building [facility] Address [address] [place] [address] Care Team Providers Care Dictating Machine Transcriber Name Role Phone Jn Ley MD Primary Care Provider [phone] Radha West. SPECIALTY TRANSFORMER ASSEMBLER Unavailable Unavailable Allergies Active Allergy Reactions Criticality Noted Date Comments Codeine Nausea only,Vomiting Medium Reaction: NAUSEA, VOMITING, Hydrochlorothiazide Hives Medium 07/16/2018 Meperidine Nausea only,Vomiting Reaction: NAUSEA, VOMITING, , Reaction: Vomiting, Morphine Other (See comments) Reaction: OTHER REACTION, Oxycodone Nausea only,Vomiting Reaction: NAUSEA, VOMITING, , Reaction: Vomiting, Medications LORazepam (ATIVAN) 1 mg tablet Take 1 tablet by mouth every 8 hours. 04/08/2018 Active famotidine (PEPCID) 20 mg tablet Take 1 tablet by mouth daily. 04/08/2018 Active carbidopa-levod opa (SINEMET) 25-100 mg per tablet Take 1 tablet by mouth every 8 hours. 04/08/[address] (DEPAKOTE) 500 mg EC tablet Take 1 tablet by mouth every 12 hours. 04/08/2018 Active atorvastatin (LIPITOR) 20 mg tablet Take 20 mg by mouth daily. 04/08/2018 Active metoprolol XL (TOPROL-XL) 50 mg 24 hr tablet Take 50 mg by mouth daily. 05/12/2018 Active levothyroxine (SYNTHROID) 100 mcg tablet Take 100 mcg by mouth daily. 04/08/2018 Active lurasidone (LATUDA) 20 mg tablet Take 20 mg by mouth daily. Active calcium carbonate-vitam in D2 (OSCAL) 250 (625)-125 mg-unit per tablet Take 1 tablet by mouth daily. Active acetaminophen (TYLENOL) 325 mg tabletIndicatio ns:Fever,Pain,m ild pain Take 2 tablets (650 mg total) by mouth every 6 (six) hours. 30 tablet 1 08/05/2018 Active traMADol (ULTRAM) 50 mg tablet Take 1 tablet (50 mg total) by mouth every 6 (six) hours as needed for pain 63 tablet 05/19/2019 Active Active Problems Problem Noted Date Diagnosed Date Primary osteoarthritis of left knee 02/25/2019 Overview (02/25/2019): Added automatically from request for surgery [id number] Aftercare following right knee joint replacement surgery 08/04/2018 Primary osteoarthritis of both knees 07/13/2018 Overview (07/13/2018): Added automatically from request for surgery [id number] BRCA1 positive 09/26/2015 Overview (02/27/2017): BRCA1 gene mutation positive Personal history of primary malignant neoplasm o f breast 10/18/2012 Overview (02/25/2017): Hx of breast cancer History of bilateral mastectomy 10/18/2012 Overview (02/26/2017): Hx of bilateral mastectomy Primary malignant neoplasm of breast 10/18/2012 Overview (02/26/2017): Breast cancer, BRCA1 positive Surgical History Surgery Date Site/Laterality Comments HYSTERECTOMY Hysterectomy TONSILLECTOMY Tonsillectomy OTHER SURGICAL HISTORY 11/23/2000 - 11/22/2001 Left Cancer, breast: lumpectomy, XRT, chemo OTHER SURGICAL HISTORY 11/23/2010 - 11/22/2011 Right CA - Breast cancer: Mastectomy OTHER SURGICAL HISTORY Bilateral BRCA1 positive: mastectomies MASTECTOMY Bilateral KNEE SURGERY BREAST SURGERY bilateral mastectomy Medical History Medical History Date Comments Hx Other Medical BIPOLAR Hx Other Medical Schizophrenia Hypertension Hypertension BRCA1 positive 2010 BRCA1 positive; Comments: YADIEL 10/03/2014 -; Laterality: bilateral Hypercholesteremia Thyroid disease Osteoporosis GERD (gastroesophageal reflux disease) Hypothyroidism Depression Bipolar disorder Malignant neoplasm of male breast (HCC) 2000 Cancer, breast; Laterality: left Malignant neoplasm of breast 2010 CA - Breast cancer; Laterality: right Family History Medical History Relation Name Comments Cancer Other Diabetes Other Relation Name Status Comments Other Social History Tobacco Use Types Packs/Day Years Used Date Smoking Tobacco: Former Cigarettes Q uit: 2014 Smokeless Tobacco: Never Alcohol Use Standard Drinks/Week Comments No 0 (1 standard drink = 0.6 oz pur e alcohol) Comments Unknown Sex and Gender Information Value Date Recorded Sex Assigned at Not on file 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 Gender Identity Not on file Sexual Orientation Not on file Obstetrics History Last Filed Vital Signs Vital Sign Reading Time Taken Comments Blood Pressure 109/74 06/16/2019 9:00 AM CDT Pulse 75 06/16/2019 9:00 AM CDT Temperature 36.1 C (97 F) 04/01/2019 11:17 AM CDT Respiratory Rate 18 04/01/2019 11:17 AM CDT Oxygen Saturation 92% 04/01/2019 8:36 AM CDT Inhaled Oxygen Concentration - - Weight 83.5 kg (184 lb) 06/16/2019 9:00 AM CDT Height 160 cm (5' 3) 06/16/2019 9:00 AM CDT Body Mass Index 32.59 06/16/2019 9:00 AM CDT Plan of Treatment Not on file Medical Devices Implanted Type Area Knit Goods Press Hand Device Identifier Shelf Expiration Date Model / Serial / Lot [employer] [id number] Smartset High Viscosity Cement 40gm Bone Gentamicin - [id number] Implanted:Qty: 1 on 08/03/2018 by Reid Granger MD at [facility] [employer] 08/22/2019 [id number] / / [id number] Ex[employer] [id number] Truliant H10 Mm Posterior Stabilize Knee 2.5 Insert Tibial Sterile - [id number] - [id number] Implanted:Qty: 1 on 08/03/2018 by Reid Granger MD at [facility] Right: Knee [employer] 07/24/2025 [id number] / 200-07-29 Optetrak 3 Peg Adavanced Patella Cemented, Thickness 7.1mm Implanted:Qty: 1 on 08/03/2018 by Reid Granger MD at [facility] Right: Knee [employer] [id number] 05/12/2023 / [id number] / [employer] [id number] - [id number] - [id number] Implanted:Qty: 1 on 08/03/2018 by Reid Granger MD at [facility] Right: Knee [employer] 01/21/202817-008-58-03 / [id number] / [employer] [id number] Truliant Knee 2.5f/2.5t Tray Tibial Sterile Latex Free - [id number] - [id number] Implanted:Qty: 1 on 08/03/2018 by Reid Granger MD at [facility] Right: Knee [employer] 02/29/202829-849-02-25 [id number] / [id number] Optetrak Logic Crc Tibial Insert Cr Constrained Implanted:Qty: 1 on 03/29/2019 by Reid Granger MD at [facility] Left: Knee [employer] 04/23/202104-525-13-30 / [id number] / N/A [employer] [id number] Palacos R+G High Viscosity Cement Bone Gentamicin Arthroplasty - [id number] Implanted:Qty: 1 on 03/29/2019 by Reid Granger MD at [facility] Left: Knee [employer] 06/22/2021 [id number] / / [id number] [employer] [id number] Palacos R+G High Viscosity Cement Bone Gentamicin Arthroplasty - [id number] Implanted:Qty: 1 on 03/29/2019 by Reid Granger MD at [facility] Left: Knee [employer] 06/22/2021 [id number] / / [id number] [employer] [id number] - [id number] - [id number] Implanted:Qty: 1 on 03/29/2019 by Reid Granger MD at [facility] Left: Knee [employer] 04/23/2027 30 / [id number] / N/A [employer] [id number] Truliant Knee 3f/3t Tray Tibial Sterile Latex Free - [id number] - [id number] Implanted:Qty: 1 on 03/29/2019 by Reid Granger MD at [facility] Left: Knee [employer] 01/18/202940-313-01-30 30 / [id number] / N/A Insurance [facility] MEDICARE [facility] IDMO MEDICARE Advance Directives For more information, please contact: [phone] Documents on File Type Date Recorded Patient Assembler Show Motor Expl anation ADVANCE DIRECTIVE 08/03/2018 * Full Code (Latest Code Status on File) Date Activated Date Inactivated Comments 08/21/2018 10:35 PM 03/29/2019 8:01 AM * Full Code Date Activated Date Inactivated Comments 08/03/2018 4:53 PM 08/05/2018 9:59 PM Care Teams Dictating Machine Transcriber Relationship Specialty Start Date End Date Jn Ley MD PCP - General Family Medicine 05/28/18 Radha West, [facility] Support Director Physical Therapy 07/23/18
--- OUTSIDE RECORDS SUMMARY | 2025-08-07 18:13 | XMS_ITS | Patient Health Record ---
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 Client with improvements in mental condition from last appt. Increase in 234 mg Invega SMITH helpful for delusions, paranoia and social behaviors. Client states she feels the best on this medication paired with depakote. Unfortunately, this has led to wt gain. Client unable to tolerate lower dosed Invega as led to increase in psychotic symptoms though wt loss was increased. PCP placed client on Trulicity, hopeful for wt loss with increase in physical activity. No changes to tx plan. Oral risperidone was completed when client was switched to 234 mg Invega. 12/06/2024 Schizoaffective disorder, bipolar type (ICD-10 - F25.0) Client with some continued delusions of bikers that are hanging outside her window, but still improved from past while on 234 mg Invega Sustenna. Overall, client appears to be doing well. No tx plan changes at this time. 12/09/2024 Urinary incontinence (ICD-10 - R32) DISCUSSED AND DEMONSTRATED KEGEL EXERCISES 12/09/2024 Diabetes mellitus (ICD-10 - E11.9) 10/03/2024 DONNA (generalized anxiety disorder) (ICD-10 - F41.1) Client with improvements in mental condition from last appt. Increase in 234 mg Invega SMITH helpful for delusions, paranoia and social behaviors. Client states she feels the best on this medication paired with depakote. Unfortunately, this has led to wt gain. Client unable to tolerate lower dosed Invega as led to increase in psychotic symptoms though wt loss was increased. PCP placed client on Trulicity, hopeful for wt loss with increase in physical activity. No changes to tx plan. Oral risperidone was completed when client was switched to 234 mg Invega. 09/29/2024 Hyperlipidemia, unspecified (ICD-10 - E78.5) ENCOURAGED CONTINUED EFFORTS AT HEALTHY DIET. 09/05/2024 Urinary incontinence (ICD-10 - R32) 08/30/2024 DONNA (generalized anxiety disorder) (ICD-10 - F41.1) Client with increase in paranoia, irritability, delusional thinking and hallucinations . She has historically done quite well on 234 mg of Invega Sustenna SMITH with controlled behaviors and little to no delusions, however she has had weight gain with this dosage in the past. Client breaks down crying during the session stating her anxiety regarding the biker ppl (her ongoing delusion) is unbareable. Will change SMITH to 234 mg for next injection and start night time 1 mg risperidone until SMITH injection is due. Discussed with staff the changes and with client who are both agreeable. Discussed with client and staff the need for increased exercise given the increase in Invega. 12/06/2024 DONNA (generalized anxiety disorder) (ICD-10 - F41.1) Client with some continued delusions of bikers that are hanging outside her window, but still improved from past while on 234 mg Invega Sustenna. Overall, client appears to be doing well. No tx plan changes at this time. 02/09/2025 DONNA (generalized anxiety disorder) (ICD-10 - F41.1) Client with some issues with broken relationships with her friends recently due to c/o her friends of my always talking about myself and not others. Client unable to have insight to reflect on this. States this stressor caused some increase in depression and AVH, but that she feels this has mostly resolved. Her mattress spring encaser states she feels client is doing fairly good aside from needing increasing assistance and the potential need to move to higher level of care (ie fpc). Client states she does not want this and is committed to doing more for herself. 04/05/2025 Extrapyramidal and movement disorder, unspecified (ICD-10 - G25.9) 06/13/2025 DONNA (generalized anxiety disorder) (ICD-10 - F41.1) Client doing well from mental health perspective. No changes needed at this time. 05/02/2025 Hyperlipidemia, unspecified (ICD-10 - E78.5) 02/02/2025 Yeast dermatitis (ICD-10 - B37.2) 02/02/2025 Osteoarthritis of knees, bilateral (ICD-10 - M17.0) 05/02/2025 Lymphedema of both lower extremities (ICD-10 - I89.0) 06/13/2025 Vitamin D deficiency (ICD-10 - E55.9) Client doing well from mental health perspective. No changes needed at this time. 04/05/2025 Vitamin D deficiency (ICD-10 - E55.9) 02/09/2025 Extrapyramidal and movement disorder, unspecified (ICD-10 - G25.9) Client with some issues with broken relationships with her friends recently due to c/o her friends of my always talking about myself and not others. Client unable to have insight to reflect on this. States this stressor caused some increase in depression and AVH, but that she feels this has mostly resolved. Her mattress spring encaser states she feels client is doing fairly good aside from needing increasing assistance and the potential need to move to higher level of care (ie fpc). Client states she does not want this and is committed to doing more for herself. 09/05/2024 Former smoker (ICD-10 - Z87.891) 08/30/2024 Vitamin D deficiency (ICD-10 - E55.9) Client with increase in paranoia, irritability, delusional thinking and hallucinations . She has historically done quite well on 234 mg of Invega Sustenna SMITH with controlled behaviors and little to no delusions, however she has had weight gain with this dosage in the past. Client breaks down crying during the session stating her anxiety regarding the biker ppl (her ongoing delusion) is unbareable. Will change SMITH to 234 mg for next injection and start night time 1 mg risperidone until SMITH injection is due. Discussed with staff the changes and with client who are both agreeable. Discussed with client and staff the need for increased exercise given the increase in Invega. 09/29/2024 Schizoaffective disorder, bipolar type (ICD-10 - F25.0) D/W PSYCH STOPPING RISPERIDONE AND DULOXETINE (FORMER MAKES HER LACTATE, LATTER MAKES HER FEEL BAD). 10/03/2024 Extrapyramidal and movement disorder, unspecified (ICD-10 - G25.9) Client with improvements in mental condition from last appt. Increase in 234 mg Invega SMITH helpful for delusions, paranoia and social behaviors. Client states she feels the best on this medication paired with depakote. Unfortunately, this has led to wt gain. Client unable to tolerate lower dosed Invega as led to increase in psychotic symptoms though wt loss was increased. PCP placed client on Trulicity, hopeful for wt loss with increase in physical activity. No changes to tx plan. Oral risperidone was completed when client was switched to 234 mg Invega. 12/06/2024 Extrapyramidal and movement disorder, unspecified (ICD-10 - G25.9) Client with some continued delusions of bikers that are hanging outside her window, but still improved from past while on 234 mg Invega Sustenna. Overall, client appears to be doing well. No tx plan changes at this time. 12/06/2024 Vitamin D deficiency (ICD-10 - E55.9) Client with some continued delusions of bikers that are hanging outside her window, but still improved from past while on 234 mg Invega Sustenna. Overall, client appears to be doing well. No tx plan changes at this time. 09/29/2024 Nutritional counseling (ICD-10 - Z71.3) 10/03/2024 Vitamin D deficiency (ICD-10 - E55.9) Client with improvements in mental condition from last appt. Increase in 234 mg Invega SMITH helpful for delusions, paranoia and social behaviors. Client states she feels the best on this medication paired with depakote. Unfortunately, this has led to wt gain. Client unable to tolerate lower dosed Invega as led to increase in psychotic symptoms though wt loss was increased. PCP placed client on Trulicity, hopeful for wt loss with increase in physical activity. No changes to tx plan. Oral risperidone was completed when client was switched to 234 mg Invega. 09/05/2024 Nutritional counseling (ICD-10 - Z71.3) 08/30/2024 Extrapyramidal and movement disorder, unspecified (ICD-10 - G25.9) Client with increase in paranoia, irritability, delusional thinking and hallucinations . She has historically done quite well on 234 mg of Invega Sustenna SMITH with controlled behaviors and little to no delusions, however she has had weight gain with this dosage in the past. Client breaks down crying during the session stating her anxiety regarding the biker ppl (her ongoing delusion) is unbareable. Will change SMITH to 234 mg for next injection and start night time 1 mg risperidone until SMITH injection is due. Discussed with staff the changes and with client who are both agreeable. Discussed with client and staff the need for increased exercise given the increase in Invega. 02/09/2025 Vitamin D deficiency (ICD-10 - E55.9) Client with some issues with broken relationships with her friends recently due to c/o her friends of my always talking about myself and not others. Client unable to have insight to reflect on this. States this stressor caused some increase in depression and AVH, but that she feels this has mostly resolved. Her mattress spring encaser states she feels client is doing fairly good aside from needing increasing assistance and the potential need to move to higher level of care (ie fpc). Client states she does not want this and is committed to doing more for herself. 06/13/2025 Extrapyramidal and movement disorder, unspecified (ICD-10 - G25.9) Client doing well from mental health perspective. No changes needed at this time. 04/05/2025 Medication monitoring encounter (ICD-10 - Z51.81) 05/02/2025 Osteoarthritis of knees, bilateral (ICD-10 - M17.0) 05/02/2025 Rosacea (ICD-10 - L71.9) 09/05/2024 Encounter for immunization (ICD-10 - Z23) Ordered per standing orders for administering influenza vaccine to adults. 09/29/2024 Extrapyramidal and movement disorder, unspecified (ICD-10 - G25.9) 09/29/2024 Lymphedema of both lower extremities (ICD-10 - I89.0) 09/05/2024 Diabetes mellitus (ICD-10 - E11.9) 09/05/2024 Sleep apnea in adult (ICD-10 - G47.33) 05/02/2025 Schizoaffective disorder, bipolar type (ICD-10 - F25.0) 05/02/2025 Medication monitoring encounter (ICD-10 - Z51.81) 09/05/2024 Rosacea (ICD-10 - L71.9) 09/05/2024 Screening for lung cancer (ICD-10 - Z12.2) 09/05/2024 Screening for colon cancer (ICD-10 - Z12.11) [place]30/[place]24 [place]. Discussed sleep hygiene and caffeine intake with encouragement to limit electronic devices an hour before bed and to limit caffeine after 3:00pm. Exercise benefits for mood and health discussed. Psychoeducation regarding psychiatric illness provided. Client was educated about risks and benefits of medication, alternatives to medication, off label uses of medication, suicidal ideation with SSRIs, self-administrati on and compliance with medication along with how to safely store medication. Verbal informed consent obtained. Client agrees to return sooner if symptoms worsen or if suicidal or homicidal ideations occur. Client has the phone number to the 24-hour crisis line at [facility]. Questions addressed. Client verbalized understanding of all information and is agreeable to treatment plan. Client with increase in paranoia, irritability, delusional thinking and hallucinations . She has historically done quite well on 234 mg of Invega Sustenna SMITH with controlled behaviors and little to no delusions, however she has had weight gain with this dosage in the past. Client breaks down crying during the session stating her anxiety regarding the biker ppl (her ongoing delusion) is unbareable. Will change SMITH to 234 mg for next injection and start night time 1 mg risperidone until SMITH injection is due. Discussed with staff the changes and with client who are both agreeable. Discussed with client and staff the need for increased exercise given the increase in Invega. 09/05/[address] DR. PIÑA. 10/03/2024 [place]. Discussed sleep hygiene and caffeine intake with encouragement to limit electronic devices an hour before bed and to limit caffeine after 3:00pm. Exercise benefits for mood and health discussed. Psychoeducation regarding psychiatric illness provided. Client was educated about risks and benefits of medication, alternatives to medication, off label uses of medication, suicidal ideation with SSRIs, self-administrati on and compliance with medication along with how to safely store medication. Verbal informed consent obtained. Client agrees to return sooner if symptoms worsen or if suicidal or homicidal ideations occur. Client has the phone number to the 24-hour crisis line at [facility]. Questions addressed. Client verbalized understanding of all information and is agreeable to treatment plan. Client with improvements in mental condition from last appt. Increase in 234 mg Invega SMITH helpful for delusions, paranoia and social behaviors. Client states she feels the best on this medication paired with depakote. Unfortunately, this has led to wt gain. Client unable to tolerate lower dosed Invega as led to increase in psychotic symptoms though wt loss was increased. PCP placed client on Trulicity, hopeful for wt loss with increase in physical activity. No changes to tx plan. Oral risperidone was completed when client was switched to 234 mg Invega. 12/06/2024 [place]. Discussed sleep hygiene and caffeine intake with encouragement to limit electronic devices an hour before bed and to limit caffeine after 3:00pm. Exercise benefits for mood and health discussed. Psychoeducation regarding psychiatric illness provided. Client was educated about risks and benefits of medication, alternatives to medication, off label uses of medication, suicidal ideation with SSRIs, self-administrati on and compliance with medication along with how to safely store medication. Verbal informed consent obtained. Client agrees to return sooner if symptoms worsen or if suicidal or homicidal ideations occur. Client has the phone number to the 24-hour crisis line at [facility]. Questions addressed. Client verbalized understanding of all information and is agreeable to treatment plan. Client with some continued delusions of bikers that are hanging outside her window, but still improved from past while on 234 mg Invega Sustenna. Overall, client appears to be doing well. No tx plan changes at this time. 12/09/2024 Other [place] PDMP [id number]/07/12 25112/03/2023LO Razepam 1 MG OFQNUS21.0301 [facility] - [id number] [facility] [id number] /1 11/2023LORazepa m 1 MG NXQMET24.0301 [facility] [id number] [facility] [id number] /0 02/2024LORazepa m 1 MG DTISFT44.0301 [facility]6691251Clicko [facility] [id number] /0 02/2024LORazepa m 1 MG ZHNCWT82.0301 [id number] [facility] [id number] /0 02/2024LORazepa m 1 MG PTXPMP51.0301 [id number] /0 07/2024LORazepa m90.0301 [facility]6691251[facility] [id number] /0 07/2024LORazepa m90.[id number] /1 12/2023LORazepa m90.[address] [id number] /2 07/2024LORazepa m90.0301 [facility] [place], [place] [id number] /0 03/2024LORazepa m90.0301 [facility] [place], [place] [address]NA0IL1 02/09/2025 [place]. Discussed sleep hygiene and caffeine intake with encouragement to limit electronic devices an hour before bed and to limit caffeine after 3:00pm. Exercise benefits for mood and health discussed. Psychoeducation regarding psychiatric illness provided. Client was educated about risks and benefits of medication, alternatives to medication, off label uses of medication, suicidal ideation with SSRIs, self-administrati on and compliance with medication along with how to safely store medication. Verbal informed consent obtained. Client agrees to return sooner if symptoms worsen or if suicidal or homicidal ideations occur. Client has the phone number to the 24-hour crisis line at [facility]. Questions addressed. Client verbalized understanding of all information and is agreeable to treatment plan. Client with some issues with broken relationships with her friends recently due to c/o her friends of my always talking about myself and not others. Client unable to have insight to reflect on this. States this stressor caused some increase in depression and AVH, but that she feels this has mostly resolved. Her mattress spring encaser states she feels client is doing fairly good aside from needing increasing assistance and the potential need to move to higher level of care (ie fpc). Client states she does not want this and is committed to doing more for herself. 04/05/2025 [place]. Discussed sleep hygiene and caffeine intake with encouragement to limit electronic devices an hour before bed and to limit caffeine after 3:00pm. Exercise benefits for mood and health discussed. Psychoeducation regarding psychiatric illness provided. Client was educated about risks and benefits of medication, alternatives to medication, off label uses of medication, suicidal ideation with SSRIs, self-administrati on and compliance with medication along with how to safely store medication. Verbal informed consent obtained. Client agrees to return sooner if symptoms worsen or if suicidal or homicidal ideations occur. Client has the phone number to the 24-hour crisis line at [facility]. Questions addressed. Client verbalized understanding of all information and is agreeable to treatment plan. 06/13/2025 [place]. Discussed sleep hygiene and caffeine intake with encouragement to limit electronic devices an hour before bed and to limit caffeine after 3:00pm. Exercise benefits for mood and health discussed. Psychoeducation regarding psychiatric illness provided. Client was educated about risks and benefits of medication, alternatives to medication, off label uses of medication, suicidal ideation with SSRIs, self-administrati on and compliance with medication along with how to safely store medication. Verbal informed consent obtained. Client agrees to return sooner if symptoms worsen or if suicidal or homicidal ideations occur. Client has the phone number to the 24-hour crisis line at [facility]. Questions addressed. Client verbalized understanding of all information and is agreeable to treatment plan. Client doing well from mental health perspective. No changes needed at this time. Plan Of Treatment Future Test Test Name Order Date Low Dose CT: Lung Cancer Screening 09/05 Polysomnography 09/27/2024 Next Appt Details Provider Name:Luis cabrera, 08/14/2025 09:40:00 AM, [address], [place], [address], Provider Name:Tino Pan , 08/15/2025 11:40:00 AM, [address], [place], [address], Insurance Providers Payer Name Payer Address Payer Phone Subscriber Number Group Number Insured Name Patient Relationship to Insured Coverage Start Date Coverage End Date [facility] [place] [address] [phone] [id number] BrothRadha ruffin Self - patient is the insured 4 MEDICAID [address] [place] [address] [id number] BrothRadha ruffin Self - patient is the insured 1 4 [facility] Att[facility] Claims Department [address] [place] [address] [phone] [id number] Radha Manuel Self - patient is the insured 5 Medications Administered Medication Instructions Date of Administration Dosage Notes Invega Sustenna 03/10/2024 234 mg Invega Sustenna 03/17/2024 156 mg Invega Sustenna 04/07/2024 156 mg Client re fuses to rotate injection sites. Invega Sustenna 05/05/2024 156 mg Client re fuses to rotate injection sites. Invega Sustenna 06/02/2024 156 mg Client re fuses to rotate injection sites. Invega Sustenna 06/30/2024 156 mg Invega Sustenna 07/28/2024 156 mg Invega Sustenna 08/23/2024 156 mg Invega Sustenna 09/20/2024 234 mg Given at [facility] Invega Sustenna 10/17/2024 234 mg Invega Sustenna 11/14/2024 234 mg Invega Sustenna 12/15/2024 234 mg Invega Sustenna 01/12/2025 234 mg Invega Sustenna 02/08/2025 234 mg Invega Sustenna 03/08/2025 234 mg Invega Sustenna 04/06/2025 234 mg Invega Sustenna 05/04/2025 234 mg Client de clined to rotate injection site Invega Sustenna 06/01/2025 234 mg Invega Sustenna 06/29/2025 234 mg Medical (General) History Medical History History ICD Code HTN HLD Surgical History Surgery Date(Month/Year) Hospitalization History Reason Date(Month/Year) x4 unknown dates
[2025-08-07] MEDS: ACETAMINOPHEN 325 MG TABLET 650 MG PO (19:06)
--- NOTE | 2025-08-07 19:07 | PC.NURSE ---
[facility] [phone] was contacted for pt transportation upon d/c.
--- OUTSIDE RECORDS SUMMARY | 2025-08-07 19:13 | XMS_ITS | Clinical Summary ---
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
--- OUTSIDE RECORDS SUMMARY | 2025-08-07 19:13 | XMS_ITS | Clinical Summary ---
Author Organization [facility] Medical Office Building [address] Address [address] [place] [address] Care Team Providers Care Infantry Assaultman Name Role Phone Jn Ley MD Primary Care Provider Radha West. 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 Gender Identity Not on file Sexual Orientation [...] on file Medical Devices Implanted Type Area Flight Operations Dispatch Clerk Device Identifier Shelf Expiration Date Model / Serial / Lot [employer] [id number] Smartset High Viscosity Cement 40gm Bone Gentamicin - [id number] Implanted:Qty: 1 on 08/03/2018 by Reid Granger MD at [facility] [employer] 08/22/2019 [id number] / / [id number] Ex[employer] [id number] Truliant H10 Mm Posterior Stabilize Knee 2.5 Insert Tibial Sterile - [id number] - [id number] Implanted:Qty: 1 on 08/03/2018 by Reid Granger MD at [facility] Right: Knee [employer] 07/24/2025 [id number] / 200-07-29 Optetrak 3 Peg Adavanced Patella Cemented, Thickness 7.1mm Implanted:Qty: 1 on 08/03/2018 by Reid Granger MD at [facility] Right: Knee [employer] [id number] 05/12/2023 / [id number] / [employer] [id number] - [id number] - [id number] Implanted:Qty: 1 on 08/03/2018 by Reid Granger MD at [facility] Right: Knee [employer] 01/21/202899-408-31-03 / [id number] / [employer] [id number] Truliant Knee 2.5f/2.5t Tray Tibial Sterile Latex Free - [id number] - [id number] Implanted:Qty: 1 on 08/03/2018 by Reid Granger MD at [facility] Right: Knee [employer] 02/29/202822-296-43-25 [id number] / [id number] Optetrak Logic Crc Tibial Insert Cr Constrained Implanted:Qty: 1 on 03/29/2019 by Reid Granger MD at [facility] Left: Knee [employer] 04/23/202190-366-24-30 / [id number] / N/A [employer] [id number] Palacos R+G High Viscosity Cement Bone Gentamicin Arthroplasty - [id number] Implanted:Qty: 1 on 03/29/2019 by Reid Granger MD at [facility] Left: Knee [employer] 06/22/2021 [id number] / / [id number] [employer] [id number] Palacos R+G High Viscosity Cement Bone Gentamicin Arthroplasty - [id number] Implanted:Qty: 1 on 03/29/2019 by Reid Granger MD at [facility] Left: Knee [employer] 06/22/2021 [id number] / / [id number] [employer]ech [id number] - [id number] - [id number] Implanted:Qty: 1 on 03/29/2019 by Reid Granger MD at [facility] Left: Knee [employer] 04/23/2027 30 / [id number] / N/A [employer] [id number] Truliant Knee 3f/3t Tray Tibial Sterile Latex Free - [id number] - [id number] Implanted:Qty: 1 on 03/29/2019 by Reid Granger MD at [facility] Left: Knee [employer] 01/18/202993-106-91-30 30 / [id number] / [place] [address] [facility] MEDICARE IDPA [facility] IDIN MEDICARE Advance Directives For more information, please contact: [phone] Documents on File Type Date Recorded 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
--- OUTSIDE RECORDS SUMMARY | 2025-08-07 19:13 | XMS_ITS | Clinical Summary ---
Author Organization [facility] Address [facility] [place] [address] Care Team Providers Care Pretzel Twister Name Role Phone Tino Pan MD Primary Care Provider [phone] Social History Tobacco Use Types Packs/Day Years [...] age to complete this topic Care Teams Pretzel Twister Relationship Specialty Start Date End Date Tino Pan MD [address] [place] [phone] PCP - General INTERNAL MEDICINE 10/12/24
== END 2025-08-07 19:30 | disposition home or self-care (01) ==
PROVIDERS: Emergency Provider Emergency Medicine; PCP Internal Medicine
DX: R51.9 Headache, unspecified (principal); E78.5 Hyperlipidemia, unspecified; E03.9 Hypothyroidism, unspecified; I10 Essential (primary) hypertension; Z87.891 Personal history of nicotine dependence
CPT/HCPCS: 70450; 99284; A9270